=== PATIENT | male | born 1950 | race Caucasian/White ===

== ENCOUNTER 2019-04-17 22:50 | Inpatient (IN) | payer OTHER, MEDICAID ==
[~2019-04-17] VITALS: Ht 170.2 cm; Wt 78.5 kg
--- NOTE | 2019-04-17 22:55 | NUR ---
PT TREVER ALS. TAKEN TO BED 9
--- NOTE | 2019-04-17 23:00 | NUR ---
68 Y/O MALE BIB [facility], STAFF REPORTS PT WAS RUNNING A FEVER AND DECREASED SP02. UPON ARRIVAL TO ER, GCS 13 (BASELINE PER [facility]), TEMP 103.5, RESP EVEN AND UNLABORED, RHONCI HEARD IN BILAT BASES. BOWEL SOUNDS NORMOACTIVE IN ALL QUADRANTS. G TUBE NOTED, PT SUFFERS FROM DYSPHAGIA AND IS NPO. ALL MEDS/ FOOD IS THROUGH G TUBE. PT IS BEDBOUND, UNABLE TO AMBULATE (AT BASELINE PER [facility]). SKIN INTACT. CAP REFILL <3. COOL MEASURE IMPLEMENTED UPON ARRIVAL. PMH: CVA, CEREBRAL PALSY, SCHIZO, DEMENTA, DM, EPILEPSY NKA
[2019-04-17] MEDS ORDERED: BLOOD GLUCOSE MONITORING 1 DEV DEV FS STA (23:01)
[2019-04-17] MEDS ORDERED: NACL 0.9% 0 ML IV STA (23:01)
[2019-04-17 23:02] VITALS: BP 106/55
[2019-04-17] MEDS ORDERED: IBUPROFEN 600 MG TAB PO ONE (23:05)
--- NOTE | 2019-04-17 23:30 | NUR ---
BASED ON THE ABG RESULTS PT WAS PLACED 7L SIMPLE MASK WITH SPO2 OF 95%.
[2019-04-17 23:39] LABS: HEMATOCRIT 39.6 % (36-52); HEMOGLOBIN 13.5 g/dL (12.0-18.0); MEAN CORPUSCULAR HEMOGLOBIN 32 pg (27-31); MEAN CORPUSCULAR HGB CONC 34 g/dL (33-37); MEAN CORPUSCULAR VOLUME 93.5 fL (80-94); PLATELET COUNT (AUTO) 125 K/uL (140-450); RED BLOOD CELL COUNT(AUTO) 4.23 MIL/uL (4.20-6.10); RED CELL DISTRIBUTION WIDTH 15.8 % (11.6-13.7); WHITE BLOOD COUNT (AUTO) 7.3 K/uL (4.8-10.8)
[2019-04-17 23:53] LABS: ALBUMIN 2.9 g/dL (3.4-5.0); ANION GAP 9.2 (8-16); CARBON DIOXIDE 29.6 mmol/L (21-32); CREATININE 0.8 mg/dL (0.6-1.3); POTASSIUM 4.8 mmol/L (3.5-5.1); TOTAL BILIRUBIN 0.2 mg/dL (0.0-1.0)
[2019-04-17 23:59] LABS: PROTHROMBIN TIME 11.4 secs (10.8-13.4)
[2019-04-18] VITALS (7 sets, daily range): BP systolic 84–113; BP diastolic 42–60
--- NOTE | 2019-04-18 | NUR ---
STRAIGHT CATH PROCEDURE DONE AT BEDSIDE TO OBTAIN URINE SAMPLE. PT TOLERATED PROCEDURE WELL. VSS
[2019-04-18 00:01] LABS: EOSINOPHILS % (MANUAL) 1 % (0-4); LYMPHOCYTES % (MANUAL) 6 % (20-46); MONOCYTES % (MANUAL) 7 % (5-12)
[2019-04-18 00:32] LABS: APPEARANCE,URINE SL CLOUDY (CLEAR); BILIRUBIN,URINE NEGATIVE (NEGATIVE); BLOOD, URINE 1+ (NEGATIVE); COLOR,URINE YELLOW (YELLOW); LEUKOCYTE ESTERASE ,URINE 3+ (NEGATIVE); NITRITE, URINE NEGATIVE (NEGATIVE); UGLUCOSE NEGATIVE (NEGATIVE)
[2019-04-18 00:46] LABS: RBC,URINE TOO NUMEROUS TO COUN /HPF (0-5); WBC,URINE TOO MANY TO COUNT /HPF (0-5)
[2019-04-18] MEDS ORDERED: ONDANSETRON 4 MG/2 ML VIAL IM/IVP PRN (01:30)
[2019-04-18] MEDS ORDERED: ACETAMINOPHEN 325 MG TAB PO PRN (01:30)
[2019-04-18] MEDS ORDERED: ALBUTEROL SULFATE/IPRATROPIU 3 ML SOL IH PRN (01:30)
[2019-04-18] MEDS ORDERED: NACL 0.9% 1,000 ML IV SCH ×3 (01:30→10:15)
[2019-04-18] MEDS ORDERED: DOCUSATE SODIUM 100 MG GELCAP PO PRN (01:30)
[2019-04-18] MEDS ORDERED: FAMO40PD4 PO (02:00)
[2019-04-18] MEDS ORDERED: CARB100S PO (02:00)
[2019-04-18] MEDS ORDERED: HUM SUBQ (02:00)
[2019-04-18] MEDS ORDERED: [UNRECOGNIZED DRUG - CODE] GT (02:00)
[2019-04-18] MEDS ORDERED: APIX2.5 GT (02:00)
[2019-04-18] MEDS ORDERED: QUET300T1 GT (02:01)
[2019-04-18] MEDS ORDERED: VALP250S5 GT (02:01)
[2019-04-18] MEDS ORDERED: MID5 GT (02:01)
--- NOTE | 2019-04-18 02:35 | NUR ---
RECEIVED PATIENT FROM ED VIA GURNEY. BEDSIDE REPORT DONE. PATIENT IS ON 7LPM VIA MASK. IV ACCESS ON RIGHT THUMB 20 GAUGE, SALINE LOCK. SKIN IS INTACT. CALL LIGHT WITHIN PATIENT REACH. VITAL SIGNS TAKEN. INITIAL ASSESSMENT DONE. BED IN LOW, SAFETY MEASURES IN PLACE. MRSA SWAB DONE AND SENT TO LAB. ORIENTED TO ROOM. CALL LIGHT PLACED WITHIN PATIENT REACH. WILL CONTINUE TO MONITOR PATIENT.
--- NOTE | 2019-04-18 02:44 | NUR ---
Pt transferred to Tele via [facility] room 107-b
[2019-04-18] MEDS ORDERED: INSULIN LISPRO SLIDING SCALE 100 UNITS/ML VIAL SUBQ PRN (03:25)
[2019-04-18] MEDS ORDERED: ONDANSETRON 4 MG/2 ML VIAL IVP PRN (03:25)
--- NOTE | 2019-04-18 04:00 | NUR ---
VITALS TAKEN AT THIS TIME. VISIBLE CHEST RISE AND FALL NOTED. WILL CONTINUE TO MONITOR PATIENT.
[2019-04-18] MEDS ORDERED: cefTRIAXone 1,000 MG VIAL ONE (04:25)
[2019-04-18] MEDS: BLOOD GLUCOSE MONITORING 1 DEV DEV FS SCH ×4 (06:10→21:00)
--- NOTE | 2019-04-18 06:13 | NUR ---
PATIENT NOTED WITH BLOOD GLUCOSE RESULT OF 94. NO INSULIN COVERAGE NEEDED.
--- NOTE | 2019-04-18 06:14 | NUR ---
PATIENT IN STABLE CONDITION. VISIBLE CHEST RISE AND FALL NOTED. CALL LIGHT WITHIN PATIENT REACH. WILL ENDORSE TO AM SHIFT NURSE FOR CONTINUITY OF CARE.
--- NOTE | 2019-04-18 06:35 | NUR ---
SPOKE TO DR. NASREEN GLOVER. PATIENT'S BLOOD PRESSURES ARE IN THE 80/50s. NEW ORDERS MADE AND CARRIED OUT.WILL CONTINUE TO MONITOR PATIENT.
[2019-04-18] MEDS: NACL 0.9% 1,000 ML IV SCH ×3 (06:45→10:23)
--- NOTE | 2019-04-18 07:10 | NUR ---
RECEIVED REPORT FROM BUILD AUTOMATION ENGINEER NURSE. PT IS SLEEPING. NO SIGNS OF DISTRESS. PT HAS O2 MASK AT 7L. PT HAS IV AT RIGHT THUB Addendum: 04/18/19 at 0740 by Lucinda Dominguez RN RECEIVED REPORT FROM BUILD AUTOMATION ENGINEER NURSE. PT IS SLEEPING. NO SIGNS OF DISTRESS. PT HAS O2 MASK AT 7L. PT HAS IV AT RIGHT THUMB 20G INFUSING AT BOLUS. PT HAS NKA, FULL CODE. PT HAS GTUBE. SKIN INTACT. WILL CONTINUE TO MONITOR
[2019-04-18 07:20] LABS: BASOPHILS % (AUTO) 0.6 % (0.0-2.0); HEMATOCRIT 39.7 % (36-52); HEMOGLOBIN 13.6 g/dL (12.0-18.0); LYMPHOCYTES # (AUTO) 0.8 K/uL (2.0-11.5); MEAN CORPUSCULAR HEMOGLOBIN 32 pg (27-31); MEAN CORPUSCULAR HGB CONC 34 g/dL (33-37); MONOCYTES # (AUTO) 0.5 K/uL (0.8-1.0); MONOCYTES % (AUTO) 9.4 % (1.7-9.3); NEUTROPHILS # (AUTO) 4.3 K/uL (1.8-7.7); PLATELET COUNT (AUTO) 103 K/uL (140-450); RED BLOOD CELL COUNT(AUTO) 4.22 MIL/uL (4.20-6.10); RED CELL DISTRIBUTION WIDTH 15.8 % (11.6-13.7); WHITE BLOOD COUNT (AUTO) 5.7 K/uL (4.8-10.8)
[2019-04-18 07:47] LABS: ANION GAP 9.5 (8-16); CARBON DIOXIDE 28.4 mmol/L (21-32); CREATININE 0.9 mg/dL (0.6-1.3); POTASSIUM 3.9 mmol/L (3.5-5.1)
[2019-04-18] MEDS: DEXT 5% / NACL 0.45% 1,000 ML IV SCH ×3 (08:10→21:15)
--- NOTE | 2019-04-18 08:19 | NUR ---
BP 95/ 47 AFTER BOLUS. SPOKE TO DAVIN TO PAGE MARTA BARRIOS REGARDING PT'S STATUS. HANGED D5 1/2 NS AT 1OO ML/HR.
--- NOTE | 2019-04-18 08:35 | NUR ---
SPOKE TO DR. DOWNEY. HE ORDERED TO TRANSFER PT TO ICU AND GIVE 1000 NS BOLUS.
--- NOTE | 2019-04-18 08:37 | NUR ---
PATIENT HAS BEEN SCREENED AND CATEGORIZED HIGH NUTRITION RISK. PATIENT WILL BE SEEN WITHIN 1-2 DAYS OF ADMISSION. 04/18/19-04/19/[address]
--- NOTE | 2019-04-18 08:41 | NUR ---
HANGED NS 1000 AT BOLUS.
[2019-04-18] MEDS ORDERED: LACTOBACILLUS RHAMNOSUS GG 1 EACH CAP PO SCH (09:00)
--- NOTE | 2019-04-18 09:23 | NUR ---
PT. ADMITTED WITH LOW PAWEL SCALE AT RISK, CONTINUE TO FOLLOW PRESSURE ULCER PREVENTION INTERVENTIONS. -TURN AND REPOSITION PATIENT Q 2H -ASSESS AND MONITOR SKIN CONDITION DURING POSITION CHANGE -OFFLOAD BILATERAL HEELS BY PLACING PILLOWS UNDER CALVES AT ALL TIMES, UNLESS OTHERWISE CONTRAINDICATED -PRESSURE REDISTRIBUTION BY PLACING PILLOWS AND OFFLOADING SACRALCOCCYX -KEEP SKIN CLEAN AND DRY AT ALL TIMES.
--- NOTE | 2019-04-18 10:13 | NUR ---
Spoke to Dr. Lam to update on the patient's condition. BP 95/53 pulse 85 and pulse ox 96% on a mask. gave order to give 1 additional liter and hold off on transfer to ICU and will be in shortly to evaluate patient.
--- NOTE | 2019-04-18 10:14 | NUR ---
SHAHRAM AND REFUGIO TALKED TO DR. DOWNEY REGARDING TRANSFER TO ICU. DR. DOWNEY ORDERED TO HOLD TRANSFER TO ICU AND GIVE ANOTHER BOLUS OF NS. WILL CONTINUE TO MONITOR
--- NOTE | 2019-04-18 10:26 | NUR ---
HANGED 1L OF NS RUNNING BOLUS ORDERED. PT'S CURRENT BP IS 87/49
--- NOTE | 2019-04-18 11:00 | NUR ---
BP 104/53, P 98, R 21, 02 98%. WILL CONTINUE TO MONITOR
--- NOTE | 2019-04-18 11:34 | NUR ---
GLUCOSE CHECKED= 82, NO INSULIN COVERAGE
--- NOTE | 2019-04-18 11:40 | NUR ---
DISCHARGE PLANNING: THIS IS A 68 Y/O MALE PATIENT FROM [facility], WHO CAME IN DUE TO CONGESTION, COUGH, HIGH FEVER AND LOW O2 SAT FOR THE PAST 1 DAY. PAST MEDICAL HISTORY INCLUDE DEMENTIA AND PNEUMONIA. INITIAL DIAGNOSIS OF UROSEPSIS. CURRENT LABS INCLUDE WBC 5.7, H/H 13.6/39.7, NA/K 135/3.9, BUN/CREA 31/0.9. ON ROCEPHIN. MRSA NARES, URINE AND BLOOD CULTURES PENDING. ID CONSULT WITH DR. EARLY IN PLACE. DC PLAN BACK TO [facility] ONCE STABLE. Addendum: 04/22/19 at 1227 by Sarah Del Cid CM Pt discussed during interdisciplinary meeting. Pt on droplet isolation for Influenza B+; on Tamiflu (day 4 today) and IV Rocephin. Pt needs 5 more days of IV Rocephin. DC plan is SNF for continued IV abx. 11:30am - Left a voicemail for Ofelia with [facility]. Referral faxed to [facility]. DC plan tomorrow Thursday. CARMEN Loredo/GIRMA Ext [phone] Addendum: 04/22/19 at 1555 by Sarah Del Cid CM [facility] unable to accept this patient. Referral sent to [facility]. Alison will continue following up. DIVINE Loredo Ext [phone] Addendum: 04/23/19 at 1257 by Taye Norman ALISON contacted Sadie from [facility] [phone]. Per Sadie, there are no isolation beds available and said to call tomorrow. ALISON/GIRMA will follow up as necessary. Addendum: 04/25/19 at 0847 by Iris Alcala RECEIVED A CALL FROM BLU OF [facility], TO FOLLOW UP ON PATIENT'S DC ORDER. INFORMED HER THAT PER [facility], THEY DO NOT HAVE AN ISO ROOM AT THIS TIME. SHE STATED TO [facility]. WILL FAX INQUIRY. Addendum: 04/25/19 at 0913 by Iris Alcala CM REFERRAL SENT TO [facility]. WILL FOLLOW UP. Addendum: 04/25/19 at 1025 by Iris Alcala CM REFERRAL SENT TO [facility]. WILL FOLLOW UP. Addendum: 04/25/19 at 1032 by Iris Alcala CM REFERRAL SENT TO [facility]. WILL FOLLOW UP. Addendum: 04/25/19 at 1330 by Iris Alcala CM 1156: PER IVORY INTAKE AT [facility], WILL REVIEW THE REFERRAL. PER GAVINO ESPINOSA [facility], NO ISO BED AT THIS TIME. PER [facility], NO ISO BEDS AT THIS TIME. Addendum: 04/25/19 at 1332 by Iris Alcala CM 1325: PER IVORY OF [facility], PATIENT EXHAUSTED ALL HIS MEDICARE DAYS AND SECONDARY WILL NOT COVER SNF DAYS. ALEJO LEAL NURSE MADE AWARE. Addendum: 04/25/19 at 1604 by Iris Alcala CM LEFT MESSAGE TO OFELIA RAYO AT [facility] REGARDING UPDATES ON PLACEMENT. Addendum: 04/25/19 at 1637 by Iris Alcala CM CHARGE NURSE MADE AWARE THAT THERE IS NO ACCEPTING FACILITY AT THIS TIME. SHE STATED SHE WILL INFORM DR. DOWNEY.
--- NOTE | 2019-04-18 12:48 | NUR ---
04/18/19 RD INITIAL ASSESSMENT COMPLETED PLEASE REFER TO NUTRITION ASSESSMENT UNDER CARE ACTIVITY FOR ESTIMATED NUTRITIONAL NEEDS. 1. RECOMMEND CONTINUOUS TUBE FEEDING WITH GLUCERNA 1.2 @ GOAL RATE OF 70 ML/HR. START AT 20 ML/HR, INCREASE BY 20 ML/HR Q4H -THIS WILL PROVIDE 1352 ML OF WATER, 2016 KCAL AND 100 GM OF PROTEIN, WHICH MEETS 100% OF NUTRIENT NEEDS 2. RECOMMEND FREE WATER FLUSH OF [address] TO FOLLOW-UP 2-3 DAYS, HIGH RISK SARA WING RD
--- NOTE | 2019-04-18 17:00 | NUR ---
UNABLE TO CHECK GLUCOSE. PT IS REFUSING AND COMBATIVE. UNABLE TO DO INFLUENZA A AND B SWAB WELL. WILL CONTINUE TO MONITOR
--- NOTE | 2019-04-18 17:30 | NUR ---
STARTED TUBE FEEDING AT 20 ML/HR THEN ADD ANOTHER 20 Q4H UNTIL 70ML/HR IS REACHED. FREE WATER FLUSHED AT 110ML/HR
--- NOTE | 2019-04-18 18:52 | NUR ---
INFLUENZA A AND B SWAB DONE AND LABELED.
[2019-04-18] MEDS ORDERED: LORazepam 2 MG/ML VIAL IVP PRN (18:55)
--- NOTE | 2019-04-18 19:20 | NUR ---
REPORT GIVEN TO SOFTWARE TEST SPECIALIST NURSE FOR CONTINUITY OF CARE. PT IS STABLE. CALL LIGHT WITHIN PT'S REACH.
--- NOTE | 2019-04-18 19:20 | NUR ---
RECIEVED PT. AAOX1 , IV SITE INTACT AND PATENT , ON G TUBE , LOW [id number] SCALE . O2 SAT WNL - ON O2 AT 4LPM/ MASK , ON FISH PROCESSING SUPERVISOR .POC DISCUSSED BIT POOR UNDERSTANDING DUE TO MENTAL STATUS . WILL CONT. TO MONITOR.
[2019-04-18 20:53] LABS: CREATINE KINASE MB 0.9 ng/mL (0-3.6)
[2019-04-18] MEDS: aMILoride 5 MG TAB GT SCH (21:00)
[2019-04-18] MEDS ORDERED: CIT AC GT SCH (21:00)
[2019-04-18] MEDS ORDERED: OSELTAMIVIR PHOSPHATE 75 MG CAP PO SCH (21:00)
[2019-04-18] MEDS: APIXABAN 2.5 MG TAB GT SCH (21:00)
[2019-04-18] MEDS ORDERED: POTASSIUM BICARBONATE GT SCH (21:00)
[2019-04-18] MEDS: ACETAMINOPHEN 325 MG TAB GT PRN (21:15)
[2019-04-19] VITALS: BP 110/62
[2019-04-19] MEDS: QUEtiapine FUMARATE 100 MG TAB GT SCH ×3 (01:29→21:13)
[2019-04-19 04:00] VITALS: BP 110/69
[2019-04-19] MEDS: aMILoride 5 MG TAB GT SCH ×3 (05:00→21:15)
--- NOTE | 2019-04-19 05:11 | NUR ---
INFORM PHARMACY ABOUT DELAYED GIVEN OF TAMIFLU , SEROQUEL ,AND TEGRETOL - THE PHARMACY SAID ITS OK TO GIVE THE NEXT DOSE OF SEROQUEL AND TEGRETOL AT 9AM , EXCEPT THE TAMIFLU - THET WILL RE ARRANGE THE SCHEDULE OF TAMIFLU.
[2019-04-19] MEDS: BLOOD GLUCOSE MONITORING 1 DEV DEV FS SCH ×4 (06:00→20:57)
[2019-04-19] MEDS: INSULIN LISPRO 100 UNITS/ML VIAL SUBQ SCH ×5 (06:01→23:26)
[2019-04-19 07:17] LABS: BASOPHILS # (AUTO) 0.1 K/uL (0.00-0.22); BASOPHILS % (AUTO) 0.7 % (0.0-2.0); EOSINOPHILS % (AUTO) 0.1 % (0.0-4.0); HEMATOCRIT 39.8 % (36-52); HEMOGLOBIN 12.6 g/dL (12.0-18.0); LYMPHOCYTES # (AUTO) 1.6 K/uL (2.0-11.5); LYMPHOCYTES % (AUTO) 21.4 % (20.5-51.1); MEAN CORPUSCULAR HEMOGLOBIN 31 pg (27-31); MEAN CORPUSCULAR HGB CONC 32 g/dL (33-37); MEAN CORPUSCULAR VOLUME 99.2 fL (80-94); MONOCYTES # (AUTO) 0.7 K/uL (0.8-1.0); MONOCYTES % (AUTO) 9.8 % (1.7-9.3); NEUTROPHILS # (AUTO) 5.2 K/uL (1.8-7.7); PLATELET COUNT (AUTO) 102 K/uL (140-450); RED BLOOD CELL COUNT(AUTO) 4.01 MIL/uL (4.20-6.10); RED CELL DISTRIBUTION WIDTH 16.3 % (11.6-13.7); WHITE BLOOD COUNT (AUTO) 7.6 K/uL (4.8-10.8)
[2019-04-19 07:27] LABS: ANION GAP 10.3 (8-16); CARBON DIOXIDE 29.4 mmol/L (21-32); CREATININE 0.6 mg/dL (0.6-1.3); POTASSIUM 3.7 mmol/L (3.5-5.1)
--- NOTE | 2019-04-19 07:41 | NUR ---
RECEIVED BEDSIDE REPORT FROM PM RN PT AWAKE IN BED. GTUBE INFUSING. HEAD OF BED ELEVATED ABOVE 30 DEGREES. CALL LIGHT WITHIN REACH ALL SAFETY MEASURES ARE IN PLACE. WILL CONTINUE TO MONITOR.
--- NOTE | 2019-04-19 07:41 | NUR ---
ENDORSED PT- STABLE - ENDORSED TO NAVIN THAT INFORM NASREEN THE ELIQUIS NOT GIVN DUE TO LOW PLT . AND MIRAMOR NOT GIVEN DUE TO NOT AVAILABLE .
[2019-04-19 07:44] LABS: CREATINE KINASE MB 1.2 ng/mL (0-3.6)
[2019-04-19 08:15] VITALS: BP 123/62
[2019-04-19] MEDS ORDERED: OSELTAMIVIR PHOSPHATE 75 MG CAP PO SCH ×2 (09:00→14:00)
--- NOTE | 2019-04-19 09:45 | NUR ---
FREQUENT ROUNDING ON PT PT AWAKE IN BED PT APPEARS STABLE AND IN NO APPARENT DISTRESS. ALL SAFETY MEASURES ARE IN PLACE WILL CONTINUE TO MONITOR
[2019-04-19] MEDS: VALPROIC ACID 250 MG/5 ML UDC GT SCH ×2 (11:06→21:14)
[2019-04-19] MEDS: APIXABAN 2.5 MG TAB GT SCH ×2 (11:07→21:21)
[2019-04-19] MEDS: FAMOTIDINE 20 MG TAB PO SCH ×2 (11:08→21:14)
[2019-04-19] MEDS: OSELTAMIVIR PHOSPHATE 75 MG CAP PO SCH (11:10)
--- NOTE | 2019-04-19 12:30 | NUR ---
PT FINGERSTICK GLUCOSE WITHIN NORMAL LIMITS. ADMINISTERED 1 UNIT HUMALOG SCHEDULED DOSE. WILL CONTINUE TO MONITOR PT
[2019-04-19] MEDS: DEXT 5% / NACL 0.45% 1,000 ML IV SCH ×2 (12:44→23:22)
--- NOTE | 2019-04-19 14:35 | NUR ---
FREQUENT ROUNDING ON PT PT APPEARS STABLE AND IN NO APPARENT DISTRESS. ALL SAFETY MEASURES ARE IN PLACE WILL CONTINUE TO MONITOR
--- NOTE | 2019-04-19 16:43 | NUR ---
FREQUENT ROUNDING ON PT PT APPEARS STABLE AND IN NO APPARENT DISTRESS, ALL SAFETY MEASURES ARE IN PLACE WILL CONTINUE TO MONITOR
--- NOTE | 2019-04-19 17:15 | NUR ---
WET ROOM SUPERVISOR assessment/discharge plan Basic Screen: Yes Name: Ofelia Anne Relationship: registered nurse hh case manager from [facility] Pre-Admission Living Arrangements: Other Other: [facility] ([employer]) Prior ADL Needs Assistance Healthcare Decision Maker: Other Other: [facility] Advance Directive No Tentative Discharge Plan Summary: Per Application Coordinator Bianca Huff from [facility] , patient can return to their facility upon discharge, however, cannot be on abx iv/s. Patient has a nephew, Kannan Epstein . Bianca stated the [facility] should be contacted for medical consents. Bianca reported [facility] staff can provide transportation for patient to return to their facility upon discharge from hospital. Patient's pcp is . She told me patient is able to take a couple of steps with the assistance of two persons. Oracle Database Architect and/or Electroless Plater will follow up as needed. Signature: CARMEN Caballero Date: Apr 19, 2019
--- NOTE | 2019-04-19 18:01 | NUR ---
CALLED [facility] FOR TUBE FEEDING. LEFT VOICEMAIL.
--- NOTE | 2019-04-19 19:27 | NUR ---
ENDORSED PT TO PM RN PT AWAKE IN BED PT APPEARS STABLE AND IN NO APPARENT DISTRESS. ALL SAFETY MEASURES ARE IN PLACE,
--- NOTE | 2019-04-19 19:28 | NUR ---
RECEIVED BEDSIDE REPORT FROM DAY RN. PT AWAKE IN BED. ABLE TO MOUTH A FEW WORDS. GTUBE FEEDINGS CURRENTLY STOPPED AWAITING FOR NEW FEEDING BAG. HEAD OF BED ELEVATED ABOVE 30 DEGREES. FALL AND SEIZURES PRECAUTIONS IN PLACE. PT ON DROPLET PRECAUTION FOR INFLU A POSITIVE. CALL LIGHT WITHIN REACH ALL SAFETY MEASURES ARE IN PLACE. WILL CONTINUE TO MONITOR.
--- NOTE | 2019-04-19 21:15 | NUR ---
NEW TUBE FEEDING STARTED PER ORDERS. PT WITH NO RESIDUAL. BLOOD SUGAR 109 NO COVERAGE NEEDED. ALL JASWINDER MEDICATIONS CRUSHED AND GIVEN VIA G TUBE. PT TOLERATED WELL. HOB ELEVATED, CALL LIGHT IS WITHIN REACH. WILL CONTINUE TO MONITOR.
--- NOTE | 2019-04-19 22:40 | NUR ---
VITAL SIGNS ARE WITHIN NORMAL LIMITS. FLACC 0. NO S/S OF DISTRESS. CALL LIGHT IS WITHIN REACH. WILL CONTINUE TO MONITOR.
[2019-04-20] VITALS: BP 105/66
--- NOTE | 2019-04-20 | NUR ---
VITAL SIGNS ARE WITHIN NORMAL LIMITS. NO S/S OF DISTRESS. CALL LIGHT IS WITHIN REACH. WILL CONTINUE TO MONITOR.
--- NOTE | 2019-04-20 02:17 | NUR ---
PATIENT IS LAYING IN BED AWAKE. NO S/S OF DISTRESS. SAFETY MEASURES ARE IN PLACE. CALL LIGHT IS WITHIN REACH.
--- NOTE | 2019-04-20 04:00 | NUR ---
PATIENT WAS CLEANED AND REPOSITION FOR COMFORT. ALL SAFETY MEASURES ARE IN PLACE.
--- NOTE | 2019-04-20 04:30 | NUR ---
PATIENT IS REFUSING VITALS SIGNS IS AGITATED AND COMBATIVE. PT OCCASIONALLY YELLS, "GO TO HELL, GO TO HELL YOU BITCH" SOMETIMES TALKING TO HIMSELF. PT IN BED NOT PULLING ANY MEDICAL LINES AND ON TELE MONITOR. WILL CONTINUE TO MONITOR.
[2019-04-20] MEDS: aMILoride 5 MG TAB GT SCH ×3 (05:00→20:53)
--- NOTE | 2019-04-20 05:34 | NUR ---
PT STILL REFUSING VITAL SIGNS AND ALSO ACCU CHECK. EDUCATED PT ON IMPORTANCE ALTHOUGH HE IS ON CONTINUOS G-TUBE FEEDING. PT YELLING AND SHAKING HEAD NO.
[2019-04-20] MEDS: INSULIN LISPRO 100 UNITS/ML VIAL SUBQ SCH ×4 (06:00→23:52)
[2019-04-20] MEDS: BLOOD GLUCOSE MONITORING 1 DEV DEV FS SCH ×4 (06:05→20:47)
--- NOTE | 2019-04-20 06:06 | NUR ---
JASWINDER SHAHRZADALOG NOT GIVEN D/T PT REFUSING ACCU CHECK. PT IS COMBATIVE AND SHAKING HEAD NO. SAFETY MEASURES ARE IN PLACE. WILL CONTINUE TO MONITOR.
--- NOTE | 2019-04-20 06:50 | NUR ---
PT IS RESTING COMFORTABLY IN BED WITH NO S/S OF DISTRESS. PT IS STABLE. WILL ENDORSE TO DAY RN.
--- NOTE | 2019-04-20 07:10 | NUR ---
RECEIVED REPORT FROM NIGHT NURSE. PT IN STABLE CONDITION, AAOX1, IN BED AWAKE, NO DISTRESS NOTED. RESPIRATIONS EVEN AND UNLABORED ON ROOM AIR. IV IN PLACE, PATENT AND ASYMPTOMATIC INFUSING PER ORDER IN R THUMB. G TUBE IN PLACE INFUSING GLUCERNA 1.2 PER ORDER. SKIN INTACT. PT INCONTINENT. SAFETY MEASURES IN PLACE, CALL LIGHT WITHIN REACH. BED IN LOW POSITION. WILL CONTINUE TO MONITOR.
[2019-04-20 08:00] VITALS: BP 105/72
[2019-04-20] MEDS: DEXT 5% / NACL 0.45% 1,000 ML IV SCH ×2 (08:30→18:48)
[2019-04-20] MEDS: OSELTAMIVIR PHOSPHATE 75 MG CAP PO SCH (08:42)
[2019-04-20] MEDS: VALPROIC ACID 250 MG/5 ML UDC GT SCH ×2 (08:44→20:52)
[2019-04-20] MEDS: FAMOTIDINE 20 MG TAB PO SCH ×2 (08:44→20:52)
[2019-04-20] MEDS: QUEtiapine FUMARATE 100 MG TAB GT SCH ×2 (08:44→20:52)
[2019-04-20] MEDS: APIXABAN 2.5 MG TAB GT SCH ×2 (08:56→21:01)
--- NOTE | 2019-04-20 08:56 | NUR ---
MEDICATIONS GIVEN PER ORDER. HELD ELIQUIS DUE TO LOW PLATELETS. PT IS VERY COMBATIVE. DIFFICULT TO GIVE MEDICATIONS. INSULTING AND KICKING/PUNCHING. WILL CONTINUE TO MONITOR.
--- NOTE | 2019-04-20 11:27 | NUR ---
0900 CARBAMAZEPINE GIVEN AT THIS TIME DUE TO UNAVAILABILITY. BLOOD GLUCOSE MONITORED 122, NO COVERAGE NEEDED. SAFETY MEASURES IN PLACE. CALL LIGHT WITHIN REACH. WILL CONTINUE TO MONITOR.
--- NOTE | 2019-04-20 13:30 | NUR ---
PT IN BED ASLEEP, NO DISTRESS NOTED, FLACC 0. SAFETY MEASURES IN PLACE, CALL LIGHT WITHIN REACH, BED IN LOW POSITION. WILL CONTINUE TO MONITOR.
--- NOTE | 2019-04-20 15:49 | NUR ---
PT IN BED, ASLEEP. NO DISTRESS NOTED, FLACC 0. RESPIRATIONS EVEN AND UNLABORED. SAFETY MEASURES IN PLACE. CALL LIGHT WITHIN REACH, WILL CONTINUE TO MONITOR.
[2019-04-20 16:00] VITALS: BP 128/70
--- NOTE | 2019-04-20 17:13 | NUR ---
TUBE FEEDING CHANGED AT THIS TIME. PT IN BED AWAKE, NO DISTRESS NOTED, FLACC 0, RESPIRATIONS EVEN AND UNLABORED ON ROOM AIR. SAFETY MEASURES IN PLACE, CALL LIGHT WITHIN REACH. WILL CONTINUE TO MONITOR.
--- NOTE | 2019-04-20 19:05 | NUR ---
ENDORSED PT TO NIGHT NURSE IN STABLE CONDITION FOR CONTINUITY OF CARE.
--- NOTE | 2019-04-20 19:11 | NUR ---
RECEIVED BEDSIDE REPORT FROM DAY RN. PT AWAKE IN BED. ABLE TO MOUTH A FEW WORDS. GTUBE FEEDINGS: GLUCERNA 1.2 AT 70M/H. HEAD OF BED ELEVATED ABOVE 30 DEGREES. SKIN IS INTACT. FALL AND SEIZURES PRECAUTIONS IN PLACE. PT ON DROPLET PRECAUTION FOR INFLU A POSITIVE. CALL LIGHT WITHIN REACH ALL SAFETY MEASURES ARE IN PLACE. WILL CONTINUE TO MONITOR.
--- NOTE | 2019-04-20 20:53 | NUR ---
VSS. JASWINDER MEDICATION CRUSHED AND GIVEN VIA G-TUBE. PT WITH NO RESIDUALS. BLOOD SUGAR 110 NO COVERAGE PER PROTOCOL. ALL SAFETY MEASURES ARE IN PLACE. WILL CONTINUE TO MONITOR.
--- NOTE | 2019-04-20 22:19 | NUR ---
PT IS SLEEPING COMFORTABLY IN BED. CHEST RISE AND FALL NOTED. HOB ELEVATED. NO S/S OF DISTRESS. WILL CONTINUE TO MONITOR.
[2019-04-21] VITALS: BP 127/78
--- NOTE | 2019-04-21 | NUR ---
VITAL SIGNS ARE WITHIN NORMAL LIMITS. BLOOD SUGAR IS 108 NO COVERAGE GIVEN PER PARAMETER.
--- NOTE | 2019-04-21 02:00 | NUR ---
PATIENT IS SLEEPING COMFORTABLY IN BED WITH EYES CLOSED. NO S/S OF DISTRESS. CHEST RISE AND FALL NOTED.
[2019-04-21] MEDS: DEXT 5% / NACL 0.45% 1,000 ML IV SCH ×2 (04:30→14:30)
--- NOTE | 2019-04-21 04:30 | NUR ---
PT IS SLEEPING COMFORTABLY IN BED WITH EYES CLOSED. NO S/S OF DISTRESS. SAFETY MEASURES ARE IN PLACE.
[2019-04-21] MEDS: INSULIN LISPRO 100 UNITS/ML VIAL SUBQ SCH ×3 (05:03→18:00)
[2019-04-21] MEDS: BLOOD GLUCOSE MONITORING 1 DEV DEV FS SCH ×4 (05:03→20:42)
[2019-04-21] MEDS: aMILoride 5 MG TAB GT SCH ×3 (05:03→20:47)
--- NOTE | 2019-04-21 05:03 | NUR ---
PATIENT BLOOD SUGAR 86 NO COVERAGE NEEDED. ADMINISTERED JASWINDER MEDICATION CRUSHED AND GIVEN VIA G-TUBE PT TOLERATED WELL. WITH NO RESIDUALS. HOB ELEVATED. ALL SAFETY MEASURES ARE IN PLACE. WILL CONTINUE TO MONITOR.
--- NOTE | 2019-04-21 07:20 | NUR ---
GAVE BEDSIDE REPORT TO DAY RN. PT ENDORSED IN STABLE CONDITION.
--- NOTE | 2019-04-21 07:25 | NUR ---
RECEIVED REPORT FROM NIGHT NURSE. PT IN STABLE CONDITION, NO DISTRESS NOTED, FLACC 0. IV IN PLACE INFUSING PER ORDER PATENT AND ASYMPTOMATIC. RESPIRATIONS EVEN AND UNLABORED ON ROOM AIR. SKIN INTACT. SAFETY MEASURES IN PLACE. CALL LIGHT WITHIN REACH, WILL CONTINUE TO MONITOR.
[2019-04-21 08:00] VITALS: BP 133/73
[2019-04-21] MEDS: OSELTAMIVIR PHOSPHATE 75 MG CAP PO SCH (09:00)
[2019-04-21] MEDS: FAMOTIDINE 20 MG TAB PO SCH ×2 (09:00→20:44)
[2019-04-21] MEDS: APIXABAN 2.5 MG TAB GT SCH ×2 (09:00→21:00)
[2019-04-21] MEDS: QUEtiapine FUMARATE 100 MG TAB GT SCH ×2 (09:00→20:45)
[2019-04-21] MEDS: VALPROIC ACID 250 MG/5 ML UDC GT SCH ×2 (09:00→20:44)
[2019-04-21 10:56] LABS: ANION GAP 6.9 (8-16); CARBON DIOXIDE 31.9 mmol/L (21-32); CREATININE 0.6 mg/dL (0.6-1.3); POTASSIUM 4.8 mmol/L (3.5-5.1)
[2019-04-21 10:58] LABS: BASOPHILS % (AUTO) 0.6 % (0.0-2.0); EOSINOPHILS # (AUTO) 0.1 K/uL (0-0.4); EOSINOPHILS % (AUTO) 2.4 % (0.0-4.0); HEMATOCRIT 35.7 % (36-52); LYMPHOCYTES # (AUTO) 1.5 K/uL (2.0-11.5); LYMPHOCYTES % (AUTO) 43.3 % (20.5-51.1); MEAN CORPUSCULAR HEMOGLOBIN 32 pg (27-31); MEAN CORPUSCULAR HGB CONC 34 g/dL (33-37); MEAN CORPUSCULAR VOLUME 94.7 fL (80-94); MONOCYTES # (AUTO) 0.4 K/uL (0.8-1.0); NEUTROPHILS # (AUTO) 1.5 K/uL (1.8-7.7); NEUTROPHILS % (AUTO) 42.7 % (42.2-75.2); PLATELET COUNT (AUTO) 92 K/uL (140-450); RED BLOOD CELL COUNT(AUTO) 3.77 MIL/uL (4.20-6.10); RED CELL DISTRIBUTION WIDTH 15.6 % (11.6-13.7); WHITE BLOOD COUNT (AUTO) 3.4 K/uL (4.8-10.8)
--- NOTE | 2019-04-21 11:53 | NUR ---
PT REFUSED BLOOD GLUCOSE CHECK AT THIS TIME. SCHEDULED INSULIN HELD. SAFETY MEASURES IN PLACE. CALL LIGHT WITHIN REACH. WILL CONTINUE TO MONITOR.
--- NOTE | 2019-04-21 13:42 | NUR ---
PT SCHDULED MEDICATION FOR 1300 NOT AVAILABLE, NOT GIVEN AT THIS TIME. PT IN BED ASLEEP, NO DISTRESS NOTED. SAFETY MEASURES IN PLACE. CALL LIGHT WITHIN REACH. WILL CONTINUE TO MONITOR.
--- NOTE | 2019-04-21 14:38 | NUR ---
04/21/19 RD FOLLOW UP COMPLETED PLEASE REFER TO NUTRITION ASSESSMENT UNDER CARE ACTIVITY FOR ESTIMATED NUTRITIONAL NEEDS. 1. CONTINUE CONTINUOUS TUBE FEEDING WITH GLUCERNA 1.2 @ GOAL RATE OF 70 ML/HR. START AT 20 ML/HR, INCREASE BY 20 ML/HR Q4H -THIS WILL PROVIDE 1352 ML OF WATER, 2016 KCAL AND 100 GM OF PROTEIN WHICH MEETS 100% OF NUTRIENT NEEDS 2. RECOMMEND FREE WATER FLUSH OF [address] TO FOLLOW-UP 2-3 DAYS, HIGH RISK SARA WING RD
[2019-04-21 16:00] VITALS: BP 141/75
--- NOTE | 2019-04-21 16:15 | NUR ---
BLOOD SUGAR CHECKED AT THIS TIME, RESULT 95. NO COVERAGE NEEDED. PT IN STABLE CONDITION. WILL CONTINUE TO MONITOR.
--- NOTE | 2019-04-21 18:15 | NUR ---
PT IN BED ASLEEP, NO DISTRESS NOTED, FLACC0. RESPIRATIONS EVEN AND UNLABORED ON ROOM AIR. SAFETY MEASURES IN PLACE. CALL LIGHT WITHIN REACH. WILL CONTINUE TO MONITOR.
--- NOTE | 2019-04-21 19:20 | NUR ---
REPORT GIVEN TO NIGHT NURSE FOR CONTINUITY OF CARE.
--- NOTE | 2019-04-21 19:21 | NUR ---
RECD. RESTING IN BED, AWAKE, ALERT/OX1. RESPIRATION EVEN AND UNLABORED. NO AGITATION NOTED. IV OF D51/2 NS AT 100 ML/HR INFUSING, RIGHT HAND G20. SAFETY MEASURES ENFORCED. SIDE RAILS WITH PAD, BED IN THE LOWEST POSITION. REORIENTED TO HOSPITAL SETTING. PLAN OF CARE DISCUSSED. UNABLE TO UNDERSTAND. NO APPEARANCE OF PAIN NOTED, FLACC -0.
[2019-04-21] MEDS ORDERED: CRUSHER, PILL MC ONE (20:53)
--- NOTE | 2019-04-21 21:00 | NUR ---
ELIQUIZ NOT GIVEN, PLATELET LOW- 92.
--- NOTE | 2019-04-21 21:00 | NUR ---
Patient's Plan of Care was discussed and reviewed with CONTENT ADMINISTRATOR: ANUSHA ASHTON
[2019-04-22] VITALS: BP 125/78
--- NOTE | 2019-04-22 | NUR ---
SLEEPING COMFORTABLY IN BED.
[2019-04-22] MEDS: DEXT 5% / NACL 0.45% 1,000 ML IV SCH ×4 (00:30→20:54)
--- NOTE | 2019-04-22 02:00 | NUR ---
STILL SLEEPING COMFORTABLY IN BED. OCCASIONAL UNPRODUCTIVE COUGHING NOTED.
--- NOTE | 2019-04-22 04:00 | NUR ---
SNORING WHILE SLEEPING IN BED.
[2019-04-22] MEDS: aMILoride 5 MG TAB GT SCH ×3 (05:58→20:56)
[2019-04-22] MEDS: INSULIN LISPRO 100 UNITS/ML VIAL SUBQ SCH ×5 (06:00→23:09)
--- NOTE | 2019-04-22 06:00 | NUR ---
AWAKE, AGITATED, REFUSED BLOOD SUGAR CHECK. GETS COMBATIVE, SHOUTING.
[2019-04-22 07:06] LABS: BASOPHILS % (AUTO) 0.6 % (0.0-2.0); EOSINOPHILS # (AUTO) 0.1 K/uL (0-0.4); EOSINOPHILS % (AUTO) 1.3 % (0.0-4.0); HEMATOCRIT 41.4 % (36-52); HEMOGLOBIN 13.9 g/dL (12.0-18.0); LYMPHOCYTES # (AUTO) 1.5 K/uL (2.0-11.5); LYMPHOCYTES % (AUTO) 36.2 % (20.5-51.1); MEAN CORPUSCULAR HEMOGLOBIN 32 pg (27-31); MEAN CORPUSCULAR HGB CONC 34 g/dL (33-37); MEAN CORPUSCULAR VOLUME 94.2 fL (80-94); MONOCYTES # (AUTO) 0.6 K/uL (0.8-1.0); MONOCYTES % (AUTO) 14.9 % (1.7-9.3); PLATELET COUNT (AUTO) 108 K/uL (140-450); RED CELL DISTRIBUTION WIDTH 15.3 % (11.6-13.7); WHITE BLOOD COUNT (AUTO) 4.3 K/uL (4.8-10.8)
--- NOTE | 2019-04-22 07:24 | NUR ---
CONDITION REMAIN STABLE. DOES NOT WANT TO BE TOUCHED. ENDORSED TO AM SHIFT NURSE FOR CONTINUITY OF CARE.
--- NOTE | 2019-04-22 07:25 | NUR ---
RECEIVED BEDSIDE REPORT FROM CREW DISPATCHER NURSE. PT LYING IN BED SUPINE. AA&OX1. RESPIRATIONS EVEN AND UNLABORED ON RA. FLACC 0. NO SIGNS OF DISTRESS NOTED. IV ON R HAND 20 G, DRY, PATENT, AND INTACT, INFUSING PER MD ORDERS. SKIN CLEAN AND DRY. G-TUBE IN PLACE AND INFUSING PER MD ORDER. PATIENT IS INCONTINENT AND BEDBOUND. DISCUSSED PLAN OF CARE WITH PATIENT AND REINFORCEMENT NEEDED. DROPLET PRECAUTION IN PLACE AND SIGN POSTED BY DOOR. SAFETY MEASURES IN PLACE. HOB ELEVATED IN 30 DEGREE. CALL LIGHT WITHIN REACH, BED IN LOW POSITION. BED ALARM ACTIVATED.
[2019-04-22] MEDS: BLOOD GLUCOSE MONITORING 1 DEV DEV FS SCH ×4 (07:30→21:07)
[2019-04-22 07:37] LABS: ANION GAP 11.3 (8-16); CARBON DIOXIDE 27.9 mmol/L (21-32); CREATININE 0.7 mg/dL (0.6-1.3); POTASSIUM 5.2 mmol/L (3.5-5.1)
[2019-04-22 08:00] VITALS: BP 131/74
[2019-04-22] MEDS: VALPROIC ACID 250 MG/5 ML UDC GT SCH ×2 (09:40→20:55)
[2019-04-22] MEDS: QUEtiapine FUMARATE 100 MG TAB GT SCH ×2 (09:40→20:56)
[2019-04-22] MEDS: OSELTAMIVIR PHOSPHATE 75 MG CAP PO SCH (09:41)
[2019-04-22] MEDS: FAMOTIDINE 20 MG TAB PO SCH ×2 (09:41→20:57)
[2019-04-22] MEDS: APIXABAN 2.5 MG TAB GT SCH ×2 (09:42→21:00)
--- NOTE | 2019-04-22 09:42 | NUR ---
CHECKED BP AND G-TUBE RESIDUAL PRIOR TO MED ADMINISTRATION, BP 124/69 PULSE 80 AND RECEIVED 0 FOR G-TUBE RESIDUAL. ADMINISTERED MEDS VIA G-TUBE. FLUSHED BEFORE AND AFTER MEDS ADMINISTER, MEDS EDUCATION PROVIDED TO PT AND REINFORCEMENT NEEDED DUE MENTAL STATUS. PT IS RESTING ON BED. RESPIRATION EVEN AND UNLABORED ON RA. NO SIGNS OF DISTRESS NOTE. HUNG A NEW BOTTLE OF FEEDING AND CHANGED ALL TUBING. SAFETY MEASURES IN PLACE. HOB ELEVATED IN 30 DEGREE. BED ALARM ACTIVATED.
[2019-04-22] MEDS ORDERED: SODIUM POLYSTYRENE 15 GM/60 ML UDBTL PO SCH (09:45)
--- NOTE | 2019-04-22 11:17 | NUR ---
HUNG A NEW BAG OF IVF, RESIDENTIAL LAWN SPECIALIST CHANGED AND CLEANED PT. PT IS RESTING ON BED AT THIS TIME. NO SIGNS OF DISTRESS NOTED. SAFETY MEASURES IN PLACE. HOB ELEVATED AND BED ALARM ACTIVATED.
--- NOTE | 2019-04-22 13:20 | NUR ---
ADMINISTERED SCHEDULED MEDS PER MD ORDER, PT'S BG CHECK IS 142. FLUSHED BEFORE AND AFTER MED ADMINISTER, MED EDUCATION PROVIDED TO PT AND REINFORCEMENT NEEDED. PT IS AWAKE AND RESTING ON BED. FLACC 0. NO SIGNS OF DISTRESS NOTED. SAFETY MEASURES IN PLACE. BED ALARM ACTIVATED.
--- NOTE | 2019-04-22 15:53 | NUR ---
PATIENT IS LYING IN BED WITH HOB AT 30 DEGREES. NO DISTRESS NOTED. SAFETY MEASURES ARE IN PLACE; BED ALARM, BED IN LOW POSITION, CALL LIGHT WITHIN REACH. FLACC 0. WILL CONTINUE TO MONITOR.
[2019-04-22 16:00] VITALS: BP 136/76
--- NOTE | 2019-04-22 17:50 | NUR ---
PT IS AWAKE AND RESTING ON BED. FLACC 0. RESPIRATION EVEN AND UNLABORED ON RA. NO SIGNS OF DISTRESS NOTED. SAFETY MEASURES IN PLACE. BED ALARM ACTIVATED.
--- NOTE | 2019-04-22 18:04 | NUR ---
CHECKED BLOOD GLUCOSE AND RECEIVED 105, ADMINISTERED 1 UNIT OF HUMALOG PER MD ORDER, MED EDUCATION PROVIDED AND REINFORCEMENT NEEDED. PT AWAKE AND RESTING ON BED. NO SIGNS OF DISTRESS NOTED. SAFETY MEASURES IN PLACE. BED ALARM ACTIVATED.
--- NOTE | 2019-04-22 19:14 | NUR ---
ENDORSED PATIENT AT BEDSIDE TO DOCUMENTATION COORDINATOR NURSE. PATIENT IS RESTING ON BED, AROUSABLE TO VOICE. RESPIRATIONS EVEN AND UNLABORED ON RA. FLACC 0. NO SIGNS OF DISTRESS NOTED. PT IS IN STABLE CONDITION. SAFETY MEASURES IN PLACE; BED ALARM ACTIVATED.
--- NOTE | 2019-04-22 19:14 | NUR ---
RECIEVED PT [email or web address] , RESPONDING BY EYE CONTACT WHEN CALLING HIS NAME , MENTALLY DELAYED. IV SITE INTACT AND PATENT , NID - O2 SAT WNL ,, ON G TUBE FEEDING - TOLERATED, 0 RESIDUE . LOW PAWEL SCALE - WILL OFF LOAD PRESSURE AREAS . POC DISCUSSED BUT POOR UNDERSTANDING. ON SAFETY / FALL PRECAUTION PROTOCOL - FALL RISK - BED ALARM ON. PER AM NOD THE PT GOT KAYEXALATE DUE TO HIGH NSERUM POTASSIUM LEVEL - HAS WATERY STOOL - WOF DHN . WILL CONT TO MONITOR.
--- NOTE | 2019-04-22 22:00 | NUR ---
PAGED DR Katarzyna DOWNEY FOR RENEWAL ORDER FOR HERRERA, WAITING FOR CALL BACK.
--- NOTE | 2019-04-22 22:30 | NUR ---
NO CALL BACK FROM DR. DOWNEY - INFORM CHARGE NURSE - THE NURSE CHARGE DAVIN DECIDED TO RENEW THE [id number] ORDER- WILL INFORM NASREEN BURKETT ABOUT THIS MATTER .
--- NOTE | 2019-04-23 | NUR ---
MADE ROUNDS , NO S/S OF ACUTE DISTRESS NOTED. SLEEPY O2 SAT WNL , WILL CONT. TO MONITOR.
[2019-04-23 01:06] VITALS: BP 127/72
--- NOTE | 2019-04-23 02:00 | NUR ---
MADE ROUNDS , SLEEPING - CHEST RISE AND FALL EQUALLY , WILL CONT. TO MONITOR.
--- NOTE | 2019-04-23 04:00 | NUR ---
MADE ROUNDS , NO S/S OF ACUTE DISTRESS NOTED AT THIS TIME , O2 SAT 94%
[2019-04-23] MEDS: aMILoride 5 MG TAB GT SCH ×3 (04:18→20:35)
--- NOTE | 2019-04-23 04:20 | NUR ---
PT. KEEP SAYING MY BACK ,MY BACK - FACIAL GRIMACING WHEN I ASKED HIM IS YOUR BACK HURTING? PT. NOODING HIS HEAD - WILL MEDICATE FOR PAIN. WILL CONT. TO MONITOR.
[2019-04-23] MEDS: ACETAMINOPHEN 325 MG TAB GT PRN (04:28)
[2019-04-23] MEDS: INSULIN LISPRO 100 UNITS/ML VIAL SUBQ SCH ×3 (05:29→17:12)
[2019-04-23] MEDS: DEXT 5% / NACL 0.45% 1,000 ML IV SCH ×4 (05:48→23:13)
[2019-04-23] MEDS: BLOOD GLUCOSE MONITORING 1 DEV DEV FS SCH ×4 (05:48→20:34)
--- NOTE | 2019-04-23 06:22 | NUR ---
MADE ROUNDS , SLEEPING , O2 SAT WNL , V/S - OK - TOO SLEEPY WILL CONT . TO MONITOR . NO DIARRHEA EPISODE FOR THE WHOLE SHIFT.
--- NOTE | 2019-04-23 07:15 | NUR ---
Received report from pm nurse Mona. Pt resting in bed, awake with intermittent impulsive yelling of profanities. Pt in no distress, respirations even & nonlabored in room air, FLACC 0. Right hand IV intact with D5 1/2 NS @ 100ml/hr. GT intact with ongoing Glucerna 1.2 @ 70ml/h. HOB elevated @ 30. Call light within reach.
[2019-04-23 08:00] VITALS: BP 133/65
[2019-04-23] MEDS: APIXABAN 2.5 MG TAB GT SCH ×2 (09:00→20:42)
[2019-04-23] MEDS: VALPROIC ACID 250 MG/5 ML UDC GT SCH ×2 (09:08→20:35)
[2019-04-23] MEDS: QUEtiapine FUMARATE 100 MG TAB GT SCH ×2 (09:09→20:36)
[2019-04-23] MEDS: FAMOTIDINE 20 MG TAB PO SCH ×2 (09:09→20:36)
[2019-04-23] MEDS: OSELTAMIVIR PHOSPHATE 75 MG CAP PO SCH (09:10)
--- NOTE | 2019-04-23 09:45 | NUR ---
Pt resting in bed, awake, calm & cooperative, no signs of distress, respirations even & nonlabored in room air. GT intact with ongoing Glucerna 1.2 @ 70ml/h. Right hand IV intact with ongoing D5 1/2 NS @ 100ml/hr. HOB kept elevated @ 30.
--- NOTE | 2019-04-23 11:38 | NUR ---
04/23/2019 RD FOLLOW UP COMPLETED PLEASE REFER TO NUTRITION PROGRESS NOTE UNDER CARE ACTIVITY FOR ESTIMATED NUTRITION NEEDS. RD RECOMMENDATIONS: 1. CONTINUE CONTINUOUS TUBE FEEDING WITH GLUCERNA 1.2 @ GOAL RATE OF 70 ML/HR. -THIS WILL PROVIDE 2016 KCAL AND 100 GM OF PROTEIN WHICH MEETS 100% OF NUTRIENT NEEDS 2. CONTINUE 200 ML OF FREE WATER FLUSH Q4H. 3. RD TO FOLLOW-UP 2-3 DAYS, HIGH RISK VEE QIU, RD
--- NOTE | 2019-04-23 11:57 | NUR ---
CALLED [facility] AND SPOKE TO DEONDRE , NO ISOLATION BED, SHE SAID TO CALL TOMORROW.
[2019-04-23 16:00] VITALS: BP 123/68
--- NOTE | 2019-04-23 16:43 | NUR ---
Pt resting in bed, awake, no signs of distress. Pt repositioned.
--- NOTE | 2019-04-23 19:05 | NUR ---
Report given to pm nurse Justine. Pt resting in bed, no signs of distress.
--- NOTE | 2019-04-23 19:06 | NUR ---
RECD. RESTING IN BED, AWAKE, ALERT, CONFUSED. SHOUTS OCCASIONALLY, MUMBLES. RESPIRATION EVEN AND UNLABORED. 02 SAT - 94% ON ROOM AIR. OCCASIONALLY WITH UNPRODUCTIVE COUGH. IV OF D51/2 NS AT 100 ML/HR INFUSING, RIGHT HAND G20. ON GT FEEDING OF JEVITY 1.2 AT 70 ML/HR. SAFETY MEASURES ENFORCED. BED IN THE LOWEST POSITION. SIDE RAILS WITH PADS. BED ON ALARM. NO APPEARANCE OF PAIN NOTED, FLACC -0.
--- NOTE | 2019-04-23 20:35 | NUR ---
DUE PO MEDICATIONS GIVEN VIA GT. TOLERATED WELL.
--- NOTE | 2019-04-23 20:45 | NUR ---
AGITATED, SHOUTING. CLEANSED AND REPOSITIONED WITH PILLOWS FOR COMFORT. CALM DOWN.
--- NOTE | 2019-04-23 22:30 | NUR ---
SLEEPING COMFORTABLY IN BED.
--- NOTE | 2019-04-23 23:14 | NUR ---
Patient's Plan of Care was discussed and reviewed with JIG WORKER: ANUSHA ASHTON
[2019-04-24] VITALS: BP 112/70
[2019-04-24] MEDS: INSULIN LISPRO 100 UNITS/ML VIAL SUBQ SCH ×4 (00:22→19:03)
--- NOTE | 2019-04-24 00:30 | NUR ---
OCCASIONALLY WITH UNPRODUCTIVE COUGHING. HEAD OF BED MAINTAINED AT 40 DEGREES. REPOSITIONED FOR COMFORT.
--- NOTE | 2019-04-24 02:30 | NUR ---
STILL SLEEPING COMFORTABLY IN BED.
--- NOTE | 2019-04-24 04:30 | NUR ---
CLEANSED BY MACHINE SHOP APPRENTICE. NO AGITATION NOTED. REPOSITIONED WITH PILLOWS FOR COMFORT.
[2019-04-24] MEDS: aMILoride 5 MG TAB GT SCH ×3 (06:22→20:30)
[2019-04-24] MEDS: BLOOD GLUCOSE MONITORING 1 DEV DEV FS SCH ×4 (06:26→20:26)
--- NOTE | 2019-04-24 07:15 | NUR ---
ENDORSED TO AM SHIFT NURSE IN STABLE CONDITION .
--- NOTE | 2019-04-24 07:16 | NUR ---
RECEIVED REPORT FROM CHIEF LIBRARIAN BRANCH OR DEPARTMENT NURSE ANUSHA FOR CONTINUITY OF CARE. PT IN STABLE CONDITION. RESPIRATIONS EVEN AND UNLABORED, ROOM AIR. IV IN TACT AND PATENT. SAFETY MEASURES IN PLACE. BED IN LOW POSITION. BED ALARM ON. CALL LIGHT AT BEDSIDE. WILL CONTINUE TO MONITOR.
[2019-04-24 08:00] VITALS: BP 104/64
[2019-04-24] MEDS: APIXABAN 2.5 MG TAB GT SCH ×2 (09:00→20:31)
--- NOTE | 2019-04-24 09:00 | NUR ---
HELD ELIQUIS PLATELETS 108 ON APR 21, 2019
--- NOTE | 2019-04-24 09:01 | NUR ---
CHANGED LINEN AND PT AT THIS TIME FOR BED BATH. PT TOLERATED WELL. BED IN LOW POSITION. BED ALARM ON. CALL LIGHT AT BEDSIDE. WILL CONTINUE TO MONITOR.
[2019-04-24] MEDS: OSELTAMIVIR PHOSPHATE 75 MG CAP PO SCH (09:44)
[2019-04-24] MEDS: FAMOTIDINE 20 MG TAB PO SCH ×2 (09:45→20:27)
[2019-04-24] MEDS: VALPROIC ACID 250 MG/5 ML UDC GT SCH ×2 (09:45→20:29)
[2019-04-24] MEDS: QUEtiapine FUMARATE 100 MG TAB GT SCH ×2 (09:56→20:27)
--- NOTE | 2019-04-24 11:33 | NUR ---
PT SLEEPING AT THIS TIME. RESPIRATIONS EVEN AND UNLABORED. BED IN LOW POSITION. BED ALARM ON. CALL LIGHT AT BEDSIDE. WILL CONTINUE TO MONITOR.
[2019-04-24] MEDS: DEXT 5% / NACL 0.45% 1,000 ML IV SCH ×2 (12:29→22:30)
--- NOTE | 2019-04-24 12:45 | NUR ---
CONTACTED [facility] ), SPOKE WITH GURPREET, STATED THEY DO NOT HAVE AN ISOLATION BED AVAILABLE FOR TODAY. PER GURPREET, WE CAN CALL BACK TOMORROW AND CHECK WITH [facility] FOR ISO ROOM AVAILABILITY. FLORES ACOSTA ASSIGNED MADE AWARE.
--- NOTE | 2019-04-24 13:58 | NUR ---
GAVE ORDERED DUE MEDICATIONS AT THIS TIME. PT TOLERATED WELL. BED IN LOW POSITION. BED ALARM ON. CALL LIGHT AT BEDSIDE. WILL CONTINUE TO MONITOR.
--- NOTE | 2019-04-24 15:00 | NUR ---
DR. DOWNEY NOTIFIED THAT THERE IS NO AVAILABLE [place] [facility] [place].
[2019-04-24] MEDS ORDERED: ROC1PM IV (15:09)
--- NOTE | 2019-04-24 15:45 | NUR ---
PT LYING IN BED QUIETLY. RESPIRATIONS EVEN AND UNLABORED. BED IN LOW POSITION. BED ALARM ON. CALL LIGHT AT BEDSIDE. WILL CONTINUE TO MONITOR.
[2019-04-24 16:00] VITALS: BP 110/90
--- NOTE | 2019-04-24 17:10 | NUR ---
PT LYING IN BED WATCHING TV AT THIS TIME. RESPIRATIONS EVEN AND UNLABORED. BED IN LOW POSITION. BED ALARM ON. CALL LIGHT AT BEDSIDE. WILL CONTINUE TO MONITOR.
--- NOTE | 2019-04-24 19:15 | NUR ---
GAVE REPORT TO CHIP MUCKER NURSE ANUSHA FOR CONTINUITY OF CARE. PT IN STABLE CONDITION.
--- NOTE | 2019-04-24 19:16 | NUR ---
RECD. RESTING IN BED, AWAKE, ALERT, CONFUSED. RESPIRATION EVEN AND UNLABORED. OCCASIONALLY SHOUTS, MUMBLES. IV OF D51/2 NS AT 100 ML/HR INFUSING, RIGHT HAND G20. HOB ELEVATED 35 DEGREES. GT FEEDING OF GLUCERNA 1.2 INFUSING AT 70 ML/HR, GT SITE WITH DRESSING, DRY AND INTACT. INCONTINENT AND BEDBOUND. REORIENTED TO HOSPITAL SETTING. PLAN OF CARE DISCUSSED. UNABLE TO COMPREHEND. NO APPEARANCE OF PAIN NOTED, FLACC -0.
--- NOTE | 2019-04-24 20:30 | NUR ---
ELIQUIS NOT GIVEN, LOW PLATELET.
--- NOTE | 2019-04-24 22:25 | NUR ---
INFORMED DR. Liana DOWNEY, PATIENT PLATELET COUNT WAS LAST 04/22, PATIENT HAS BEEN REFUSING AM BLOOD DRAW.
--- NOTE | 2019-04-24 23:58 | NUR ---
Patient's Plan of Care was discussed and reviewed with WIND TURBINE ERECTOR: POLI
[2019-04-25] VITALS: BP 96/68
--- NOTE | 2019-04-25 | NUR ---
SLEEPING COMFORTABLY IN BED.
--- NOTE | 2019-04-25 02:00 | NUR ---
AWAKE, AGITATED. CLEANSED AND MADE COMFORTABLE IN BED WITH PILLOWS. WENT BACK TO SLEEP.
--- NOTE | 2019-04-25 04:00 | NUR ---
STILL SLEEPING COMFORTABLY IN BED.
--- NOTE | 2019-04-25 04:30 | NUR ---
RT WILL NOT BE ABLE TO INDUCE SPUTUM FOR TEST, THEY DO NOT HAVE HYPERTONIC SALINE NEEDED FOR INDUCING, PHARMACY HAS TO SEND TO THEM.
[2019-04-25] MEDS: aMILoride 5 MG TAB GT SCH ×2 (06:11→12:27)
[2019-04-25] MEDS: INSULIN LISPRO 100 UNITS/ML VIAL SUBQ SCH ×4 (06:21→18:00)
[2019-04-25] MEDS: BLOOD GLUCOSE MONITORING 1 DEV DEV FS SCH ×3 (06:35→16:58)
[2019-04-25 06:48] LABS: ANION GAP 6.5 (8-16); CARBON DIOXIDE 31.3 mmol/L (21-32); CREATININE 0.6 mg/dL (0.6-1.3); POTASSIUM 4.8 mmol/L (3.5-5.1)
[2019-04-25 07:03] LABS: BASOPHILS % (AUTO) 0.3 % (0.0-2.0); EOSINOPHILS # (AUTO) 0.2 K/uL (0-0.4); EOSINOPHILS % (AUTO) 3.3 % (0.0-4.0); HEMATOCRIT 34.7 % (36-52); HEMOGLOBIN 11.8 g/dL (12.0-18.0); LYMPHOCYTES # (AUTO) 2.3 K/uL (2.0-11.5); LYMPHOCYTES % (AUTO) 38.6 % (20.5-51.1); MEAN CORPUSCULAR HEMOGLOBIN 32 pg (27-31); MEAN CORPUSCULAR HGB CONC 34 g/dL (33-37); MEAN CORPUSCULAR VOLUME 93.8 fL (80-94); MONOCYTES # (AUTO) 0.9 K/uL (0.8-1.0); MONOCYTES % (AUTO) 15.8 % (1.7-9.3); NEUTROPHILS # (AUTO) 2.5 K/uL (1.8-7.7); PLATELET COUNT (AUTO) 171 K/uL (140-450); RED CELL DISTRIBUTION WIDTH 15.3 % (11.6-13.7)
--- NOTE | 2019-04-25 07:15 | NUR ---
RECEIVED REPORT FROM LGSW NURSE FOR CONTINUATION OF CARE.
--- NOTE | 2019-04-25 07:15 | NUR ---
CONDITION REMAIN STABLE. ENDORSED TO AM SHIFT NURSE FOR CONTINUITY OF CARE.
[2019-04-25] MEDS: DEXT 5% / NACL 0.45% 1,000 ML IV SCH ×2 (07:47→18:30)
[2019-04-25 08:00] VITALS: BP 104/58
[2019-04-25] MEDS: APIXABAN 2.5 MG TAB GT SCH (08:28)
[2019-04-25] MEDS: FAMOTIDINE 20 MG TAB PO SCH (08:32)
[2019-04-25] MEDS: OSELTAMIVIR PHOSPHATE 75 MG CAP PO SCH (08:32)
[2019-04-25] MEDS: VALPROIC ACID 250 MG/5 ML UDC GT SCH (08:33)
[2019-04-25] MEDS: QUEtiapine FUMARATE 100 MG TAB GT SCH (08:33)
--- NOTE | 2019-04-25 09:45 | NUR ---
PATIENT IS AGITATED, FLAILING ARMS AROUND AND PREVENTING ADMINISTRATION OF MEDICATIONS THROUGH G-TUBES BY HITTING NURSES ARM AND MOVING AWAY WHEN ATTEMPTING TO ADMINISTER MEDICATIONS. PATIENT YELLING AT STAFF, DR. MARTA DOWNEY CALLED AND SUGGESTED SOFT WRIST RESTRAINTS IF AGITATION PERSISTS. BED IS IN LOW POSITION, GLUCERNA 1.2 FEEDING RUNNING AT 70 ML/HR. BED IS IN LOW POSITION, CALL LIGHT ON AND WITHIN REACH. WILL CONTINUE TO MONITOR.
--- NOTE | 2019-04-25 10:28 | NUR ---
PATIENT WAS ABLE TO REMAIN CALM WHILE ADMINISTERING MEDICATIONS THROUGH GTUBE. BEDBATH GIVEN, TOLERATED WELL. WILL CONTINUE TO MONITOR.
--- NOTE | 2019-04-25 11:50 | NUR ---
PATIENT IS RESTING IN BED, EYES CLOSED, OBSERVED CHEST RISE AND FALL. NO CONCERNS AT THIS TIME. GTUBE FEEDING RUNNING, IV FLUID RUNNING. TURNED TO OFFLOAD PRESSURE FROM BONY PROMINENCES. WILL CONTINUE TO MONITOR.
--- NOTE | 2019-04-25 13:19 | NUR ---
PATIENT IS RESTING IN BED, MEDICATIONS TOLERATED WELL THROUGH GTUBE. PATIENT REMAINS AAOX1/2. SKIN INTACT. REMAINS ON BOTH CONTACT AND DROPLET PRECAUTIONS. WILL CONTINUE TO MONITOR.
--- NOTE | 2019-04-25 15:48 | NUR ---
GTUBE FEEDING EMPTY, REPLACED WITH A NEW GLUCERNA 1.2 FULL RUNNING AT 70 ML/HR. PATIENT TOLERATING WELL. PATIENT IS RESTING IN BED, EYES CLOSED, OBSERVED CHEST RISE AND FALL. WILL CONTINUE TO MONITOR.
[2019-04-25 16:00] VITALS: BP 105/62
--- NOTE | 2019-04-25 18:45 | NUR ---
DISCHARGED FROM [facility] IN STABLE CONDITION, EN ROUTE TO [facility]. REPORT GIVEN TO JASON. IV REMOVED, GTUBE FEEDING REMOVED, TOLERATED WELL. CHANGED INTO PINK APPROPRIATE GOWN AND LINENS. UNABLE TO SIGN DISCHARGE PAPERWORK DUE TO MENTATION, EDUCATED STAFF MEMBERS WHO CAME TO CORE SHAPER SIDES REGARDING CONTACT PRECAUTION.
== END 2019-04-25 18:40 | DRG 871 ==
LOC: MED 22:50 → MTU 04-18 01:38
PROVIDERS: ADMIT Preventive Medicine Preventive Medicine/Occupational Environmental Medicine; ATTEND Preventive Medicine Preventive Medicine/Occupational Environmental Medicine
DX: A41.9 Sepsis, unspecified organism (principal); J96.00 Acute respiratory failure, unspecified whether with hypoxia or hypercapnia; E87.1 Hypo-osmolality and hyponatremia; N39.0 Urinary tract infection, site not specified; J98.11 Atelectasis; B96.89 Other specified bacterial agents as the cause of diseases classified elsewhere; E87.5 Hyperkalemia; J10.1 Influenza due to other identified influenza virus with other respiratory manifestations; I25.2 Old myocardial infarction; F79 Unspecified intellectual disabilities; F03.90 Unspecified dementia, unspecified severity, without behavioral disturbance, psychotic disturbance, mood disturbance, and anxiety; E88.09 Other disorders of plasma-protein metabolism, not elsewhere classified; D69.6 Thrombocytopenia, unspecified; R53.81 Other malaise
CPT/HCPCS: 36415; 36600; 71045; 80048; 80053; 81001; 82550; 82553; 82803; 82948; 83605; 84484; 85025; 85610; 85651; 85730; 86140; 87040; 87081; 87086; 87186; 87804; 93005; 96360; 96361; 99291; J0696; J1815; J7030; J7060; J7120; Q0092

== ENCOUNTER 2020-05-01 18:33 | Inpatient (IN) | payer OTHER, MEDICAID, SELFPAY ==
[~2020-05-01] VITALS: Ht 172.7 cm; Wt 59.4 kg
[~2020-05-01 18:33] MED LIST: APIX2.5 GT; CARB100S PO; FAMO40PD4 PO; HUM SUBQ; MID5 GT; QUET300T1 GT; VALP250S5 GT; [UNRECOGNIZED DRUG - CODE] GT
--- NOTE | 2020-05-01 18:34 | NUR ---
BIBA BLS TAKEN TO BED 4
[2020-05-01 18:38] VITALS: BP 138/88
--- NOTE | 2020-05-01 18:44 | NUR ---
BIB FROM [facility] C/O PULLED G TUBEX TODAY.NEUROLOGICALLY AT BASELINE.[facility],PT GOT 2ND COVID VACCINE TODAY. PMH:DM, HYPERLIPIDEMIA,SCHIZOPHRENIA, ID, CEREBRALPALSY, BIPOLA DISORDER
--- NOTE | 2020-05-01 18:44 | NUR ---
Note paulaone in EDM - 05/01/20 at 1919 by MED1 BIB FROM [facility] C/O PULLED G TUBEX TODAY.NEUROLOGICALLY AT BASELINE.[facility],PT GOT 2ND COVID VACCINE TODAY. PMH:DM, HYPERLIPIDEMIA,SCHIZOPHRENIA, ID, CEREBRALPALSY, BIPOLA DISORDER
--- NOTE | 2020-05-01 18:44 | NUR ---
Note chelsea in EDM - 05/01/20 at 1854 by MED1 CHRIS FROM [facility] C/O PULLED G TUBEX TODAY.NEUROLOGICALLY AT BASELINE.[facility],PT GOT 2ND COVID VACCINE TODAY. PMH:SEIZURE
--- NOTE | 2020-05-01 19:03 | NUR ---
EKG AT BED SIDE.
--- NOTE | 2020-05-01 19:03 | NUR ---
LAB AT BEDSIDE.
--- NOTE | 2020-05-01 19:18 | NUR ---
Pt report given to DARA ACOSTA. Transfer of care at this time.
--- NOTE | 2020-05-01 19:19 | NUR ---
Note paulaone in EDM - 05/01/20 at 1920 by MEDCS1 BIB FROM [facility] C/O PULLED G TUBEX TODAY.NEUROLOGICALLY AT BASELINE.[facility],PT GOT 2ND COVID VACCINE TODAY. PMH:DM, HYPERLIPIDEMIA,SCHIZOPHRENIA, ID, CEREBRALPALSY, BIPOLA DISORDER
--- NOTE | 2020-05-01 19:19 | NUR ---
BIB FROM [facility] C/O PULLED G TUBEX TODAY.NEUROLOGICALLY AT BASELINE.[facility],PT GOT 2ND COVID VACCINE TODAY. PMH:DM, HYPERLIPIDEMIA,SCHIZOPHRENIA, ID, CEREBRALPALSY, BIPOLA DISORDER
--- NOTE | 2020-05-01 19:20 | NUR ---
REPORT GIVEN FROM ÁNGELA.
[2020-05-01 19:22] LABS: BASOPHILS # (AUTO) 0.2 K/uL (0.00-0.22); BASOPHILS % (AUTO) 4.7 % (0.0-2.0); EOSINOPHILS # (AUTO) 0.1 K/uL (0-0.4); EOSINOPHILS % (AUTO) 1.8 % (0.0-4.0); HEMATOCRIT 38.1 % (36-52); HEMOGLOBIN 12.4 g/dL (12.0-18.0); LYMPHOCYTES # (AUTO) 0.8 K/uL (2.0-11.5); LYMPHOCYTES % (AUTO) 15.9 % (20.5-51.1); MEAN CORPUSCULAR HEMOGLOBIN 33 pg (27-31); MEAN CORPUSCULAR HGB CONC 33 g/dL (33-37); MEAN CORPUSCULAR VOLUME 99.9 fL (80-94); MONOCYTES # (AUTO) 0.4 K/uL (0.8-1.0); MONOCYTES % (AUTO) 8.1 % (1.7-9.3); NEUTROPHILS # (AUTO) 3.6 K/uL (1.8-7.7); NEUTROPHILS % (AUTO) 69.5 % (42.2-75.2); PLATELET COUNT (AUTO) 190 K/uL (140-450); RED BLOOD CELL COUNT(AUTO) 3.82 MIL/uL (4.20-6.10); RED CELL DISTRIBUTION WIDTH 15.3 % (11.6-13.7); WHITE BLOOD COUNT (AUTO) 5.2 K/uL (4.8-10.8)
[2020-05-01] MEDS ORDERED: HYDROcodone/APAP 7.5/325 MG 1 TAB PO PRN (19:25)
[2020-05-01] MEDS ORDERED: DOCUSATE 100 MG/10 ML UDC GT PRN (19:25)
--- NOTE | 2020-05-01 19:26 | NUR ---
FAUSTO SAAVEDRA SWABBED AND SENT WITH LAB.
--- NOTE | 2020-05-01 19:35 | NUR ---
PT UNABLE TO GIVE URINE AT THIS TIME. ERMD NOTIFIED. ERMD STATED WE DO NOT REQUIRE URINE AT THIS TIME.
[2020-05-01 19:41] LABS: ANION GAP 10.1 (8-16); CARBON DIOXIDE 30.6 mmol/L (21-32); CREATININE 0.6 mg/dL (0.6-1.3); POTASSIUM 4.7 mmol/L (3.5-5.1); TOTAL BILIRUBIN 0.3 mg/dL (0.0-1.0)
--- NOTE | 2020-05-01 21:12 | NUR ---
Patient will be admitted to care of JELANI GLOVER. Admited to TELEMETRY. Will go to room 108A. Belongings list completed. Report to JAMILA ACOSTA.
[2020-05-01] MEDS ORDERED: INSULIN LISPRO SLIDING SCALE 100 UNITS/ML VIAL SUBQ PRN (22:10)
[2020-05-01] MEDS ORDERED: POTASSIUM CHLORIDE 10 MEQ TABER PO PRN (22:10)
[2020-05-01] MEDS ORDERED: DEXTROSE 50% 50 ML SYR IVP PRN (22:10)
[2020-05-01 22:40] VITALS: BP 133/85
--- NOTE | 2020-05-01 22:40 | NUR ---
Admitted from ER TO TELEMETRY UNIT, with chief complaint of G-TUBE MALFUNCTION, 69 y/o ,Male, Cooperative, AWAKE, A/OX1, WITH INTELLECTUAL DISABILITY AND HISTORY OF CEREBRAL PALSY. ABLE TO ANSWER WITH YES OR NO, SAY SHORT PHRASES, SOMETIMES DOES NOT RESPOND TO QUESTIONS. CAME FROM [facility]ARD AND CARE, [facility]. PATIENT PULLED OUT G-TUBE. RESPIRATION EVEN AND UNLABORED. ABDOMEN SOFT NON TENDER, G-T SIDE DRY AND CLEAN. PATIENT IS BEDBOUND/WHEELCHAIR BOUND, INCONTINENT. HEAD TO TOE ASSESSMENT DONE WITH CHARGE NURSE VENKAT, SKIN IS INTACT. ON WOUND CARE BED. NO APPEARANCE OF PAIN NOTED 0/10. SINUS TACHYCARDIA ON TELEMONITORING, HR -101.Doriented to call light, bed, phone,television, bathroom, smoking policy,visiting hours, procedures, ID bracelet on. Belongings list checked.
[2020-05-01 22:49] LABS: PROTHROMBIN TIME 10.9 secs (10.8-13.4)
[2020-05-01 23:00] LABS: CHOL/HDL RATIO 2.6 (1-4.5); FREE T4 (FREE THYROXINE) 0.68 ng/dL (0.76-1.46); PHOSPHORUS 2.9 mg/dL (2.5-4.9); THYROID STIMULATING HORMONE 1.07 uIU/mL (0.34-3.74)
--- NOTE | 2020-05-02 | NUR ---
STILL AWAKE IN BED, MUMBLING SOME PHRASES.
--- NOTE | 2020-05-02 00:58 | NUR ---
Patient's Plan of Care was discussed and reviewed with GEL COAT SPRAYER: ANUSHA ASHTON.
--- NOTE | 2020-05-02 03:00 | NUR ---
SLEEPING COMFORTABLY IN BED.
[2020-05-02 04:00] VITALS: BP 127/78
[2020-05-02] MEDS ORDERED: CIT AC GT SCH (05:00)
[2020-05-02] MEDS ORDERED: POTASSIUM BICARBONATE GT SCH (05:00)
[2020-05-02] MEDS: aMILoride 5 MG TAB GT SCH ×3 (05:00→20:23)
--- NOTE | 2020-05-02 06:00 | NUR ---
AWAKE, IN BED. WHEN INQUIRED HOW HE IS, STATED "FINE". REORIENTED TO HOSPITAL SETTING.
[2020-05-02 06:58] LABS: BASOPHILS # (AUTO) 0.1 K/uL (0.00-0.22); EOSINOPHILS # (AUTO) 0.1 K/uL (0-0.4); EOSINOPHILS % (AUTO) 2.3 % (0.0-4.0); HEMATOCRIT 39.7 % (36-52); LYMPHOCYTES # (AUTO) 1.8 K/uL (2.0-11.5); LYMPHOCYTES % (AUTO) 31.7 % (20.5-51.1); MEAN CORPUSCULAR HEMOGLOBIN 33 pg (27-31); MEAN CORPUSCULAR HGB CONC 33 g/dL (33-37); MEAN CORPUSCULAR VOLUME 100.9 fL (80-94); MONOCYTES # (AUTO) 1.1 K/uL (0.8-1.0); MONOCYTES % (AUTO) 18.6 % (1.7-9.3); NEUTROPHILS # (AUTO) 2.6 K/uL (1.8-7.7); NEUTROPHILS % (AUTO) 46.4 % (42.2-75.2); PLATELET COUNT (AUTO) 194 K/uL (140-450); RED BLOOD CELL COUNT(AUTO) 3.94 MIL/uL (4.20-6.10); RED CELL DISTRIBUTION WIDTH 15.5 % (11.6-13.7); WHITE BLOOD COUNT (AUTO) 5.7 K/uL (4.8-10.8)
[2020-05-02] MEDS: BLOOD GLUCOSE MONITORING 1 DEV DEV FS SCH ×4 (07:06→20:44)
--- NOTE | 2020-05-02 07:06 | NUR ---
BLOOD SUGAR CHECKED - 104, NO COVERAGE.
--- NOTE | 2020-05-02 07:14 | NUR ---
ENDORSED TO AM SHIFT NURSE FOR CONTINUITY OF CARE.
--- NOTE | 2020-05-02 07:15 | NUR ---
REC'D REPORT FROM BATTERY PARTS ASSEMBLER NURSE, PT ON RA. R. WRIST 22G. PATENT, A/OX1, ON TELEMONITOR CALL LIGHT WITHIN REACH. BED LOWEST POSITION. PT STABLE WILL CONTINUE TO MONITOR
[2020-05-02] MEDS ORDERED: ONDANSETRON 4 MG/2 ML VIAL IVP PRN (07:21)
[2020-05-02 07:22] LABS: ANION GAP 9.7 (8-16); CARBON DIOXIDE 31.1 mmol/L (21-32); CREATININE 0.5 mg/dL (0.6-1.3); POTASSIUM 3.8 mmol/L (3.5-5.1)
[2020-05-02 08:00] VITALS: BP 153/77
--- NOTE | 2020-05-02 08:27 | NUR ---
PATIENT HAS BEEN SCREENED AND CATEGORIZED HIGH NUTRITION RISK. PATIENT WILL BE SEEN WITHIN 1-2 DAYS OF ADMISSION. 05/02/20-05/03/[address]
[2020-05-02] MEDS: QUEtiapine FUMARATE 100 MG TAB GT SCH ×2 (09:00→20:24)
[2020-05-02] MEDS: APIXABAN 2.5 MG TAB GT SCH ×2 (09:00→20:47)
[2020-05-02] MEDS: VALPROIC ACID 250 MG/5 ML UDC GT SCH ×2 (09:00→20:22)
[2020-05-02] MEDS: FAMOTIDINE 20 MG TAB PO SCH ×2 (09:00→20:25)
--- NOTE | 2020-05-02 10:02 | NUR ---
PT STABLE, PHYSICIAN AT BEDSIDE, CALL LIGHT WITHIN REACH, NO SIGN OF DISTRESS
--- NOTE | 2020-05-02 11:48 | NUR ---
DC PLANNIN YRS OLD MALE PATIENT WAS ADMITTED FROM [facility] WITH A DX OF G-TUBE MALFUNCTION. PT HAS A HX OF MENTALLY CHALLENGE, SCHIZOPHRENIA, HTN, DEMENTIA, CVA, G-TUBE, UTI AND DM. ORDERED KUB, US OF ABDOMEN AND CXRAY, AWAITING FOR THE RESULT. RAPID COVID TEST NEGATIVE. CONSULTED WITH GI DR LONDONO. DC PLAN TO GO BACK TO [facility] WHEN STABLE CM TO FOLLOW. Addendum: 05/04/20 at 1552 by Lauren Bartholomew RN DC PLANNING: AWAITING FOR DC ORDER FOR TO GO BACK TO [facility]. PER DR VEENA BOCANEGRA TO DC BACK TO [facility] CM TO FOLLOW. CM TO FOLLOW Addendum: 05/04/20 at 1558 by aTye Norman SS MARY ALICE CONTACTED [facility] [phone] AND REQUESTED TO SPEAK TO АНДРЕЙ REGARDING PATIENT'S DISCHARGE. MARISA FROM [facility] PROVIDED JASON MELCHOR'S PHONE NUMBER, MANIFOLD BUILDER OF NIA, . MARY ALICE CONTACTED JASON AND INFORMED HER OF PATIENT'S DISCHARGE. JASON STATED THAT HER DRIVERS ARE UNAVAILABLE AT THIS TIME. JASON WILL ATTEMPT TO CALL [place] AND ARRANGE TRANSPORT. JASON STATED SHE WILL CALL UNIT IF SHE IS ABLE TO WITH TRANSPORT TIME. MARY ALICE PROVIDED UNIT'S PHONE NUMBER. NO FURTHER NEEDS IDENTIFIED.
[2020-05-02 12:00] VITALS: BP 135/84
[2020-05-02] MEDS ORDERED: ACETAMINOPHEN 325 MG TAB PO PRN (12:00)
--- NOTE | 2020-05-02 12:35 | NUR ---
SOCIAL WORK NOTE: Patient's Orientation Unable To Assess Information Provided By АНДРЕЙ - COMPRESSOR OPERATOR OF [facility] Comments SW WAS UNABLE TO MEET PATIENT AT BEDSIDE. MARY ALICE COMPLETED ASSESSMENT WITH COMPRESSOR OPERATOR OF [facility] ICF. PER АНДРЕЙ, PATIENT'S FAMILY IS INVOLVED WITH MEDICAL DECISION MAKING. Export Freight Specialist, Realtionship and Phone Number ANY MONET BROTHER [phone] SARIKA MONET NEPHEW [phone] Healthcare Power of Insulation Worker Interior Surface No Does Patient Have a POLST No Identifying Problems No Social Work Triggers Is A Social Work Consult Needed No Mandate Report Filed No Explanation Of Identifying Problems PATIENT IS A 69-YEAR-OLD MALE ADMITTED FOR G TUBE MALFUNCTION. PATIENT HAS PMHX OF DEMENTIA, SEIZURES, PNEUMONIA, INTELLECTUAL DISABILITY AND CEREBRAL PALSY. PATIENT HAS NO CONSERVATOR. MARY ALICE CONTACTED [facility] WORKER YENNY RENO TO INFORM HER OF PATIENT'S HOSPITALIZATION. Admitted From Home Pre-Admission Level Of Functioning Status Total Care Level Of Functioning Comment PER АНДРЕЙ, PATIENT REQUIRES TOTAL ASSISTANCE WITH ALL ADLS. Prior Resources/Services Used In Last 12 Months [facility] Prior Resources/Service Comments YENNY RENO - [phone] Prior DME Wheelchair Dialysis Comments N/A Living Situation Asst'd Living/Board &Care Other Living Situation/Comment PATIENT IS A RESIDENT OF [facility] - ICF Patient Had Caregiver No Home Support No Caregiver Issues Financial Issues No Known Financial Issue Referral To The Financial Counselor Needed No Factors/Needs No D/C Needs Identified Pt/Rep Participated In Discharge Plan Yes Patient/Family Agress With Discharge Plan Yes Discharge Plan Comments TENTATIVE DISCHARGE PLAN IS FOR PATIENT TO RETURN HOME. DC Plan Status Initiated
--- NOTE | 2020-05-02 13:40 | NUR ---
ADMINISTERED MEDICATIONS PER MD ORDER. IV CATHETER PATENT. MEDICATION MOA AND SIDE EFFECTS EXPLAINED TO PATIENT WHO COULD NOT VERBALIZE UNDERSTANDING. WILL CONTINUE TO MONITOR
--- NOTE | 2020-05-02 13:43 | NUR ---
05/02/20 RD INITIAL ASSESSMENT COMPLETED PLEASE REFER TO NUTRITION ASSESSMENT UNDER CARE ACTIVITY FOR ESTIMATED NUTRITIONAL NEEDS. 1. RECOMMEND GLUCERNA 1.2 @ 60 ML/HR -PROVIDE 1728 KCAL AND 86 GM OF PROTEIN, 2. RECOMMEND FREE WATER FLUSH OF [address] TO FOLLOW-UP 2-3 DAYS, HIGH RISK SARA WING, RD
[2020-05-02] MEDS: DEXT 5% /NACL 0.9% 1,000 ML IV SCH ×2 (14:50)
--- NOTE | 2020-05-02 15:15 | NUR ---
PLACED CONDOM CATHETER ON PT TO ATTEMPT AND COLLECT URINE FOR URINALYSIS. LARGE SIZE WITH COLLECTION BAG. PT TOLERATED PROCEDURE WELL.
[2020-05-02 16:00] VITALS: BP 138/84
--- NOTE | 2020-05-02 16:40 | NUR ---
CHECKED ON URINE COLLECTION BAG FOR UA. CONDOM CATHETER CAME LOOSE AND NO URINE WAS ABLE TO BE COLLECTED. ATTEMPTED TO REPLACE CONDOM CATHETER, PT BECAME AGITATED PUSHING MY HAND AWAY TO NOT ATTEMPT AGAIN, ATTEMPT AGAIN AT LATER TIME.
--- NOTE | 2020-05-02 19:00 | NUR ---
PATIENT RECEIVED IN BED WITH G-TUBE MALFUNCTION, AWAKE, A/OX1, WITH INTELLECTUAL DISABILITY AND HISTORY OF CEREBRAL PALSY. ABLE TO ANSWER WITH YES OR NO. CAME FROM BOARD AND CARE, PATIENT HAS G-TUBE OUT OF PLACEMENT. RESPIRATION EVEN AND UNLABORED. ABDOMEN SOFT NON TENDER, G-T SIDE DRY AND CLEAN. PATIENT IS BEDBOUND/WHEELCHAIR BOUND, INCONTINENT. EPIGASTRIC STOMA NOTED. SKIN INTACT AND DRY. CONTINUED ON WOUND CARE BED. NO APPEARANCE OF PAIN NOTED 0/10. ST NOTED HR 98. REINFORCED FALL AND SAFETY PRECAUTIONARY MEASURES. DISORIENTED TO FALL AND SAFETY PRECAUTIONARY MEASURE, MEDICAL CONDITION AND PLAN OF CARE. MAXIMAL CARE RENDERED. NO ACUTE DISTRESS NOTED.
--- NOTE | 2020-05-02 19:34 | NUR ---
ENDORSED PT FOR CONTINUITY OF CARE, PT STABLE, RA. BED LOWEST POSITION, CALL LIGHT WITHIN REACH.
[2020-05-02 20:00] VITALS: BP 142/80
[2020-05-03] VITALS: BP 136/78
--- NOTE | 2020-05-03 | NUR ---
PATIENT SLEEPING DURING ROUNDING. MAXIMAL CARE RENDERED. TURNED AND REPOSITIONED Q2 HOUR PRN. BED IN LOWER POSITION. NO NAUSEA VOMITING. G TUBE PATENT AND IN PLACE. URINARY INCONTINENCE. MAXIMAL CARE RENDERED. PATIENT CLEANED AND REPOSITIONED. REDIRECTED TO FALL AND SAFETY PRECAUTIONARY MEASURES. NO ACUTE DISTRESS NOTED.
--- NOTE | 2020-05-03 | NUR ---
PATIENT REFUSED CONDOM CATHETER X 3. RN UNABLE TO REDIRECT PATIENT FOR COMPLIANCE OF CARE. PENDING UA SPECIMEN. URINARY INCONTINENCE X 1. CHECKED ON URINE COLLECTION BAG FOR UA. CONDOM CATHETER CAME LOOSE AND NO URINE WAS ABLE TO BE COLLECTED. ATTEMPTED TO REPLACE CONDOM CATHETER, PT BECAME AGITATED PUSHING MY HAND AWAY TO NOT ATTEMPT AGAIN, ATTEMPT AGAIN AT LATER TIME. PATIENT EDUCATED TO NEED FOR COMPLIANCY AND ONGOING MEDICAL CARE. WILL CONTINUE TO NEED FOR COMPLIANCY.
[2020-05-03 04:00] VITALS: BP 132/72
[2020-05-03] MEDS: aMILoride 5 MG TAB GT SCH ×3 (05:08→21:12)
[2020-05-03] MEDS: DEXT 5% /NACL 0.9% 1,000 ML IV SCH (05:10)
--- NOTE | 2020-05-03 06:00 | NUR ---
PATIENT SLEEPING DURING ROUNDING. REMAINS NPO. MAXIMAL CARE RENDERED. TURNED AND REPOSITIONED Q2 HOUR PRN. BED IN LOWER POSITION. PATIENT SCHEDULED FOR G TUBE REPLACEMENT WITH DR LIRA THIS AM. PATIENT CONTINUE TO REFUSE CONDOM CATH. PATIENT CLEANED AND REPOSITIONED. REDIRECTED TO FALL AND SAFETY PRECAUTIONARY MEASURES. NO ACUTE DISTRESS NOTED.
[2020-05-03 06:32] LABS: ANION GAP 9.6 (8-16); CARBON DIOXIDE 28.7 mmol/L (21-32); CREATININE 0.6 mg/dL (0.6-1.3); POTASSIUM 4.3 mmol/L (3.5-5.1)
[2020-05-03 06:45] LABS: BASOPHILS # (AUTO) 0.1 K/uL (0.00-0.22); BASOPHILS % (AUTO) 1.3 % (0.0-2.0); EOSINOPHILS # (AUTO) 0.1 K/uL (0-0.4); HEMATOCRIT 40.6 % (36-52); HEMOGLOBIN 13.3 g/dL (12.0-18.0); LYMPHOCYTES # (AUTO) 1.7 K/uL (2.0-11.5); LYMPHOCYTES % (AUTO) 26.8 % (20.5-51.1); MEAN CORPUSCULAR HEMOGLOBIN 33 pg (27-31); MEAN CORPUSCULAR HGB CONC 33 g/dL (33-37); MEAN CORPUSCULAR VOLUME 101.3 fL (80-94); MONOCYTES # (AUTO) 1.3 K/uL (0.8-1.0); NEUTROPHILS # (AUTO) 3.1 K/uL (1.8-7.7); NEUTROPHILS % (AUTO) 49.9 % (42.2-75.2); PLATELET COUNT (AUTO) 191 K/uL (140-450); RED BLOOD CELL COUNT(AUTO) 4.01 MIL/uL (4.20-6.10); RED CELL DISTRIBUTION WIDTH 15.5 % (11.6-13.7); WHITE BLOOD COUNT (AUTO) 6.3 K/uL (4.8-10.8)
--- NOTE | 2020-05-03 07:10 | NUR ---
PT RECEIVED FROM NIGHT NURSE. PT IS RESTING IN BED. NO S/S OF DISTRESS. CALL LIGHT IS WITHIN REACH. ALL SAFETY MEASURES IN PLACE. WILL CONTINUE TO MONITOR.
[2020-05-03] MEDS: BLOOD GLUCOSE MONITORING 1 DEV DEV FS SCH ×4 (07:30→21:12)
[2020-05-03 08:00] VITALS: BP 123/64
[2020-05-03 08:08] LABS: T4 (THYROXINE) 4.8 ug/dL (4.5-12.0)
[2020-05-03] MEDS ORDERED: diphenhydrAMINE 50 MG/ML VIAL ONE (08:25)
[2020-05-03] MEDS ORDERED: fentaNYL citrate 0.05 MG/ML VIAL ONE ×2 (08:25)
[2020-05-03] MEDS ORDERED: MIDAZOLAM 5 MG/5 ML VIAL ONE (08:26)
--- NOTE | 2020-05-03 09:40 | NUR ---
PT RETURNED FROM OR FROM PROCEDURE. PT IS RESTING IN BED. NO S/S OF DISTRESS. CALL LIGHT IS WITHIN REACH. ALL SAFETY MEASURES IN PLACE. WILL CONTINUE TO MONITOR.
[2020-05-03] MEDS ORDERED: MIDAZOLAM 2 MG/2 ML VIAL IVP ONE (09:55)
[2020-05-03] MEDS ORDERED: fentaNYL citrate 0.05 MG/ML VIAL IVP ONE (09:55)
--- NOTE | 2020-05-03 10:00 | NUR ---
PT MEDICATION ADMINISTERED ORDERED. PT EDUCATED BUT NEEDS REINFORCEMENT. PT IS RESTING IN BED. NO S/S OF DISTRESS. CALL LIGHT IS WITHIN REACH. ALL SAFETY MEASURES IN PLACE. WILL CONTINUE TO MONITOR.
[2020-05-03] MEDS: VALPROIC ACID 250 MG/5 ML UDC GT SCH ×2 (10:01→21:08)
[2020-05-03] MEDS: FAMOTIDINE 20 MG TAB PO SCH ×2 (10:01→21:09)
[2020-05-03] MEDS: APIXABAN 2.5 MG TAB GT SCH ×2 (10:02→21:12)
[2020-05-03] MEDS: QUEtiapine FUMARATE 100 MG TAB GT SCH ×2 (10:02→21:09)
[2020-05-03 10:13] LABS: APPEARANCE,URINE HAZY (CLEAR); BILIRUBIN,URINE NEGATIVE (NEGATIVE); BLOOD, URINE NEGATIVE (NEGATIVE); COLOR,URINE YELLOW (YELLOW); LEUKOCYTE ESTERASE ,URINE 3+ (NEGATIVE); NITRITE, URINE POSITIVE (NEGATIVE); UGLUCOSE NEGATIVE (NEGATIVE)
[2020-05-03 10:44] LABS: RBC,URINE 0-5 /HPF (0-5)
[2020-05-03 10:45] LABS: WBC,URINE >25 (MANY) /HPF (0-5)
[2020-05-03 12:00] VITALS: BP 103/67
--- NOTE | 2020-05-03 12:00 | NUR ---
PT IS RESTING IN BED. NO S/S OF DISTRESS. CALL LIGHT IS WITHIN REACH. ALL SAFETY MEASURES IN PLACE. WILL CONTINUE TO MONITOR.
--- NOTE | 2020-05-03 14:13 | NUR ---
PT IS RESTING IN BED WITH EYES CLOSED. PT IS EASY TO AROUSE. NO S/S OF DISTRESS. CALL LIGHT IS WITHIN REACH. ALL SAFETY MEASURES IN PLACE. WILL CONTINUE TO MONITOR.
[2020-05-03 16:00] VITALS: BP 119/67
--- NOTE | 2020-05-03 16:30 | NUR ---
PTS BG ASSESSED PER ORDER. NO COVERAGE NEEDED PER MD ORDER. . NO S/S OF DISTRESS. CALL LIGHT IS WITHIN REACH. ALL SAFETY MEASURES IN PLACE. WILL CONTINUE TO MONITOR.
--- NOTE | 2020-05-03 18:44 | NUR ---
PT IS RESTING IN BED CONCERNED ABOUT MISSING TEETH. NO S/S OF DISTRESS. CALL LIGHT IS WITHIN REACH. ALL SAFETY MEASURES IN PLACE. WILL CONTINUE TO MONITOR.
--- NOTE | 2020-05-03 19:00 | NUR ---
PATIENT RECEIVED IN BED WITH G-TUBE MALFUNCTION, AWAKE, A/OX1, WITH INTELLECTUAL DISABILITY AND HISTORY OF CEREBRAL PALSY. ABLE TO ANSWER WITH YES OR NO. CAME FROM BOARD AND CARE, PATIENT HAS G-TUBE PATENT AND IN PROPER PLACEMENT. GLUCERNA 1.2 CONTINUED AT 45CC/HR. RESIDUAL < 10CC. RESPIRATION EVEN AND UNLABORED. ABDOMEN SOFT NON TENDER, G-T SIDE DRY AND CLEAN. PATIENT IS BEDBOUND/WHEELCHAIR BOUND, INCONTINENT. EPIGASTRIC STOMA NOTED. SKIN. CONTINUED ON WOUND CARE BED. NO APPEARANCE OF PAIN NOTED 0/10. ST NOTED HR 98. REINFORCED FALL AND SAFETY PRECAUTIONARY MEASURES. DISORIENTED TO FALL AND SAFETY PRECAUTIONARY MEASURE, MEDICAL CONDITION AND PLAN OF CARE. MAXIMAL CARE RENDERED. 2 PERSON ASSISTANCE. NO ACUTE DISTRESS NOTED. VITAL SIGNS WITHIN PARAMETER.
--- NOTE | 2020-05-03 19:22 | NUR ---
PT ENDORSED TO [employer] DEPUTY SHERIFF FOR CONTINUITY OF CARE. PT IS STABLE.
[2020-05-03 22:00] VITALS: BP 120/70
[2020-05-04] VITALS: BP 126/68
[2020-05-04] MEDS: DEXT 5% /NACL 0.9% 1,000 ML IV SCH (00:33)
[2020-05-04 04:00] VITALS: BP 120/70
[2020-05-04] MEDS: aMILoride 5 MG TAB GT SCH ×2 (05:00→15:08)
[2020-05-04 06:33] LABS: ANION GAP 10.8 (8-16); CARBON DIOXIDE 26.3 mmol/L (21-32); CREATININE 0.5 mg/dL (0.6-1.3); POTASSIUM 5.1 mmol/L (3.5-5.1)
[2020-05-04] MEDS: BLOOD GLUCOSE MONITORING 1 DEV DEV FS SCH ×2 (06:34→12:24)
[2020-05-04 06:46] LABS: BASOPHILS # (AUTO) 0.1 K/uL (0.00-0.22); BASOPHILS % (AUTO) 1.1 % (0.0-2.0); EOSINOPHILS # (AUTO) 0.1 K/uL (0-0.4); EOSINOPHILS % (AUTO) 2.4 % (0.0-4.0); HEMATOCRIT 35.6 % (36-52); LYMPHOCYTES # (AUTO) 1.8 K/uL (2.0-11.5); LYMPHOCYTES % (AUTO) 28.6 % (20.5-51.1); MEAN CORPUSCULAR HEMOGLOBIN 34 pg (27-31); MEAN CORPUSCULAR HGB CONC 34 g/dL (33-37); MEAN CORPUSCULAR VOLUME 100.4 fL (80-94); MONOCYTES # (AUTO) 1.2 K/uL (0.8-1.0); NEUTROPHILS # (AUTO) 3.1 K/uL (1.8-7.7); NEUTROPHILS % (AUTO) 48.9 % (42.2-75.2); PLATELET COUNT (AUTO) 179 K/uL (140-450); RED BLOOD CELL COUNT(AUTO) 3.55 MIL/uL (4.20-6.10); RED CELL DISTRIBUTION WIDTH 15.3 % (11.6-13.7); WHITE BLOOD COUNT (AUTO) 6.3 K/uL (4.8-10.8)
[2020-05-04] MEDS ORDERED: CEPH250C16 PO (08:42)
[2020-05-04 09:16] VITALS: BP 125/72
[2020-05-04] MEDS: VALPROIC ACID 250 MG/5 ML UDC GT SCH (11:09)
[2020-05-04] MEDS: FAMOTIDINE 20 MG TAB PO SCH (11:10)
[2020-05-04] MEDS: QUEtiapine FUMARATE 100 MG TAB GT SCH (11:11)
[2020-05-04] MEDS: APIXABAN 2.5 MG TAB GT SCH (11:12)
[2020-05-04 12:00] VITALS: BP 125/72
[2020-05-04 16:20] VITALS: BP 125/72
--- NOTE | 2020-05-04 16:51 | NUR ---
Patient discharged and information given to transportation. Tried to reach Boarding care staff but no response. All discharge paperwork given to and instructions to transport team.
== END 2020-05-04 16:56 | DRG 393 ==
LOC: MED 18:33 → MTU 19:31
PROVIDERS: ADMIT Emergency Medicine; ATTEND Emergency Medicine
PROC: 0DH63UZ Insertion of Feeding Device into Stomach, Percutaneous Approach (ICD-10-PCS; principal; 2020-05-03 09:00)
DX: K94.23 Gastrostomy malfunction (principal); R53.2 Functional quadriplegia; G12.22 Progressive bulbar palsy; K94.22 Gastrostomy infection; Z20.822 Contact with and (suspected) exposure to COVID-19; F03.90 Unspecified dementia, unspecified severity, without behavioral disturbance, psychotic disturbance, mood disturbance, and anxiety; E78.5 Hyperlipidemia, unspecified; E11.9 Type 2 diabetes mellitus without complications; F79 Unspecified intellectual disabilities; F31.9 Bipolar disorder, unspecified; K21.9 Gastro-esophageal reflux disease without esophagitis; Z86.73 Personal history of transient ischemic attack (TIA), and cerebral infarction without residual deficits; G40.909 Epilepsy, unspecified, not intractable, without status epilepticus; G80.9 Cerebral palsy, unspecified; Z74.01 Bed confinement status; D64.9 Anemia, unspecified; F20.9 Schizophrenia, unspecified; I10 Essential (primary) hypertension; K29.80 Duodenitis without bleeding; Z87.01 Personal history of pneumonia (recurrent)
CPT/HCPCS: 36415; 71045; 74018; 76700; 80048; 80053; 80156; 81001; 82150; 82948; 83036; 83690; 83735; 84100; 84436; 84439; 84443; 84479; 85025; 85610; 85730; 87081; 87086; 93005; 99285; C1758; J0690; J1200; J2250; J3010; J7030; J7042; J7060

== ENCOUNTER 2020-08-23 09:50 | Inpatient (IN) | payer OTHER, MEDICAID, SELFPAY ==
[~2020-08-23] VITALS: Ht 162.6 cm; Wt 63.5 kg
[~2020-08-23 09:50] MED LIST changes: +CEPH250C16 PO; +FAMO40PD4 GT; -FAMO40PD4 PO
[2020-08-23 09:54] VITALS: BP 104/45
[2020-08-23] MEDS ORDERED: NACL 0.9% 500 ML IV ONE (10:00)
[2020-08-23] MEDS ORDERED: PRO5 PO (10:06)
[2020-08-23] MEDS ORDERED: ASPI-1822 GT (10:06)
[2020-08-23] MEDS ORDERED: MULT9LIQ GT (10:06)
[2020-08-23] MEDS ORDERED: [UNRECOGNIZED DRUG - CODE] GT (10:06)
[2020-08-23] MEDS ORDERED: COL100L GT (10:06)
[2020-08-23] MEDS ORDERED: BISA-218 RC (10:08)
[2020-08-23] MEDS ORDERED: PRON INH (10:08)
[2020-08-23] MEDS ORDERED: MIRABULK GT (10:08)
[2020-08-23] MEDS ORDERED: LORA-476 PO (10:08)
--- NOTE | 2020-08-23 10:15 | NUR ---
Pt taken to ER bed 6.
--- NOTE | 2020-08-23 10:19 | NUR ---
70 Y/O MALE [facility] GCS 9, BASELINE PER FACILITY USUALLY 13. PER EMT "PT NOT RESPONSIVE TODAY". DENIES FEVER/CHILLS, DENIES N/V. BLOOD SUGAR ON ARRIVAL 99. GCS ON ARRIVAL 7. MADE AWARE. PMH: DM, DEMENTIA, BIPOLAR, CEREBRAL PALSY (SEE PACKET FOR EXTENSIVE HX) GREGORIA
--- NOTE | 2020-08-23 10:25 | NUR ---
Lab at bedside.
--- NOTE | 2020-08-23 10:33 | NUR ---
Covid heidi swab collected, handed to CPT Hector at ER bedside.
--- NOTE | 2020-08-23 10:33 | NUR ---
Patient urinated while preparing for straight catheter procedure; urine sample collected by void. Urine sample collected and handed to CPT Hector at ER bedside.
--- NOTE | 2020-08-23 10:36 | NUR ---
RT at pt bedside for ABG.
[2020-08-23 10:41] LABS: BASOPHILS # (AUTO) 0.1 K/uL (0.00-0.22); BASOPHILS % (AUTO) 1.2 % (0.0-2.0); EOSINOPHILS # (AUTO) 0.1 K/uL (0-0.4); EOSINOPHILS % (AUTO) 1.7 % (0.0-4.0); HEMATOCRIT 27.5 % (36-52); LYMPHOCYTES # (AUTO) 1.7 K/uL (2.0-11.5); LYMPHOCYTES % (AUTO) 26.7 % (20.5-51.1); MEAN CORPUSCULAR HEMOGLOBIN 33 pg (27-31); MEAN CORPUSCULAR HGB CONC 33 g/dL (33-37); MEAN CORPUSCULAR VOLUME 100.5 fL (80-94); MONOCYTES # (AUTO) 1.1 K/uL (0.8-1.0); MONOCYTES % (AUTO) 16.8 % (1.7-9.3); NEUTROPHILS # (AUTO) 3.4 K/uL (1.8-7.7); NEUTROPHILS % (AUTO) 53.6 % (42.2-75.2); PLATELET COUNT (AUTO) 239 K/uL (140-450); RED BLOOD CELL COUNT(AUTO) 2.73 MIL/uL (4.20-6.10); RED CELL DISTRIBUTION WIDTH 14.6 % (11.6-13.7); WHITE BLOOD COUNT (AUTO) 6.3 K/uL (4.8-10.8)
[2020-08-23 10:52] LABS: BILIRUBIN,URINE NEGATIVE (NEGATIVE); COLOR,URINE YELLOW (YELLOW); LEUKOCYTE ESTERASE ,URINE 3+ (NEGATIVE); NITRITE, URINE NEGATIVE (NEGATIVE); PH,URINE 7.5 (5.0-9.0); UGLUCOSE NEGATIVE (NEGATIVE)
[2020-08-23 10:53] LABS: APPEARANCE,URINE HAZY (CLEAR)
--- NOTE | 2020-08-23 10:54 | NUR ---
PT TAKEN TO CT VIA JOSE
--- NOTE | 2020-08-23 10:54 | NUR ---
PT PLACED ON 2L OF OXYGEN
[2020-08-23 10:57] LABS: ANION GAP 13.2 (8-16); CARBON DIOXIDE 30.9 mmol/L (21-32); CREATININE 1.5 mg/dL (0.6-1.3); POTASSIUM 5.1 mmol/L (3.5-5.1); PROTHROMBIN TIME 11.4 secs (10.8-13.4); TOTAL BILIRUBIN 0.3 mg/dL (0.0-1.0)
--- NOTE | 2020-08-23 11:07 | NUR ---
PT RETURNED BACK FROM CT AND PLACED IN BED 6.
[2020-08-23] MEDS ORDERED: NACL 0.9% 1,000 ML IV ONE (11:20)
[2020-08-23] MEDS ORDERED: cefTRIAXone 2,000 MG in DEXTROSE 5% 100 ML IV ONE (11:20)
[2020-08-23] MEDS ORDERED: cefTRIAXone 2,000 MG VIAL ONE (11:23)
[2020-08-23 11:29] LABS: ACETAMINOPHEN < 0.5 ug/ml (10-30); SALICYLATE < 2.8 mg/dL (2.8-20.0)
[2020-08-23] MEDS: DEXT 5% / NACL 0.45% 1,000 ML IV SCH ×2 (11:50→21:55)
[2020-08-23 12:15] VITALS: BP 111/57
--- NOTE | 2020-08-23 12:15 | NUR ---
PATIENT ARRIVED ON UNIT. NO DISTRESS NOTED. ON O2 2L/MIN VIA NC. HEATH CATHETER IN PLACE, DRAINING CLOUDY, PINK TINGED URINE. IV SITE INTACT, PATENT, AND INFUSING IVF PER MD ORDERS. PATIENT HAS MENTAL DISABILITY, ABLE TO SPEAK AT TIMES. REVIEWED PLAN OF CARE WITH PATIENT. UNABLE TO COMPREHEND. SAFETY MEASURES IN PLACE, CALL LIGHT WITHIN REACH. WILL CONTINUE TO MONITOR.
--- NOTE | 2020-08-23 12:20 | NUR ---
Patient will be admitted to care of DR MARTA DOWNEY. Admited to TELE. Will go to room 121B. Belongings list completed. Report to
[2020-08-23 12:24] LABS: WBC,URINE 20-60 /HPF (0-5)
[2020-08-23 12:27] LABS: BLOOD, URINE 1+ (NEGATIVE); RBC,URINE 0-5 /HPF (0-5)
--- NOTE | 2020-08-23 14:41 | NUR ---
SCHEDULED MEDICATIONS DUE GIVEN. WILL CONTINUE TO MONITOR.
[2020-08-23 16:00] VITALS: BP 126/65
--- NOTE | 2020-08-23 16:30 | NUR ---
PATIENT LYING DOWN IN BED SLEEPING, AROUSABLE BY VOICE. CONDITION UNCHANGED. WILL CONTINUE TO MONITOR.
[2020-08-23] MEDS ORDERED: MIDODRINE 5 MG TAB PO SCH (19:00)
--- NOTE | 2020-08-23 19:23 | NUR ---
GAVE REPORT TO MEETING FACILITATOR NURSE FOR CONTINUITY OF CARE. PATIENT IN STABLE CONDITION.
--- NOTE | 2020-08-23 19:35 | NUR ---
RECEIVED REPORT FROM [facility] NURSE. PT ON NASAL CANNULA 2L. AWAKE AND ALERT TO NAME. PT TOGOLESE SPEAKING. SOME WORDS ARE INCOMPREHENSIBLE, PT HAS HX OF INTELLECTUAL DELAY. LEFT FOREARM 20G, INFUSING D51/2NS @ 100ML/HR. SKIN WARM DRY AND INTACT, AFEBRILE. 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 PUPILS REACTIVE. GTUBE IN PLACE, CONNECTED TO LNEPRO @ 40ML/HR. BOWEL SOUNDS ACTIVE, AB BINDER IN PLACE. HEATH CATHETER IN PLACE, EDMUNDO HAZY URINE NOTED WITH SOME SEDIMENT. BED LOCKED AND IN LOWEST POSITION, SIDE RAILS UP, HOB 30 DEGREES. WILL CONTINUE TO MONITOR.
[2020-08-23] MEDS ORDERED: POLYETHYLENE GLYCOL 17 GM/PKT GT PRN (19:55)
[2020-08-23] MEDS ORDERED: ALBUTEROL 0.083% 2.5 MG/3 ML NEBU INH PRN (19:55)
[2020-08-23] MEDS ORDERED: LORazepam 1 MG TAB GT PRN (19:55)
[2020-08-23] MEDS ORDERED: bisacodyL 10 MG SUPP RC PRN (19:55)
[2020-08-23 20:00] VITALS: BP 129/56
[2020-08-23] MEDS ORDERED: ACETAMINOPHEN 325 MG TAB GT PRN (20:00)
[2020-08-23] MEDS ORDERED: ONDANSETRON 4 MG/2 ML VIAL IVP PRN (20:00)
[2020-08-23] MEDS ORDERED: POTASSIUM BICARBONATE GT SCH (21:00)
[2020-08-23] MEDS ORDERED: CIT AC GT SCH (21:00)
[2020-08-23] MEDS ORDERED: NON-FORMULARY ITEM (Famotidine 20 MG) GT SCH (21:00)
--- NOTE | 2020-08-23 21:10 | NUR ---
GASTRIC RESIDUALS LESS THAN 15ML. TOLERATING WELL. ALL SCHEDULED MEDS GIVEN AND FLUSHED. PT TURNED AND REPOSITIONED. ALL NEEDS MET AT THIS TIME.
[2020-08-23] MEDS ORDERED: PIPERACILLIN/TAZOBACTAM 3.375 GM VIAL IV ONE (21:45)
[2020-08-23] MEDS: PIPERACILLIN/TAZOBACTAM 3.375 GM in DEXTROSE 5% 50 ML IV SCH (21:53)
[2020-08-23] MEDS: MIDODRINE 5 MG TAB GT SCH (21:54)
[2020-08-23] MEDS: TAMSULOSIN 0.4 MG CAP PO SCH (21:54)
[2020-08-23] MEDS: QUEtiapine FUMARATE 100 MG TAB GT SCH (21:54)
[2020-08-23] MEDS: APIXABAN 2.5 MG TAB GT SCH (21:55)
--- NOTE | 2020-08-23 23:15 | NUR ---
PT TURNED AND REPOSITIONED WITH SHAKE CUTTER, SMALL BOWEL MOVEMENT NOTED, BROWN AND FORMED. NO SKIN BREAKDOWN NOTED. OFFLOADED PRESSURE AREAS. DENIES PAIN. WILL CONTINUE TO MONITOR.
[2020-08-24] VITALS: BP 131/58
--- NOTE | 2020-08-24 01:11 | NUR ---
PT RESTING WELL. ALERT TO VOICE. NO SIGNS OF DISTRESS. SAFETY MEASURES IN PLACE. WILL CONTINUE TO MONITOR.
--- NOTE | 2020-08-24 03:11 | NUR ---
PT RESTING WELL. NO SIGNS OF DISTRESS. VISIBLE CHEST RISE AND FALL. PT HAS NASAL CANNULA OFF, SPO2 96%. NO SOB NOTED. NASAL CANNULA OK TO BE OFF. SAFETY MEASURES IN PLACE.
[2020-08-24 04:00] VITALS: BP 139/62
[2020-08-24] MEDS: MIDODRINE 5 MG TAB GT SCH ×3 (05:00→21:00)
[2020-08-24 05:08] LABS: BASOPHILS % (AUTO) 0.7 % (0.0-2.0); EOSINOPHILS # (AUTO) 0.3 K/uL (0-0.4); EOSINOPHILS % (AUTO) 4.3 % (0.0-4.0); HEMATOCRIT 28.5 % (36-52); HEMOGLOBIN 9.4 g/dL (12.0-18.0); LYMPHOCYTES # (AUTO) 1.2 K/uL (2.0-11.5); LYMPHOCYTES % (AUTO) 19.3 % (20.5-51.1); MEAN CORPUSCULAR HEMOGLOBIN 34 pg (27-31); MEAN CORPUSCULAR HGB CONC 33 g/dL (33-37); MEAN CORPUSCULAR VOLUME 102.3 fL (80-94); MONOCYTES % (AUTO) 16.9 % (1.7-9.3); NEUTROPHILS # (AUTO) 3.5 K/uL (1.8-7.7); NEUTROPHILS % (AUTO) 58.8 % (42.2-75.2); PLATELET COUNT (AUTO) 258 K/uL (140-450); RED BLOOD CELL COUNT(AUTO) 2.78 MIL/uL (4.20-6.10); RED CELL DISTRIBUTION WIDTH 14.5 % (11.6-13.7)
--- NOTE | 2020-08-24 05:40 | NUR ---
PTS GTUBE IS CLOGGED AND TUBE FEEDING PUMP IS ALARMING. UNABLE TO FLUSH. CHARGE NURSE AT BEDSIDE.AND ICU CHARGE WITH DECLOGGING TOOL. UNABLE TO ASPIRATED OR FLUSH WITH FLUIDS. SCHEDULED MEDICATION FOR BP UNABLE TO ADMINISTER. PTS BLOOD PRESSURE SBP IN 130's. WILL REASSESS.
[2020-08-24] MEDS: PIPERACILLIN/TAZOBACTAM 3.375 GM in DEXTROSE 5% 50 ML IV SCH ×3 (05:50→22:10)
[2020-08-24 05:59] LABS: ALBUMIN 1.9 g/dL (3.4-5.0); ANION GAP 14.1 (8-16); CARBON DIOXIDE 29.1 mmol/L (21-32); CREATININE 0.9 mg/dL (0.6-1.3); MAGNESIUM 2.6 mg/dL (1.8-2.4); PHOSPHORUS 3.6 mg/dL (2.5-4.9); POTASSIUM 4.2 mmol/L (3.5-5.1); TOTAL BILIRUBIN 0.3 mg/dL (0.0-1.0)
[2020-08-24] MEDS ORDERED: PIPERACILLIN/TAZOBACTAM 3.375 GM VIAL IV ONE (06:02)
--- NOTE | 2020-08-24 06:20 | NUR ---
CHARGE NURSE ABLE TO CLEAR GTUBE. FLUSHES SLOW AND WITH FIRM PRESSURE. WILL CONTINUE TO KEEP FEEDING OFF TO PREVENT CLOGGING. WILL ENDORSE TO DAYSHIFT NURSE. IVF D51/[address] . EMPTIED HEATH 1350ML. PT NOT IN DISTRESS. BED LOCKED AND IN LOWEST POSITION, SIDE RAILS UP.
--- NOTE | 2020-08-24 07:10 | NUR ---
ENDORSED TO DAYSHIFT NURSE AT BEDSIDE, SAFETY MEASURES IN PLACE.
--- NOTE | 2020-08-24 07:45 | NUR ---
RECEIVED BEDSIDE REPORT FROM JIG OPERATOR NURSE. PATIENT IS AWAKE RESPIRATION EVEN UNLABORED ON ROOM AIR. NO DISTRESS NOTED. SKIN IS WARM AND DRY. IV PATENT AND INTACT. G-TUBE NOTED. HEATH CATHETER IN PLACE DRAINING YELLOW URINE. PLAN OF CARE DISCUSSED. ALL SAFETY MEASURE IN PLACE. BED IS AT LOW POSITION. CALL LIGHT WITHIN REACH WILL CONTINUE TO MONITOR.
[2020-08-24] MEDS: DEXT 5% / NACL 0.45% 1,000 ML IV SCH (07:50)
[2020-08-24 08:00] VITALS: BP 114/63
--- NOTE | 2020-08-24 08:08 | NUR ---
ASLEEP EASILY AWAKENS GOOD CHEST RISE PATIENT REFUSES TO USE SUPPLEMENTAL OXYGEN
[2020-08-24] MEDS ORDERED: bisacodyL 10 MG SUPP RC PRN (08:37)
[2020-08-24] MEDS ORDERED: CRUSHER, PILL MC ONE (08:56)
[2020-08-24] MEDS: FAMOTIDINE 20 MG TAB GT SCH (08:58)
[2020-08-24] MEDS: ASPIRIN 81 MG TAB.CHEW GT SCH (08:59)
[2020-08-24] MEDS: DOCUSATE 100 MG/10 ML UDC GT SCH (08:59)
--- NOTE | 2020-08-24 09:00 | NUR ---
ALL SCHEDULED MEDS WERE GIVEN PER ORDER. MD AT BEDSIDE. PER MD CHANGE IV FLUIDS TO D5W @60CC/HR.
[2020-08-24] MEDS: APIXABAN 2.5 MG TAB GT SCH ×2 (09:01→21:54)
--- NOTE | 2020-08-24 10:07 | NUR ---
PATIENT HAS BEEN SCREENED AND CATEGORIZED HIGH NUTRITION RISK. PATIENT WILL BE SEEN WITHIN 1-2 DAYS OF ADMISSION. 08/24/[address]
[2020-08-24] MEDS: DEXTROSE 5% 1,000 ML IV SCH (11:18)
[2020-08-24 12:00] VITALS: BP 111/60
--- NOTE | 2020-08-24 12:25 | NUR ---
PATIENT IS AGITATED, TRY TO CALM HIM DOWN, UNABLE TO FOLLOW COMMANDS, PRN ATIVAN GIVEN PER ORDER. WILL CONTINUE TO MONITOR.
--- NOTE | 2020-08-24 13:42 | NUR ---
CHECKED ON PATIENT, PATIENT IS NOW CALM AND COOPERATIVE. WILL CONTINUE TO MONITOR
[2020-08-24 16:00] VITALS: BP 99/81
--- NOTE | 2020-08-24 16:42 | NUR ---
08/24/2020 RD INITIAL ASSESSMENT COMPLETED PLEASE REFER TO NUTRITION ASSESSMENT UNDER CARE ACTIVITY FOR ESTIMATED NUTRITIONAL NEEDS. DIET CONSULT FOR TUBE FEEDING, RECOMMEND CONTINUE NEPRO @ 40 ML/HR WILL PROVIDE 1728 KCALS AND 78 GM PRO/DAY TO MEET 100% ESTIMATED ENERGY AND PROTEIN NEEDS, OKAY TO RESUME PREVIOUS FEEDINGS OF JEVITY 1.2 ONCE RENAL FUNCTION IS NO LONGER A CONCERN RD TO FOLLOW-UP IN 2-3 DAYS PATIENT IS HIGH RISK. TIRSO LUND, RD
--- NOTE | 2020-08-24 17:30 | NUR ---
CHECKED ON PATIENT. PATIENT IS SLEEPING WITH NO DISTRESS NOTED. WILL CONTINUE TO MONITOR
--- NOTE | 2020-08-24 19:20 | NUR ---
ENDORSED PATIENT TO VENETIAN BLIND TAPE CUTTER NURSE FOR CONTINUITY OF CARE
--- NOTE | 2020-08-24 19:30 | NUR ---
RECEIVED REPORT FROM RAMIRO ACOSTA DAYSHIFT NURSE AT BEDSIDE FOR CONTINUITY OF CARE, PT IN STABLE CONDITION. PT LYING IN BED AOX1, WITH SLURRED SPEECH HE SPEAKS LIMITED WORDS IN ALBANIAN AND CROATIAN. HE IS ON ROOM AIR AND RESPIRATIONS ARE EVEN AND UNLABORED. PT HAS LEFT HAND 22 GUAGE RUNNING D5 AT 60MLS/HR. PT ALSO HAS G TUBE INTACT AND RUNNING NEPHRO TUBE FEEDING AT 40MLS/HR WITH H2O FLUSH OF 30 Q 4 HR. SKIN IS INTACT. PT ALSO HAS A HEATH CATHETER DRAINING LIGHT EDMUNDO URINE. PT IS BEDBOUND WITH ALL FALLS, ASPIRATION AND SEIZURE PRECAUTIONS IN PLACE.
[2020-08-24 20:00] VITALS: BP 140/69
--- NOTE | 2020-08-24 20:15 | NUR ---
PT LYING IN BED HOB ELEVATED 45%. PT REPOSITIONED IN BED. IV FLUIDS OF D5 CONTINUES TO RUN AT 60MLS/HR ORDERED. NEPHRO CONTINUES AT 40MLS/HR NO RESIDUAL NOTED. HEATH CATHETER INTACT AND CONTINUES TO DRAIN EDMUNDO YELLOW URINE, PT HAS NO S/S OF PAIN OR DISCOMFORT. V/S FOLLOWS: T 98.8 P 89 R 17 B/P 140/69 02 97% ON ROOM AIR. ALL ORDERED PRECAUTIONS IN PLACE.
--- NOTE | 2020-08-24 21:30 | NUR ---
PT GIVEN ORDERED AND SCHEDULED MEDS VIA GT, NO RESIDUAL NOTED. PT UNABLE TO COMPREHEND MEDICATION TEACHING. PT ALSO HAS ORDERED ZOSYN HUNG AND RUNNING AT 100MLS/HR. IV SITE INTACT AND CONTINUES TO RUN D5 AT 60MLS/HR ORDERED, . HEATH CATHETER CONTINUES TO DRAIN EDMUNDO URINE. PT RR EVEN AND UNLABORED ON ROOM AIR HOB UP 45%. ALL ASPIRATION, FALLS AND SEIZURE PRECAUTIONS IN PLACE.
[2020-08-24] MEDS: QUEtiapine FUMARATE 100 MG TAB GT SCH (21:55)
[2020-08-24] MEDS: TAMSULOSIN 0.4 MG CAP PO SCH (21:56)
--- NOTE | 2020-08-24 22:15 | NUR ---
PT WAS TURNED, CHANGED AND REPOSITIONED IN BED. NEPHRO CONTINUES TO RUN AT 40MLS/HR ORDERED. IV FLUID D5 CONTINUES ORDERED. HEATH CATHETER CONTINUES TO DRAIN EDMUNDO URINE. PT HAS NO S/S OF PAIN OR DISCOMFORT NOTED. ALL ASPIRATION, SEIZURE AND FALLS PRECAUTIONS IN PLACE.
[2020-08-25] VITALS: BP 136/75
--- NOTE | 2020-08-25 00:15 | NUR ---
PT IN BED RESTING COMFORTABLY WITH EYES CLOSED HOB UP 45% NEPHRO AND IV FLUIDS CONTINUE TO RUN ORDERED. ALL ORDERED PRECAUTIONS IN PLACE.
[2020-08-25] MEDS: DEXTROSE 5% 1,000 ML IV SCH ×2 (03:05→19:45)
[2020-08-25 04:00] VITALS: BP 143/51
--- NOTE | 2020-08-25 04:30 | NUR ---
PT IN BED , HE WAS TURNED, CHANGED AND REPOSITIONED, HEATH CATHETER IN PLACE. TUBE FEEDING REPLACED, FLUIDS REPLACED AND RUNNING ORDERED. ALL ORDERED PRECAUTIONS IN PLACE, V/S STABLE NO S/S OF PAIN OR DISTRESS NOTED.
[2020-08-25] MEDS: MIDODRINE 5 MG TAB GT SCH ×3 (05:00→21:29)
[2020-08-25] MEDS: PIPERACILLIN/TAZOBACTAM 3.375 GM in DEXTROSE 5% 50 ML IV SCH ×3 (05:00→21:00)
--- NOTE | 2020-08-25 06:00 | NUR ---
PT REFUSED LAB DRAWS
--- NOTE | 2020-08-25 07:55 | NUR ---
PATIENT RECEIVED FROM COUNTER CONTROL OPERATOR RN. PT RESTING IN BED. NO S/SX OF DISTRESS. CALL LIGHT WITHIN REACH NO SAFETY MEASURES ARE IN PLACE.
[2020-08-25 08:00] VITALS: BP 144/63
[2020-08-25] MEDS: DOCUSATE 100 MG/10 ML UDC GT SCH (09:21)
[2020-08-25] MEDS: ASPIRIN 81 MG TAB.CHEW GT SCH (09:22)
[2020-08-25] MEDS: FAMOTIDINE 20 MG TAB GT SCH (09:22)
[2020-08-25] MEDS: APIXABAN 2.5 MG TAB GT SCH ×2 (09:23→21:34)
--- NOTE | 2020-08-25 09:45 | NUR ---
MEDICATIONS GIVEN PER MD ORDER. PATIENT EDUCATED AND VERBALIZED UNDERSTANDING . NO S/SX OF DISTRESS. CALL LIGHT WITHIN REACH NO SAFETY MEASURES ARE IN PLACE.
--- NOTE | 2020-08-25 11:10 | NUR ---
PT RESTING IN BED NO S/S OF DISTRESS AT THIS TIME. PT ASSESSED FOR RESIDUAL 5 MLS AT THIS TIME
[2020-08-25 12:00] VITALS: BP 138/61
--- NOTE | 2020-08-25 13:40 | NUR ---
MEDICATIONS GIVEN PER MD ORDER. PATIENT EDUCATED AND VERBALIZED UNDERSTANDING . NO S/SX OF DISTRESS. CALL LIGHT WITHIN REACH NO SAFETY MEASURES ARE IN PLACE.
[2020-08-25 16:00] VITALS: BP 124/76
--- NOTE | 2020-08-25 17:19 | NUR ---
PT RESTING IN BED PT STATES HE WANTS SODA. PT EDUCATED REINFORCEMENT NEEDED
--- NOTE | 2020-08-25 18:48 | NUR ---
PT RESTING IN BED. PT STATES HE IS FROM [place] AND WANTS SOCKS . PT PROVIDED SOCKS. HE STATES HE HAS NO TEETH. NO S/SX OF DISTRESS. CALL LIGHT WITHIN REACH NO SAFETY MEASURES ARE IN PLACE.
--- NOTE | 2020-08-25 19:18 | NUR ---
PT ENDORSED TO ICT DEVELOPER NURSE FOR CONTINUITY OF CARE. PT STABLE
--- NOTE | 2020-08-25 19:19 | NUR ---
RECD RESTING IN BED, AWAKE, ALERT, CONFUSED. REORIENTED TO HOSPITAL SETTING. RESPIRATION EVEN AND UNLABORED. IV OF DEXTROSE 5% INFUSING AT 60 ML/HR LEFT FOREARM G20. ON GT FEEDING OF NEPHRO AT 40 ML/HR. GT SITE DRY AND INTACT. F/C PATENT DRAINING CLEAR YELLOW URINE. SAFETY MEASURES ENFORCED, SIDE RAILS WITH PADS. MEDICATIONS AND CARE FOR THE SHIFT DISCUSSED WITH PATIENT. NEEDS REINFORCEMENTS. NO APPEARANCE OF PAIN NOTED 0/10.
[2020-08-25 20:00] VITALS: BP 125/71
[2020-08-25] MEDS: QUEtiapine FUMARATE 100 MG TAB GT SCH (21:28)
[2020-08-25] MEDS: TAMSULOSIN 0.4 MG CAP PO SCH (21:33)
--- NOTE | 2020-08-25 21:34 | NUR ---
SCHEDULED MEDICATONS GIVEN VIA GT. CONFUSED, REORIENTED TO HOSPITAL SETTING.
--- NOTE | 2020-08-25 23:00 | NUR ---
HAD LARGE LOOSE BM, DARK BROWN IN COLOR. CLEANSED AND REPOSITIONED IN BED WITH PILLOWS. GETS UPSET DURING CLEANING AND TRIES TO GRAB NURSES.
[2020-08-26] VITALS: BP 124/75
[2020-08-26] MEDS: DEXTROSE 5% 1,000 ML IV SCH ×2 (02:07→12:20)
--- NOTE | 2020-08-26 02:29 | NUR ---
Patient's Plan of Care was discussed and reviewed with BISI: ANUSHA
--- NOTE | 2020-08-26 02:49 | NUR ---
PT SLEEPING COMFORTABLY ON RA W/ NO DISTRESS NOTED
[2020-08-26 04:00] VITALS: BP 149/75
--- NOTE | 2020-08-26 04:00 | NUR ---
NO COMPLAINT OF PAIN 0/10. VS STABLE. 02 SAT - 97% ON ROOM AIR.
[2020-08-26] MEDS: MIDODRINE 5 MG TAB GT SCH (05:00)
[2020-08-26] MEDS: PIPERACILLIN/TAZOBACTAM 3.375 GM in DEXTROSE 5% 50 ML IV SCH ×3 (05:59→21:00)
--- NOTE | 2020-08-26 07:29 | NUR ---
STILL SLEEPING COMFORTABLY IN BED. CONDITION REMAIN STABLE. ENDORSED TO AM SHIFT NURSE FOR CONTINUITY OF CARE.
--- NOTE | 2020-08-26 07:30 | NUR ---
RECEIVED REPORT FROM GAS FURNACE INSTALLER NURSE. PT IN BED HOB ELEVATED, AOX1, ASLEEP, AROUSABLE TO NAME AND LIGHT SHAKING. SPEECH IS MUMBLED, OPENS EYES SPONTANEOUSLY AND TRACKS. SKIN IS INTACT, WITH LFA 20G RUNNING D5W AT 60CC/HR. ON GTUBBE FEEDING RUNNING NEPRO 40CC/HR WITH 30CC Q4 FLUSH. SAFETY AND FALLS PRECAUTIONS IN PLACE. CALL LIGHT WITHIN REACH. WILL CONTINUE TO MONITOR
[2020-08-26 08:00] VITALS: BP 134/68
[2020-08-26] MEDS: ASPIRIN 81 MG TAB.CHEW GT SCH (08:55)
[2020-08-26] MEDS: DOCUSATE 100 MG/10 ML UDC GT SCH (08:55)
--- NOTE | 2020-08-26 09:00 | NUR ---
DUE MORNING MEDS GIVEN VIA GT. TOLERATED WELL
[2020-08-26] MEDS: FAMOTIDINE 20 MG TAB GT SCH (09:26)
[2020-08-26] MEDS: APIXABAN 2.5 MG TAB GT SCH ×2 (09:27→21:46)
--- NOTE | 2020-08-26 11:15 | NUR ---
ASLEEP IN BED, NO APPARENT DISTRESS NO SOB
--- NOTE | 2020-08-26 13:12 | NUR ---
PT AWAKE IN BED. NO APPARENT DISTRESS, NO SOB, FLACC 0
[2020-08-26 16:00] VITALS: BP 129/66
--- NOTE | 2020-08-26 16:16 | NUR ---
PT RESTING WELL. ALERT TO VOICE. NO SIGNS OF DISTRESS.
--- NOTE | 2020-08-26 18:40 | NUR ---
PT AWAKE IN BED. NO APPARENT DISTRESS, RESPIRATIONS ARE EVEN AND UNLABORED
--- NOTE | 2020-08-26 19:15 | NUR ---
RECD. RESTING IN BED, AWAKE, A/OX1. CONFUSED, REORIENTED TO HOSPITAL SETTING. IV OF DEXTROSE 5% INFUSING AT 60 ML/HR LEFT FOREARM G20. GT FEEDING OF NEPHRO INFUSING AT 40 ML/HR, GT SITE DRY AND INTACT. F/C PATENT LIGHT TEA COLORED URINE, NOTED SMALL AMOUNT OF BLOOD IN THE TUBE. SAFETY MEASURES ENFORCED. DENIES PAIN 0/10.
[2020-08-26 20:00] VITALS: BP 132/65
[2020-08-26] MEDS: QUEtiapine FUMARATE 100 MG TAB GT SCH (21:45)
[2020-08-26] MEDS: TAMSULOSIN 0.4 MG CAP PO SCH (21:45)
--- NOTE | 2020-08-26 21:45 | NUR ---
SCHEDULED MEDICATIONS GIVEN VIA GT. RESIDUAL 5 ML, TOLERATING GT FEEDING WELL. VERBALIZED HE WANTS TO GO HOME, ADVISED TO WAIT FOR TOMORROW.
--- NOTE | 2020-08-26 22:04 | NUR ---
Patient's Plan of Care was discussed and reviewed with BISI: ANUSHA
--- NOTE | 2020-08-26 23:00 | NUR ---
HAD LARGE LOOSE BM, BROWN IN COLOR. CLEANSED AND MADE COMFORTABLE IN BED WITH PILLOWS.
[2020-08-27] VITALS: BP_SYST 123; BP_SYST 132; BP_DIAS 62; BP_DIAS 65
--- NOTE | 2020-08-27 01:00 | NUR ---
STILL AWAKE, CONFUSED. REORIENTED TO HOSPITAL SETTING.
[2020-08-27] MEDS: DEXTROSE 5% 1,000 ML IV SCH ×2 (01:35→05:05)
--- NOTE | 2020-08-27 03:00 | NUR ---
SLEEPING COMFORTABLY IN BED.
[2020-08-27] MEDS: PIPERACILLIN/TAZOBACTAM 3.375 GM in DEXTROSE 5% 50 ML IV SCH ×3 (05:01→20:13)
[2020-08-27 05:18] LABS: BASOPHILS # (AUTO) 0.1 K/uL (0.00-0.22); BASOPHILS % (AUTO) 0.7 % (0.0-2.0); EOSINOPHILS # (AUTO) 0.1 K/uL (0-0.4); EOSINOPHILS % (AUTO) 1.1 % (0.0-4.0); HEMATOCRIT 26.4 % (36-52); HEMOGLOBIN 8.9 g/dL (12.0-18.0); LYMPHOCYTES % (AUTO) 25.2 % (20.5-51.1); MEAN CORPUSCULAR HEMOGLOBIN 34 pg (27-31); MEAN CORPUSCULAR HGB CONC 34 g/dL (33-37); MEAN CORPUSCULAR VOLUME 100.2 fL (80-94); MONOCYTES # (AUTO) 1.8 K/uL (0.8-1.0); MONOCYTES % (AUTO) 22.7 % (1.7-9.3); NEUTROPHILS % (AUTO) 50.3 % (42.2-75.2); PLATELET COUNT (AUTO) 240 K/uL (140-450); RED BLOOD CELL COUNT(AUTO) 2.63 MIL/uL (4.20-6.10); RED CELL DISTRIBUTION WIDTH 14.2 % (11.6-13.7); WHITE BLOOD COUNT (AUTO) 7.9 K/uL (4.8-10.8)
[2020-08-27 05:37] LABS: ANION GAP 9.4 (8-16); CARBON DIOXIDE 28.8 mmol/L (21-32); CREATININE 0.8 mg/dL (0.6-1.3); POTASSIUM 3.2 mmol/L (3.5-5.1)
--- NOTE | 2020-08-27 07:00 | NUR ---
CONDITION REMAIN STABLE. WILL ENDORSE TO AM SHIFT NURSE FOR CONTINUITY OF CARE.
--- NOTE | 2020-08-27 07:25 | NUR ---
RECEIVED BEDSIDE REPORT FROM INDIVIDUALIZED EDUCATION PLAN AIDE NURSE. PT IS LAYING IN BED AWAKE AND ORIENTED X1. PT LOOKED AT YOU WHEN YOU TALK TO HIM. PT IS IN RA. PT HAS IV IN RFA 20 GAUGE. WILL CONTINUE TO MONITOR.
[2020-08-27 08:00] VITALS: BP 113/66
[2020-08-27] MEDS ORDERED: POTASSIUM CHLORIDE 10 MEQ TABER PO SCH (08:30)
[2020-08-27] MEDS ORDERED: POTASSIUM CHLORIDE 20% 40 MEQ/15 ML UDC GT SCH (08:30)
[2020-08-27] MEDS: NACL 0.45% 1,000 ML IV SCH (09:01)
[2020-08-27] MEDS: APIXABAN 2.5 MG TAB GT SCH ×2 (09:02→20:14)
[2020-08-27] MEDS: FAMOTIDINE 20 MG TAB GT SCH (09:03)
[2020-08-27] MEDS: ASPIRIN 81 MG TAB.CHEW GT SCH (09:03)
[2020-08-27] MEDS: DOCUSATE 100 MG/10 ML UDC GT SCH (09:08)
--- NOTE | 2020-08-27 09:15 | NUR ---
PT IS IN SLEEPING IN BED. CHEST RISE IS RISING AND FALLING. NO DISTRESS NOTED. WILL CONTINUE MONITOR
--- NOTE | 2020-08-27 09:20 | NUR ---
(08/27/20) RD FOLLOW UP COMPLETED PLEASE REFER TO NUTRITION PROGRESS NOTE UNDER CARE ACTIVITY FOR ESTIMATED NUTRITION NEEDS. RD RECOMMENDATIONS: CONTINUE NEPRO @ 40 ML/HR WILL PROVIDE 1728 KCALS AND 78 GM PRO/DAY TO MEET 100% ESTIMATED ENERGY AND PROTEIN NEEDS, OKAY TO RESUME PREVIOUS FEEDINGS OF JEVITY 1.2 ONCE RENAL FUNCTION IS NO LONGER A CONCERN RD WILL F/U 2-3 DAYS; HIGH RISK. АЛЕКСАНДР BRIGHT MS, RDN
--- NOTE | 2020-08-27 11:30 | NUR ---
PT IS AWAKE AND ORIENTED X1. PT IS IN BED. PT IS IN RA AND NO DISTRESS NOTED. WILL CONTINUE TO MONITOR.
--- NOTE | 2020-08-27 13:50 | NUR ---
PT IS AWAKE AND ORIENTED X1. PT IS WATCHING TELEVISION. PT IS STABLE AND NO DISTRESS NOTED. WILL CONTINUE TO MONITOR
--- NOTE | 2020-08-27 15:55 | NUR ---
DR. DHALIWAL IS AT BEDSIDE. GAVE ME VERBAL ORDERS TO IRRIGATE URINARY CATHETER 100CC NS BID OR UNTIL CLEAR. PT IS AWAKE AND ORIENTED X1. PT IS STABLE. WILL CONTINUE WITH CARE.
[2020-08-27 16:00] VITALS: BP 139/64
--- NOTE | 2020-08-27 17:30 | NUR ---
PT IS SLEEPING AND SNORING IN SUPINE POSITION. PT IS IN RA. I CAN SEE HIS CHEST RISE AND FALL. IV IS INTACT AND DRY. WILL CONTINUE TO MONITOR.
[2020-08-27] MEDS ORDERED: LORazepam 2 MG/ML VIAL IVP SCH ×2 (19:15→19:25)
--- NOTE | 2020-08-27 19:20 | NUR ---
GAVE BEDSIDE REPORT TO COMPLAINT SPECIALIST NURSE FOR CONTINUITY OF CARE. PT IS WATCHING TELEVISION AND STABLE. NO DISTRESS NOTED.
--- NOTE | 2020-08-27 19:21 | NUR ---
RECEIVED REPORT FROM AM SHIFT NURSE. PT IN BED AWAKE AND RESTING. PT AAOX1, ABLE TO ANSWER YES OR NO QUESTIONS. RESPIRATION EVEN AND UNLABORED TO ROOM AIR. DIMINISHED LUNG SOUNDS NOTED. PT NOT IN DISTRESS. ABDOMEN IS SOFT AND NON-TENDER, ACTIVE BOWEL SOUNDS NOTED. PT WITH GTUBE IN PLACE WITH CONTINUOUS FEEDING. SKIN IS WARM, DRY, AND INTACT. PT WITH HEATH CATHETER IN PLACE DRAINING WELL TO BLOODY URINE. PT WITH IV ACCESS ON LEFT FOREARM G 20 PATENT AND INTACT, IVF INFUSING WELL. PT DENIES ANY PAIN OR DISCOMFORT AT THIS TIME. PT KEPT COMFORTABLE. SAFETY MEASURES IN PLACE. WILL CONTINUE TO MONITOR.
[2020-08-27 20:00] VITALS: BP 102/60
[2020-08-27] MEDS: QUEtiapine FUMARATE 100 MG TAB GT SCH (20:12)
[2020-08-27] MEDS: TAMSULOSIN 0.4 MG CAP PO SCH (20:13)
--- NOTE | 2020-08-27 20:26 | NUR ---
VS STABLE. 0 GTUBE RESIDUAL NOTED. SCHEDULED MEDS GIVEN ORDERED. PT NOT IN DISTRESS. PT TURNED AND REPOSITIONED. PT KEPT COMFORTABLE.
--- NOTE | 2020-08-27 22:06 | NUR ---
PT TURNED AND REPOSITIONED. HEATH CATHETER IRRIGATED TINY CLOTS AND NO RESISTANCE NOTED. WILL CONTINUE TO MONITOR.
--- NOTE | 2020-08-27 23:03 | NUR ---
NEW FEEDING BAG HUNG. FEEDING INFUSING WELL. HOB ELEVATED, ASPIRATION PRECAUTIONS OBSERVED. WILL CONTINUE TO MONITOR.
--- NOTE | 2020-08-28 01:47 | NUR ---
PT ASLEEP. VISIBLE CHEST RISE AND FALL NOTED. NO S/SX OF DISTRESS OR DISCOMFORT NOTED. PT KEPT COMFORTABLE. WILL CONTINUE TO MONITOR.
--- NOTE | 2020-08-28 03:14 | NUR ---
PT TAKEN TO CT
--- NOTE | 2020-08-28 03:25 | NUR ---
PT BACK FROM CT
[2020-08-28 04:00] VITALS: BP 102/56
--- NOTE | 2020-08-28 04:23 | NUR ---
VS STABLE. PT NOT IN DISTRESS. PT TURNED AND REPOSITIONED. PT DENIES PAIN. PT KEPT COMFORTABLE. WILL CONTINUE TO MONITOR.
[2020-08-28] MEDS: PIPERACILLIN/TAZOBACTAM 3.375 GM in DEXTROSE 5% 50 ML IV SCH ×3 (04:44→21:20)
[2020-08-28 06:24] LABS: ANION GAP 10.2 (8-16); CARBON DIOXIDE 29.5 mmol/L (21-32); CREATININE 0.8 mg/dL (0.6-1.3); POTASSIUM 3.7 mmol/L (3.5-5.1)
[2020-08-28] MEDS ORDERED: INSULIN LISPRO SLIDING SCALE 100 UNITS/ML VIAL SUBQ PRN (06:40)
[2020-08-28] MEDS: BLOOD GLUCOSE MONITORING 1 DEV DEV FS SCH ×3 (06:43→18:00)
--- NOTE | 2020-08-28 06:43 | NUR ---
BLOOD SUGAR 103. NO INSULIN COVERAGE NEEDED.
--- NOTE | 2020-08-28 07:06 | NUR ---
REPORT GIVEN TO AM SHIFT NURSE FOR CONTINUITY OF CARE
[2020-08-28] MEDS: NACL 0.45% 1,000 ML IV SCH (07:07)
--- NOTE | 2020-08-28 07:10 | NUR ---
RECEIVED REPORT FROM NIGHT NURSE PT IS ARISTIDESOX1 ON ROOM AIR, TUBE FEEDING NEPHRO AT 40 MLS/HR AND WATERFLUSH 30CC Q6H, SKIN INTACT, IV INTACT ON LEFT FA WITH SODIUM CHLORIDE 0.45% AT 40 MLS/HR.WITH HEATH CATHETER LAST BOWEL MOVEMENT AT 08/28/20 AND LATEST BLOOD SUGAR 100 MG/DL. ON SEIZURE PRECAUTION, SAFETY MEASURES IN PLACE AND CALL LIGHT WITHIN REACH. WILL CONTINUE TO MONITOR.
[2020-08-28 08:00] VITALS: BP 136/66
--- NOTE | 2020-08-28 08:00 | NUR ---
IRRIGATED PT'S HEATH CATHETER PER MD ORDER WITH 100CC'S. IRRIGATION APPEARANCE WAS CLEAR YELLOW WITH SEDIMENT.PT TOLERATED PROCEDURE WELL. WILL CONTINUE TO MONITOR.
[2020-08-28] MEDS: FAMOTIDINE 20 MG TAB GT SCH ×3 (08:17→11:52)
[2020-08-28] MEDS: APIXABAN 2.5 MG TAB GT SCH ×4 (08:17→21:03)
[2020-08-28] MEDS: TAMSULOSIN 0.4 MG CAP PO SCH ×3 (08:18→11:44)
[2020-08-28] MEDS: DOCUSATE 100 MG/10 ML UDC GT SCH ×2 (09:00→11:51)
[2020-08-28] MEDS: ASPIRIN 81 MG TAB.CHEW GT SCH ×2 (09:00→11:44)
--- NOTE | 2020-08-28 10:33 | NUR ---
NOT ABLE TO GIVE SCHEDULED MEDICATIONS DUE TO G TUBE NOT WORKING. WE TRIED UNCLOGGING LINE BUT IT UNSUCCESSFUL. WILL NOTIFY .
--- NOTE | 2020-08-28 11:16 | NUR ---
TALKED TO PHARMACY TO RETRIEVE NON-ADMIN MEDICATIONS DUE TO PEG TUBE BEING OCCLUDED. PEG TUBE RUNNING WELL AND PATENT. WILL CONTINUE TO MONITOR.
--- NOTE | 2020-08-28 12:42 | NUR ---
MEDICATION DUE GIVEN ZOSYN 3.375 GRAMS INFUSING WELL PT IS AWAKE AND ALERT.
--- NOTE | 2020-08-28 13:20 | NUR ---
IV FLUID NORMAL SALINE DISCONTINUED BY AND INCREASED WATER FLUSH TO 150 CC FROM 30 CC. PT IS NOW ON IV LOCK. WILL CONTINUE TO MONITOR.
--- NOTE | 2020-08-28 14:07 | NUR ---
PT. WITH LOW PAWEL SCALE AT HIGH RISK, CONTINUE TO FOLLOW PRESSURE INJURY PREVENTION INTERVENTIONS. -TURN AND REPOSITION PATIENT Q 2H -ASSESS AND MONITOR SKIN CONDITION DURING POSITION CHANGE -OFFLOAD BILATERAL HEELS BY PLACING PILLOWS UNDER CALVES AT ALL TIMES, UNLESS OTHERWISE CONTRAINDICATED -PRESSURE REDISTRIBUTION BY PLACING PILLOWS AND OFFLOADING SACRALCOCCYX -KEEP SKIN CLEAN AND DRY AT ALL TIMES.
[2020-08-28 16:00] VITALS: BP 96/64
--- NOTE | 2020-08-28 17:30 | NUR ---
IRRIGATED HEATH CATHETER WITH 100CC'S PER MD ORDER. URINE OUTPUT WAS CLEAR YELLOW WITH MINIMAL SEDIMENT. SAFETY PRECAUTIONS ARE IN PLACE. CALL LIGHT IS WITHIN REACH. WILL CONTINUE TO MONITOR.
--- NOTE | 2020-08-28 18:21 | NUR ---
INJECTED PT WITH BG LANCET. PT BECAME AGITATED AND SCREAMED"NO MORE" PT DID NOT ALLOW ME TO RETRIEVE BG LEVEL. SAFETY PRECAUTIONS IN PLACE. WILL CONTINUE TO MONITOR.
--- NOTE | 2020-08-28 19:26 | NUR ---
ENDORSED PT TO NIGHT NURSE FOR CONTINUITY OF CARE.PT IS STABLE.
--- NOTE | 2020-08-28 19:27 | NUR ---
Patient's Plan of Care was discussed and reviewed with BISI: ANUSHA
--- NOTE | 2020-08-28 19:27 | NUR ---
RECD. RESTING IN BED, AWAKE, A/OX1. EDENTULOUS, ABLE TO ANSWER SIMPLE QUESTIONS WITH YES OR NO ANSWER. REORIENTED TO HOSPITAL SETTING. RESPIRATION EVEN AND [id number]. O2 SATURATION 93% ON ROOM AIR. SALINE LOCK AT THE LEFT FOREARM G20, PATENT AND INTACT. ON GT FEEDING OF NEPHRO AT 40 ML/HR, GT SITE DRY AND INTACT. F/C PATENT DRAINING CLEAR YELLOW URINE. INCONTINENT TO URINE AND BM. MEDICATIONS AND CARE FOR THE SHIFT DISCUSSED. NEEDS REINFORCEMENT, DENIES PAIN 0/10.
[2020-08-28 20:00] VITALS: BP 125/65
[2020-08-28] MEDS: QUEtiapine FUMARATE 100 MG TAB GT SCH (21:04)
[2020-08-28] MEDS: HYDROcodone/APAP 5/325 MG 1 TAB TAB GT PRN (21:08)
--- NOTE | 2020-08-28 21:08 | NUR ---
ABLE TO VERBALIZED NEEDS, COMPLAINED OF BACK PAIN. MEDICATED PER MD ORDER.
--- NOTE | 2020-08-28 21:30 | NUR ---
MANUALLY IRRIGATED WITH 100 ML NS, NO BLOOD CLOTS NOTED.
--- NOTE | 2020-08-28 22:00 | NUR ---
RESTING COMFORTABLY IN BED, NO COMPLAINT OF PAIN 0/10.
--- NOTE | 2020-08-29 | NUR ---
SLEEPING COMFORTABLY IN BED.
[2020-08-29] MEDS: BLOOD GLUCOSE MONITORING 1 DEV DEV FS SCH ×3 (00:49→11:40)
[2020-08-29] MEDS: HYDROcodone/APAP 5/325 MG 1 TAB TAB GT PRN (01:44)
--- NOTE | 2020-08-29 01:45 | NUR ---
AWAKE, SHOUTING THAT HE HAS BACK PAIN. MEDICATED WITH NORCO PER MD ORDER.
--- NOTE | 2020-08-29 03:00 | NUR ---
SLEEPING COMFORTABLY IN BED, NO APPEARANCE OF PAIN NOTED, FLACC -0.
[2020-08-29] MEDS: PIPERACILLIN/TAZOBACTAM 3.375 GM in DEXTROSE 5% 50 ML IV SCH ×2 (05:22→13:31)
[2020-08-29 05:57] LABS: ALBUMIN 1.9 g/dL (3.4-5.0); ANION GAP 6.8 (8-16); CARBON DIOXIDE 30.7 mmol/L (21-32); CREATININE 0.7 mg/dL (0.6-1.3); MAGNESIUM 1.6 mg/dL (1.8-2.4); PHOSPHORUS 2.9 mg/dL (2.5-4.9); POTASSIUM 3.5 mmol/L (3.5-5.1); TOTAL BILIRUBIN 0.2 mg/dL (0.0-1.0)
--- NOTE | 2020-08-29 06:00 | NUR ---
CONDITION REMAIN STABLE. COMPLAINT OF BACK PAIN ATTENDED PROMPTLY, MEDICATED PER MD ORDER.
[2020-08-29 06:09] LABS: BASOPHILS # (AUTO) 0.1 K/uL (0.00-0.22); BASOPHILS % (AUTO) 0.7 % (0.0-2.0); EOSINOPHILS # (AUTO) 0.3 K/uL (0-0.4); HEMATOCRIT 25.5 % (36-52); HEMOGLOBIN 8.4 g/dL (12.0-18.0); LYMPHOCYTES # (AUTO) 2.3 K/uL (2.0-11.5); LYMPHOCYTES % (AUTO) 24.8 % (20.5-51.1); MEAN CORPUSCULAR HEMOGLOBIN 34 pg (27-31); MEAN CORPUSCULAR HGB CONC 33 g/dL (33-37); MEAN CORPUSCULAR VOLUME 101.7 fL (80-94); MONOCYTES # (AUTO) 1.6 K/uL (0.8-1.0); MONOCYTES % (AUTO) 17.4 % (1.7-9.3); NEUTROPHILS # (AUTO) 4.9 K/uL (1.8-7.7); NEUTROPHILS % (AUTO) 54.1 % (42.2-75.2); PLATELET COUNT (AUTO) 273 K/uL (140-450); RED BLOOD CELL COUNT(AUTO) 2.51 MIL/uL (4.20-6.10); RED CELL DISTRIBUTION WIDTH 14.6 % (11.6-13.7); WHITE BLOOD COUNT (AUTO) 9.1 K/uL (4.8-10.8)
--- NOTE | 2020-08-29 07:30 | NUR ---
ENDORSED TO AM SHIFT NURSE FOR CONTINUITY OF CARE.
--- NOTE | 2020-08-29 07:32 | NUR ---
RECEIVED REPORT FROM NIGHT NURSE. INTRODUCED MYSELF TO PT AND UPDATED WHITE BOARD WITH GOALS. REVIEWED PLAN OF CARE. SAFETY PROTOCOLS ARE IN PLACE. WILL CONTINUE PLAN OF CARE. CALL LIGHT IS WITHIN REACH WILL CONTINUE TO MONITOR.
[2020-08-29 08:00] VITALS: BP 120/69
[2020-08-29] MEDS: FAMOTIDINE 20 MG TAB GT SCH (08:50)
[2020-08-29] MEDS: ASPIRIN 81 MG TAB.CHEW GT SCH (08:50)
[2020-08-29] MEDS: TAMSULOSIN 0.4 MG CAP PO SCH (08:51)
[2020-08-29] MEDS: APIXABAN 2.5 MG TAB GT SCH (08:53)
[2020-08-29] MEDS: DOCUSATE 100 MG/10 ML UDC GT SCH (08:53)
[2020-08-29] MEDS ORDERED: MAG SULF 2000 MG/WATER PREMIX 50 ML IV SCH (09:00)
--- NOTE | 2020-08-29 09:19 | NUR ---
NO RESIDUALS FROM PEG TUBE NOTED. ADMINISTERED SCHEDULED MEDICATIONS PER MD ORDER. WILL CONTINUE TO MONITOR.
--- NOTE | 2020-08-29 11:40 | NUR ---
BLOOD GLUCOSE WAS ASSESSED AND IT WAS 110MG/DL. NO INSULIN COVERAGE NEEDED PER PROTOCOL. PT IS NOT IN DISTRESS. CALL LIGHT IS WITHIN REACH. WILL CONTINUE TO MONITOR.
--- NOTE | 2020-08-29 12:35 | NUR ---
HEATH CATHETER REMOVED PER MD ORDER, 400ML BLOODY URINE NOTED. PATIENT TOLERATED WELL, WILL CONTINUE TO MONITOR.
--- NOTE | 2020-08-29 13:36 | NUR ---
HANG NEW BOTTLE OF NEPRO. PATIENT ASLEEP IN BED COMFORTABLY. WILL CONTINUE TO MONITOR.
--- NOTE | 2020-08-29 14:18 | NUR ---
SPOKE WITH RASHMI/ AIRPORT CONTROL OPERATOR OF [facility], INFORM HER PATIENT IS BEING DISCHARGED. PER RASHMI, WILL CALL BACK AND INFORM THE ETA OF [employer] MACHINE TIME. WILL FOLLOW UP.
--- NOTE | 2020-08-29 17:05 | NUR ---
PATIENT BEEN PICKED UP BY THE TRANSPORT AND GOING BACK TO [facility]. PATIENT IN STABLE CONDITION. ALL BELONGINGS TAKEN. DISCHARGE PROTOCOL FOLLOWED.
== END 2020-08-29 17:00 | disposition home or self-care (01) | DRG 871 ==
LOC: MED 09:50 → MTU 11:54
PROVIDERS: ADMIT Preventive Medicine Preventive Medicine/Occupational Environmental Medicine; ATTEND Preventive Medicine Preventive Medicine/Occupational Environmental Medicine
DX: A41.9 Sepsis, unspecified organism (principal); E43 Unspecified severe protein-calorie malnutrition; G92 Toxic encephalopathy; J96.00 Acute respiratory failure, unspecified whether with hypoxia or hypercapnia; N13.6 Pyonephrosis; M48.56XA Collapsed vertebra, not elsewhere classified, lumbar region, initial encounter for fracture; N17.9 Acute kidney failure, unspecified; Z20.822 Contact with and (suspected) exposure to COVID-19; D63.8 Anemia in other chronic diseases classified elsewhere; E11.22 Type 2 diabetes mellitus with diabetic chronic kidney disease; N18.9 Chronic kidney disease, unspecified; F03.90 Unspecified dementia, unspecified severity, without behavioral disturbance, psychotic disturbance, mood disturbance, and anxiety; I12.9 Hypertensive chronic kidney disease with stage 1 through stage 4 chronic kidney disease, or unspecified chronic kidney disease; I25.10 Atherosclerotic heart disease of native coronary artery without angina pectoris; Z86.73 Personal history of transient ischemic attack (TIA), and cerebral infarction without residual deficits; G40.909 Epilepsy, unspecified, not intractable, without status epilepticus; Z93.1 Gastrostomy status; E83.52 Hypercalcemia; E11.21 Type 2 diabetes mellitus with diabetic nephropathy; G80.9 Cerebral palsy, unspecified; E11.65 Type 2 diabetes mellitus with hyperglycemia; R79.89 Other specified abnormal findings of blood chemistry; R13.10 Dysphagia, unspecified; R74.01 Elevation of levels of liver transaminase levels; E83.42 Hypomagnesemia; Z89.511 Acquired absence of right leg below knee; Z68.24 Body mass index [BMI] 24.0-24.9, adult
CPT/HCPCS: 36415; 36600; 70450; 71045; 80048; 80053; 81001; 82550; 82803; 82948; 83605; 83735; 83880; 84100; 84154; 84484; 85025; 85610; 85651; 85730; 86140; 87040; 87081; 87086; 93005; 96361; 96365; 99285; G0480; G0482; J0696; J2060; J2543; J3475; J7060

== ENCOUNTER 2020-11-04 22:09 | Inpatient (IN) | payer OTHER, MEDICAID ==
[~2020-11-04] VITALS: Ht 170.2 cm; Wt 76.7 kg
[~2020-11-04 22:09] MED LIST changes: +ASPI-1822 GT; +BISA-218 RC; -CEPH250C16 PO; +COL100L GT; -HUM SUBQ; +LORA-476 PO; -MID5 GT; +MIRABULK GT; +MULT9LIQ GT; +PRO5 PO; +PRON INH; -VALP250S5 GT
[2020-11-04 22:45] VITALS: BP 100/44
--- NOTE | 2020-11-04 22:45 | NUR ---
PT TRIAGED FROM AMBULANCE. PT TO HOLD FOR BED.
--- NOTE | 2020-11-04 22:48 | NUR ---
70 YO/M BIBA FROM [facility] D/T FEVER X3 DAYS, HAS BEEN EATING AND DRINKING WELL, REPORTS TACHYCARDIC, PER [facility]. PATIENT PRESENT GCS 11, NON-VERBAL W SOME MUMBLING (BASELINE PER [facility]). PATIENT AWAKE, PERRL, S1 S2 PRESENT, +2 RADIAL AND PEDAL PULSES, SKIN WARM AND DRY, CRACKLES AUSCULTATED THROUGH OUT LUNG SANDERS, BREATHING EVEN AND UNLABORED, PATIENT HAS G TUBE, BOWEL SOUNDS PRESENT. AXILLARY TEMP 99.2 F. CONNECTED TO MONITOR , 98HR, 98 O2 ON ROOM AIR, 19RR, 100/44BP. PATIENT LAYING IN BED LOCKED IN LOWEST POSITION W X2 SIDERAILS UP FOR PATIENT SAFETY. HOB SLIGHTLY ELEVATED. NAD NOTED, WILL CONTINUE TO MONITOR. PMH: CEREBRAL PALSY, HTN, DM NKA
--- NOTE | 2020-11-04 23:20 | NUR ---
JASON MELCHOR - [facility] [phone]
--- NOTE | 2020-11-04 23:31 | NUR ---
BIBA TO ER BED 6
[2020-11-04] MEDS ORDERED: NACL 0.9% 1,000 ML IV ONE (23:35)
[2020-11-04] MEDS ORDERED: NACL 0.9% 1,000 ML IV SCH (23:35)
[2020-11-05 00:04] LABS: BASOPHILS % (AUTO) 0.5 % (0.0-2.0); EOSINOPHILS % (AUTO) 0.1 % (0.0-4.0); HEMATOCRIT 30.1 % (36-52); LYMPHOCYTES # (AUTO) 1.3 K/uL (2.0-11.5); LYMPHOCYTES % (AUTO) 22.9 % (20.5-51.1); MEAN CORPUSCULAR HEMOGLOBIN 33 pg (27-31); MEAN CORPUSCULAR HGB CONC 33 g/dL (33-37); MONOCYTES # (AUTO) 1.3 K/uL (0.8-1.0); MONOCYTES % (AUTO) 21.6 % (1.7-9.3); NEUTROPHILS # (AUTO) 3.2 K/uL (1.8-7.7); NEUTROPHILS % (AUTO) 54.9 % (42.2-75.2); PLATELET COUNT (AUTO) 156 K/uL (140-450); RED BLOOD CELL COUNT(AUTO) 3.07 MIL/uL (4.20-6.10); WHITE BLOOD COUNT (AUTO) 5.9 K/uL (4.8-10.8)
[2020-11-05] MEDS ORDERED: cefTRIAXone 500 MG VIAL ONE (00:09)
[2020-11-05 00:21] LABS: PROTHROMBIN TIME 11.2 secs (10.8-13.4)
[2020-11-05 00:23] LABS: ALBUMIN 2.4 g/dL (3.4-5.0); ANION GAP 9.4 (8-16); CARBON DIOXIDE 29.3 mmol/L (21-32); CREATININE 0.9 mg/dL (0.6-1.3); POTASSIUM 4.7 mmol/L (3.5-5.1); TOTAL BILIRUBIN 0.2 mg/dL (0.0-1.0)
--- NOTE | 2020-11-05 01:20 | NUR ---
900 ML CLEAR YELLOW URINE OBTAINED VIA STRAIGHT CATH, SAMPLE SENT TO LAB.
--- NOTE | 2020-11-05 02:00 | NUR ---
PATIENT O2 SAT AT 85% PLACED ON 2L MC, ERMD AWARE.
--- NOTE | 2020-11-05 02:00 | NUR ---
IV INFILTRATED, ERMD AWARE. CHARGE NURSE AWARE. CHARGE NURSE WILL SEE PATIENT. FLUIDS PAUSED.
--- NOTE | 2020-11-05 02:10 | NUR ---
Note chelsea in EDM - 11/05/20 at 0212 by SOURAV PATIENT LAYING IN BED LOCKED IN LOWEST POSITION W X2 SIDERAILS UP FOR PATIENT SAFETY. PATIENT APPEARS TO BE RESTING W EYES CLOSED. BREATHING EVEN AND UNLABORED. PATIENT CONNECTED TO MONITOR W VSS. NAD NOTED, WILL CONTINUE TO MONITOR.
[2020-11-05 02:36] LABS: APPEARANCE,URINE HAZY (CLEAR); BILIRUBIN,URINE NEGATIVE (NEGATIVE); BLOOD, URINE 1+ (NEGATIVE); COLOR,URINE YELLOW (YELLOW); LEUKOCYTE ESTERASE ,URINE 3+ (NEGATIVE); NITRITE, URINE NEGATIVE (NEGATIVE); UGLUCOSE NEGATIVE (NEGATIVE)
[2020-11-05 02:38] LABS: RBC,URINE 0-5 /HPF (0-5); WBC,URINE TOO MANY TO COUNT /HPF (0-5)
--- NOTE | 2020-11-05 02:45 | NUR ---
PATIENT RECTAL TEMP AT 101.9. ERMD AWARE.
[2020-11-05] MEDS ORDERED: ACETAMINOPHEN 325 MG TAB GT ONE (02:50)
--- NOTE | 2020-11-05 02:50 | NUR ---
COOLING METHODS APPLIED TO PATIENT W COOL COMPRESES.
[2020-11-05] MEDS ORDERED: CRUSHER, PILL MC ONE (03:15)
--- NOTE | 2020-11-05 03:50 | NUR ---
IV ESTABLISHED BY DAVE POLO. 0.9 NS BOLUS CONTINUED W 1500ML VTBI.
--- NOTE | 2020-11-05 05:13 | NUR ---
PATIENT LAYING IN BED W EYES CLOSED, HOB ELEVATED. BED LOCKED IN LOWEST POSITION. BREATHING EVEN AND UNLABORED. CONNECTED TO MONITOR W VSS. NAD NOTED, WILL CONTNUE TO MONITOR.
[2020-11-05] MEDS ORDERED: DEXT 5% / NACL 0.9% 500 ML IV ONE (06:20)
[2020-11-05] MEDS ORDERED: DEXT 5% / NACL 0.45% 1,000 ML IV ONE (06:25)
--- NOTE | 2020-11-05 06:30 | NUR ---
COOLING METHODS APPLIED TO PATIENT W COOL COMPRESES.
--- NOTE | 2020-11-05 06:40 | NUR ---
CONTACTED DR. DOWNEY FOR PATIENT RECTAL TEMP 102.2. PER DR. DOWNEY ADMIN 650MG TYLENOL GT Q6H PRN.
[2020-11-05] MEDS: ACETAMINOPHEN 325 MG TAB GT PRN ×2 (07:06→12:30)
--- NOTE | 2020-11-05 07:25 | NUR ---
REPORT RECEIVED FROM DAVE NUÑEZ. TRANSFER OF CARE RECEIVED
--- NOTE | 2020-11-05 07:25 | NUR ---
Pt report given to DAVE MUNROE. Transfer of care at this time.
--- NOTE | 2020-11-05 08:38 | NUR ---
ATTEMPTED TO CALL [facility] FOR MEDICATION LIST, NO ANSWER. LEFT MESSAGE MED LIST WAS NOT ATTACHED WITH PACKET FROM FACILITY.
--- NOTE | 2020-11-05 08:57 | NUR ---
PT CLEANED AND PROVIDED WITH FRESH LINEN BEDSIDE. CURRENT RECTAL TEMP IS 100.7. PLACED ICE PAKCS IN PT GROIN AREA TO HELP LOWER TEMP. VITAL SIGNS STABLE AND WILL CONTINUE TO MONITOR
--- NOTE | 2020-11-05 09:05 | NUR ---
RECEIVED REPORT FROM ER NURSE OVER THE PHONE. AWAITING FOR PATIENT ARRIVAL TO THE UNIT.
--- NOTE | 2020-11-05 09:09 | NUR ---
Patient will be admitted to care of DR. DOWNEY. Admited to TELE. Will go to room 104A. Belongings list completed. Report to DAVE DHILLON. Addendum: 11/05/20 at 0939 by [email or web address] Michelle ARELLANO TAKEN TO ROOM AT 0938
[2020-11-05 09:30] VITALS: BP 148/75
--- NOTE | 2020-11-05 09:30 | NUR ---
RECEIVED PATIENT FROM ER NURSE VIA JOSE. PT IS AOX1, APHASIC. RESPIRATIONS EVEN AND UNLABORED. ON 3 L NC O2 SATURATION AT 100% WITH NO DISTRESS NOTED. SKIN IS WARM, DRY, AND INTACT. IV SITE ON RFA 22G INTACT AND PATENT. INFUSING D5 1/2NS @100 ML/HR. ABD SOFT, FLAT, AND NON-DISTENDED. BOWEL SOUNDS ACTIVE IN ALL QUADRANTS. HAS G-TUBE IN PLACE. NO RESIDUAL NOTED. SAFETY PRECAUTIONS IN PLACE. BED IN LOW POSITION. CALL LIGHT WITHIN REACH. WILL CONTINUE TO MONITOR.
--- NOTE | 2020-11-05 09:55 | NUR ---
PATIENT HAS BEEN SCREENED AND CATEGORIZED MODERATE NUTRITION RISK. PATIENT WILL BE SEEN WITHIN 3-5 DAYS OF ADMISSION. 11/07/20-11/09/[address]
[2020-11-05 12:00] VITALS: BP 121/61
--- NOTE | 2020-11-05 12:30 | NUR ---
PATIENT'S TEMP WAS AT 101.4. ADMINISTERED TYLENOL PRN AND PLACE COOLING MEASURES.
--- NOTE | 2020-11-05 13:30 | NUR ---
REASSESS TEMPERATURE. TEMP IS 97.7. AFEBRILE AND NO DISTRESS NOTED. WILL CONTINUE TO MONITOR.
--- NOTE | 2020-11-05 15:04 | NUR ---
DC PLANNING 70 YRS OLD MALE PATIENT WAS ADMITTED FROM [facility] WITH A DX OF UTI AND SEPSIS. PT HAS A HX OF CEREBRAL PALSY, CARDIAC DISORDER SZ, HTN, AND DM. CXR SHOWED MINIMAL BASAL SUBSEGMENTAL ATELECTASIS. RAPID COVID TEST NEGATIVE INFLUENZA A&B NEGATIVE. ADMINISTERED IVF, IV ABX ROCEPHIN AND CONTINUED HOME MEDS . CONSULTED WITH ID DR EARLY. DC PLAN TO RETURN BACK TO [facility]. CM TO FOLLOW Addendum: 11/08/20 at 1119 by Lauren Bartholomew RN DC PLANNING: CALLED DR NASREEN Gaines DISCUSSED THE DC PLAN FOR PATIENT PER AWAITING FOR SPUTUM CULTURE , FOR MDRO PT CAN GET LEVAQUIN PER G-TUBE. CM TO FOLLOW
--- NOTE | 2020-11-05 15:10 | NUR ---
CHECKED ON PATIENT. PATIENT IS STABLE. NO DISTRESS NOTED. WILL CONTINUE TO MONITOR.
--- NOTE | 2020-11-05 15:56 | NUR ---
11/05/2020 RD INITIAL ASSESSMENT COMPLETED PLEASE REFER TO NUTRITION ASSESSMENT UNDER CARE ACTIVITY FOR ESTIMATED NUTRITIONAL NEEDS. PT CURRENTLY NPO, ONCE MEDICALLY APPROPRIATE, PLEASE CONSIDER: GLUCERNA 1.2 @ 65 ML/HR X 24 HRS WITH 250 ML FREE WATER Q [address] TO FOLLOW-UP IN 3-5 DAYS PATIENT IS MODERATE RISK. TIRSO TRUJILLO RD Addendum: 11/05/20 at [address] PROVIDED RECOMMENDATION NOTE TO ALEJO ACOSTA
[2020-11-05 16:00] VITALS: BP 119/50
--- NOTE | 2020-11-05 17:45 | NUR ---
CHECKED ON PATIENT. PATIENT IS ASLEEP. NOTED CHEST RISE AND FALL. NO S/S OF DISTRESS NOTED. WILL CONTINUE TO MONITOR.
--- NOTE | 2020-11-05 19:30 | NUR ---
PATIENT RECEIVED IN BED. PT IS AOX1, APHASIC. RESPIRATIONS EVEN AND UNLABORED. ON 3 L NC O2 SATURATION AT 100% WITH NO DISTRESS NOTED. SKIN IS WARM, DRY, AND INTACT. IV SITE ON RFA 22G INTACT AND PATENT. ABD SOFT, FLAT, AND NON-DISTENDED. BOWEL SOUNDS ACTIVE IN ALL QUADRANTS. HAS G-TUBE IN PLACE.GLUCERNA 1.2 @ 65CC/HR. NO RESIDUAL NOTED. MEDICATION REGIMEN CONTINUED WITH NO ADVERSE EFFECTS NOTED. SAFETY PRECAUTIONS IN PLACE. BED IN LOW POSITION. FALL AND SAFETY PRECAUTIONS ONGOING. CALL LIGHT WITHIN REACH. WILL CONTINUE TO MONITOR. NO ACUTE DISTRESS NOTED.
--- NOTE | 2020-11-05 19:30 | NUR ---
ENDORSED TO OCULAR CARE TECHNICIAN NURSE FOR CONTINUITY OF CARE. PT IS STABLE.
[2020-11-05 20:00] VITALS: BP 126/50
--- NOTE | 2020-11-05 22:00 | NUR ---
MESSSAGED DR. DOWNEY REGARDING RN REQUEST G TUBE INSERTION NEEDED. NOTIFIED CHARGE NURSE OF RN REQUEST FOR FOLLOW UP.
[2020-11-06] VITALS: BP 116/50
[2020-11-06 04:00] VITALS: BP 122/50
--- NOTE | 2020-11-06 05:44 | NUR ---
PATIENT SLEEPING DURING ROUNDING. EASILY AROUSED. MAXIMAL CARE RENDERED. NO ACUTE DISTRESS NOTED.
[2020-11-06 07:04] LABS: BASOPHILS # (AUTO) 0.1 K/uL (0.00-0.22); HEMATOCRIT 30.4 % (36-52); LYMPHOCYTES # (AUTO) 1.4 K/uL (2.0-11.5); LYMPHOCYTES % (AUTO) 20.1 % (20.5-51.1); MEAN CORPUSCULAR HEMOGLOBIN 32 pg (27-31); MEAN CORPUSCULAR HGB CONC 33 g/dL (33-37); MEAN CORPUSCULAR VOLUME 97.7 fL (80-94); MONOCYTES % (AUTO) 27.6 % (1.7-9.3); NEUTROPHILS # (AUTO) 3.6 K/uL (1.8-7.7); NEUTROPHILS % (AUTO) 51.3 % (42.2-75.2); PLATELET COUNT (AUTO) 153 K/uL (140-450); RED BLOOD CELL COUNT(AUTO) 3.11 MIL/uL (4.20-6.10); RED CELL DISTRIBUTION WIDTH 15.8 % (11.6-13.7); WHITE BLOOD COUNT (AUTO) 7.1 K/uL (4.8-10.8)
--- NOTE | 2020-11-06 07:21 | NUR ---
PT ENDORSED BY DAMPPROOFER NURSE FOR CONTINUITY OF CARE, POC DISCUSSED. PT IS A&OX1. PT CURRENTLY IS ON 3L NC WITH CRACKLES IN LUNGS, ON TELE MONITOR SHOWING SINUS TACH AT 110. PT SKIN IS WARM, DRY AND INTACT WITH A RFA 22G SALINE LOCK. PT HAS A G-TUBE, GLUCERNA AT BEDSIDE, NO TUBE FEEDING MACHINE AT BEDSIDE. WILL FOLLOW UP. PT SHOWS NO ACUTE S/S OR SOB. ALL SAFETY MEASURES IN PLACE, CALL LIGHT WITHIN REACH. WILL CONTINUE TO MONITOR.
--- NOTE | 2020-11-06 07:45 | NUR ---
HOUSE SUP NOTIFIED OF NEEDING A TUBE FEEDING MACHINE, WILL FOLLOW UP.
[2020-11-06 08:00] VITALS: BP 142/78
[2020-11-06 08:23] LABS: ANION GAP 12.7 (8-16); CARBON DIOXIDE 24.2 mmol/L (21-32); CREATININE 0.6 mg/dL (0.6-1.3); POTASSIUM 3.9 mmol/L (3.5-5.1)
--- NOTE | 2020-11-06 09:34 | NUR ---
ROUNDED ON PT, PT IS ASLEEP IN BED WITH NO S/S OF ACUTE DISTRESS. CHEST RISING AND FALLING EVEN AND UNLABORED. PT ABLE TO OPEN EYES TO HIS NAME. ALOC NOTED. ALL SAFETY MEASURES IN PLACE. WILL CONTINUE TO MONITOR.
--- NOTE | 2020-11-06 09:45 | NUR ---
NO TUBE FEEDING MACHINE AVAILABLE NOW, WILL CONTINUE TO FOLLOW UP.
--- NOTE | 2020-11-06 10:30 | NUR ---
PT IS ASLEEP IN BED WITH NO ACUTE S/S PF DISTRESS OR SOB. ALL SAFETY MEASURES IN PLACE, WILL CONTINUE TO MONITOR.
[2020-11-06 12:00] VITALS: BP 119/70
--- NOTE | 2020-11-06 12:41 | NUR ---
GLUCERNA 1.2 STARTED; RATE 65 ML/HR, 250 ML/HR FLUSHES.NO RESIDUAL PRIOR TO START. PT IS STABLE WITH NO ACUTE S/S OF DISTRESS OR SOB. ALL SAFETY MEASURES IN PLACE, CALL LIGHT WITHIN REACH. WILL CONTINUE TO MONITOR.
--- NOTE | 2020-11-06 13:12 | NUR ---
Discharge Planning Patient is a 70 year old male admitted on 11/05/2020 in the [facility]/ER due to UTI and high fever. SW met patient at bedside he was awake and alert however patient is non- verbal with developmental delays and unable to express his needs and wants. MARY ALICE contacted Bianca Murray with [facility] in [facility] at per Bianca patient will be returning back to their facility after discharge from [facility] and she will be arranging transportation for patient. Bianca Odell Facility head well puller and collection supervisor provided patient's IRC/Worker contact Ofelia Juancarlos at . SW called IRC/worker to discuss patients collateral information.Per Ofelia patient has family in [place], a brother Kannan Epstein , nephew Anival Epstein which are not involved with patient and his care. Patient is conserved and all medical decisions are made by IRC/Worker Ofelia Almanzar. per IRC worker patient is to return to the same facility after he is stable and ready for discharge form current hospitalization at [facility]. transportation will be arrange by Bianca clerk supervisor and head well puller. patient is on dependent care, all his equipment and medications are provided by the facility and medical care providers.
--- NOTE | 2020-11-06 14:34 | NUR ---
PT HAS BEEN CLEANED AND REPOSITIONED. PT IS STABLE WITH NO ACUTE S/S OF DISTRESS. ALL SAFETY MEASURES IN PLACE, CALL LIGHT WITHIN REACH. WILL CONTINUE TO MONITOR.
[2020-11-06 16:00] VITALS: BP 135/75
--- NOTE | 2020-11-06 16:21 | NUR ---
PT HAS BEEN CLEANED AND REPOSITIONED
[2020-11-06] MEDS ORDERED: LORazepam 1 MG TAB GT PRN (16:55)
[2020-11-06] MEDS ORDERED: POLYETHYLENE GLYCOL 17 GM/PKT GT PRN (16:55)
[2020-11-06] MEDS ORDERED: ALBUTEROL 0.083% 2.5 MG/3 ML NEBU INH PRN (16:55)
[2020-11-06] MEDS ORDERED: bisacodyL 10 MG SUPP RC PRN (16:55)
--- NOTE | 2020-11-06 17:34 | NUR ---
PT IS STABLE RESTING IN BED WITH NO ACUTE S/S OF DISTRESS, ALL SAFETY MEASURES IN PLACE. WILL CONTINUE TO MONITOR.
--- NOTE | 2020-11-06 17:38 | NUR ---
PHARMACY CALLED STATING THEY DO NOT CARRY POT BICARBONATE, NOTIFIED MD. GLOVER NEW ORDER FOR POTASSIUM CHLORIDE PO 10MEQ Q8HR.
--- NOTE | 2020-11-06 18:58 | NUR ---
PT HAS BEEN ENDORSED TO SUPERVISOR TELEPHONE CLERKS NURSE IN STABLE CONDITION. POC DISCUSSED.
--- NOTE | 2020-11-06 19:05 | NUR ---
RECD. RESTING IN BED, AWAKE, ALERT, ORIENTED X1, ABLE TO OBEY SIMPLE COMMANDS, ANSWER WITH YES/NO. REORIENTEDTO HOSPITAL SETTING. IV OF SALINE LOCK AT THE RIGHT FOREARM G22, PATENT AND INTACT. GT FEEDING OF GLUCERNA 1.2 INFUSING AT 65 ML/HR. GT SITE DRY AND INTACT. INCONTINENT, SAFETY MEASURES ENFORCED. DENIES PAIN 0/10.
[2020-11-06] MEDS: QUEtiapine FUMARATE 100 MG TAB GT SCH (20:47)
[2020-11-06] MEDS: POTASSIUM CHLORIDE 10 MEQ TABER PO SCH (20:48)
[2020-11-06] MEDS: FAMOTIDINE 20 MG TAB NG SCH (20:48)
[2020-11-06] MEDS: MIDODRINE 5 MG TAB PO SCH (20:49)
[2020-11-06] MEDS: APIXABAN 2.5 MG TAB GT SCH (20:52)
--- NOTE | 2020-11-06 20:52 | NUR ---
SCHEDULED MEDICATIONS FOR THE NIGHT ADMINISTERED VIA GT. TOLERATED WELL.
[2020-11-06] MEDS ORDERED: POTASSIUM BICARBONATE PO SCH (21:00)
[2020-11-06] MEDS ORDERED: CIT AC PO SCH (21:00)
[2020-11-06] MEDS ORDERED: NON-FORMULARY ITEM (Famotidine 20 MG) GT SCH (21:00)
--- NOTE | 2020-11-06 23:00 | NUR ---
HAD MODERATE AMOUNT OF BM, BROWN COLOR. CLEANSED AND REPOSITIONED IN BED WITH PILLOWS.
--- NOTE | 2020-11-07 01:00 | NUR ---
SLEEPING COMFORTABLY IN BED.
--- NOTE | 2020-11-07 03:00 | NUR ---
IN SUPINE POSITION. RESPIRATION EVEN AND UNLABORED. COMFORTABLY SLEEPING IN BED.
[2020-11-07 04:00] VITALS: BP 103/63
[2020-11-07] MEDS: POTASSIUM CHLORIDE 10 MEQ TABER PO SCH ×3 (06:46→20:52)
[2020-11-07] MEDS: MIDODRINE 5 MG TAB PO SCH ×3 (06:46→20:52)
--- NOTE | 2020-11-07 07:19 | NUR ---
CONDITION REMAIN STABLE. ENDORSED TO AM SHIFT NURSE FOR CONTINUITY OF CARE.
--- NOTE | 2020-11-07 07:20 | NUR ---
RECEIVED REPORT FROM NIGHT NURSE PATIENT IS SLEEPING ON 3LPM NC SATURATING AT 95-96%, ON TUBE FEEDING, BED BOUND, INCONTINENT, LAST BOWEL MOVEMENT ON 11/07/20, SKIN INTACT IV INTACT ON RIGHT FA SALINE LOCK. SAFETY MEASURES IN PLACE AND CALL LIGHT WITHIN REACH. WILL CONTINUE TO MONITOR.
[2020-11-07 07:37] LABS: HEMOGLOBIN 9.7 g/dL (12.0-18.0); MEAN CORPUSCULAR HEMOGLOBIN 33 pg (27-31); MEAN CORPUSCULAR HGB CONC 32 g/dL (33-37); MEAN CORPUSCULAR VOLUME 100.8 fL (80-94); PLATELET COUNT (AUTO) 143 K/uL (140-450); RED BLOOD CELL COUNT(AUTO) 2.98 MIL/uL (4.20-6.10); RED CELL DISTRIBUTION WIDTH 15.7 % (11.6-13.7)
[2020-11-07 08:00] VITALS: BP 101/66
[2020-11-07] MEDS: ASPIRIN 81 MG TAB.CHEW GT SCH (08:42)
[2020-11-07] MEDS: DOCUSATE 100 MG/10 ML UDC GT SCH (08:42)
[2020-11-07] MEDS: FAMOTIDINE 20 MG TAB NG SCH ×2 (08:42→20:51)
[2020-11-07] MEDS: MULTIVITAMIN/MINERALS 15 ML UDBTL GT SCH (08:43)
[2020-11-07] MEDS: APIXABAN 2.5 MG TAB GT SCH ×2 (08:45→20:56)
[2020-11-07 08:48] LABS: ALBUMIN 2.2 g/dL (3.4-5.0); ANION GAP 11.9 (8-16); CARBON DIOXIDE 29.2 mmol/L (21-32); CREATININE 0.8 mg/dL (0.6-1.3); MAGNESIUM 2.1 mg/dL (1.8-2.4); PHOSPHORUS 3.1 mg/dL (2.5-4.9); POTASSIUM 4.1 mmol/L (3.5-5.1); TOTAL BILIRUBIN 0.1 mg/dL (0.0-1.0)
--- NOTE | 2020-11-07 08:54 | NUR ---
ADMINISTERED SCHEDULED MEDICATION CHECK VITAL SIGNS BP 101/66 OH 79 NO RESIDUAL VOLUME NO DISTRESS NOTED PT TOLERATED TUBE FEEDING. WILL CONTINUE TO MONITOR.
[2020-11-07 09:36] LABS: MONOCYTES % (MANUAL) 25 % (5-12)
[2020-11-07 09:38] LABS: LYMPHOCYTES % (MANUAL) 20 % (20-46)
--- NOTE | 2020-11-07 13:05 | NUR ---
ADMINISTERED SCHEDULED MEDICATION MIDODRINE 5 MG HELD PT VITAL SIGNS BP 128/63 UT 77. PT TOLERATED WELL.
[2020-11-07 16:00] VITALS: BP 119/59
--- NOTE | 2020-11-07 17:30 | NUR ---
PT WAS SEEN FOR DYSPHAGIA. PT WAS ABLE TO SAFELY SWALLOW PUREE IET WITH NECTAR THICK LIQUID WITHOUT S/S OF ASPIRATION. PT HAD MILD COUGH FOR THIN LIQUID. RECOMMENDATION PUREE DIET WITH NTL.
--- NOTE | 2020-11-07 17:45 | NUR ---
PATIENT SEEN BY SPEECH THERAPIST AND SWALLOW EVAL DONE RECOMMENDED PUREE DIET WITH NECTAR THICK LIQUID.
--- NOTE | 2020-11-07 19:14 | NUR ---
ENDORSED TO NIGHT NURSE FOR CONTINUITY OF CARE. PT IS STABLE.
--- NOTE | 2020-11-07 19:15 | NUR ---
RECD. RESTING IN BED, AWAKE, A/OX2, ABLE TO VERBALIZED NEEDS. ON 02 AT 2 LITERS VIA N/C, SATURATION AT 100%. RESPIRATION EVEN AND UNLABORED. IV OF NS INFUSING AT TKO RIGHT HAND G22. ON GT FEEDING OF JEVITY 1.2 INFUSING AT 65 ML/HR. SAFETY MEASURES ENFORCED. BED IN THE LOWEST POSITION, CALL LIGHT IN REACH. DENIES PAIN 0/10.
[2020-11-07 20:00] VITALS: BP 131/64
[2020-11-07] MEDS: QUEtiapine FUMARATE 100 MG TAB GT SCH (20:51)
--- NOTE | 2020-11-07 20:52 | NUR ---
PATIENT WATCHING TV. ADMINISTERED SCHEDULED MEDICATIONS FOR THE NIGHT.
--- NOTE | 2020-11-07 21:00 | NUR ---
WITH MODERATE AMOUNT OF LOOSE BM, YELLOWISH COLOR. CLEANSED AND DIAPER CHANGED.
--- NOTE | 2020-11-08 | NUR ---
SLEEPING COMFORTABLY IN BED. NO SOB NOTED.
[2020-11-08] MEDS ORDERED: cefTRIAXone 1,000 MG VIAL ONE (02:00)
--- NOTE | 2020-11-08 02:00 | NUR ---
IV INFILTRATED. NEW IV INSERTED BY CHARGE NURSE MJ, RIGHT FOREARM G22.
--- NOTE | 2020-11-08 04:30 | NUR ---
WITH MODERATE LOOSE BM, CLEANSED AND DIAPER CHANGED.
[2020-11-08 05:00] VITALS: BP 117/74
--- NOTE | 2020-11-08 06:20 | NUR ---
CONFUSED, SHOUTING. REORIENTED TO HOSPITAL SETTING.
--- NOTE | 2020-11-08 06:40 | NUR ---
WITH MODERATE NOSE BLEEDING. INSTRUCTED PATIENT NOT TO SHOUT AND TRY TO RELAX. APPLIED COLD COMPRESS. BP TAKEN - 124/64, HR - 99.
[2020-11-08] MEDS: POTASSIUM CHLORIDE 10 MEQ TABER PO SCH ×2 (06:49→13:10)
[2020-11-08] MEDS: MIDODRINE 5 MG TAB PO SCH ×2 (06:50→13:10)
--- NOTE | 2020-11-08 07:00 | NUR ---
NOTED ANOTHER NOSE BLEEDING EPISODE, CLEANSE AND SMALL GAUZE PACKING APPLIED.
--- NOTE | 2020-11-08 07:10 | NUR ---
RECEIVED REPORT FROM NIGHT NURSE PATIENT IS AWAKE,ON TUBE FEEDING GLUCERNA 1.2 AT 65 MLS/HR 250 Q8H WATER FLUSH, IV INTACT ON RIGHT FA G 22 TKO. SKIN INTACT, LAST BOWEL MOVEMENT 11/08/20, PT IS NOSE BLEEDING AND ON 3 LPM OXYGEN NC. SAFETY MEASURES IN PLACE AND CALL LIGHT WITHIN REACH. WILL CONTINUE TO MONITOR.
[2020-11-08 08:00] VITALS: BP 120/65
--- NOTE | 2020-11-08 08:00 | NUR ---
INFORMED DR. DOWNEY REGARDING NOSE BLEEDING ORDERED HOLD ASA AND ELIQUIS, NS NASAL SPRAY QID PRN FOR NOSE BLEEDING.
[2020-11-08] MEDS ORDERED: SODIUM CHLORIDE 0.65% 45 ML BTL NS PRN (08:10)
[2020-11-08] MEDS: APIXABAN 2.5 MG TAB GT SCH (09:00)
[2020-11-08] MEDS: ASPIRIN 81 MG TAB.CHEW GT SCH (09:00)
[2020-11-08] MEDS: MULTIVITAMIN/MINERALS 15 ML UDBTL GT SCH (09:27)
[2020-11-08] MEDS: FAMOTIDINE 20 MG TAB NG SCH (09:27)
[2020-11-08] MEDS: DOCUSATE 100 MG/10 ML UDC GT SCH (09:27)
--- NOTE | 2020-11-08 09:27 | NUR ---
ADMINISTERED SCHEDULED MEDICATION AND HELD ASPIRIN AND APIXABAN PT IS NOSE BLEEDING AND NASAL SPRAY GIVEN. DR BILLY CEDENO.
[2020-11-08] MEDS ORDERED: LEVOFLOXACIN 500 MG/D5W PREMIX 100 ML IV SCH (10:00)
--- NOTE | 2020-11-08 10:37 | NUR ---
LEVOFLOXACIN 500 MG GIVEN IV INFUSING WELL.
[2020-11-08] MEDS ORDERED: LEVO500T98 GT (12:50)
--- NOTE | 2020-11-08 13:20 | NUR ---
ADMINISTERED SCHEDULED MEDICATION CHECK VITAL SIGNS BP 114/66 HI 92.PT IS SLEEPING NO RESIDUAL VOLUME.
--- NOTE | 2020-11-08 14:05 | NUR ---
CALLED [facility] AND GAVE REPORT TO АНДРЕЙ WILLIAMSON FOR UPDATES.
--- NOTE | 2020-11-08 15:00 | NUR ---
DISCHARGED INSTRUCTIONS GIVEN TO АНДРЕЙ AT THE BEDSIDE, REMOVED ID BANDS, IV INTACT AND COMPLETE NO BLEEDING, CHANGED PT OWN CLOTHES, ENCOURAGED TO CONTINUE MEDICATION AND FOLLOW UP WITH PCP, PATIENT TOOK ALL HIS BELONGINGS AND ESCORTED TO FRONT LOBBY VIA WHEELCHAIR. PATIENT IS BEING TRANSFERRED BACK TO [facility] PATHWAY ACCOMPANIED BY CAREGIVER АНДРЕЙ, OT IS STABLE
== END 2020-11-08 15:00 | DRG 871 ==
LOC: MED 22:09 → MTU 11-05 06:19
PROVIDERS: ADMIT Preventive Medicine Preventive Medicine/Occupational Environmental Medicine; ATTEND Preventive Medicine Preventive Medicine/Occupational Environmental Medicine
DX: A41.9 Sepsis, unspecified organism (principal); J96.01 Acute respiratory failure with hypoxia; E87.1 Hypo-osmolality and hyponatremia; N39.0 Urinary tract infection, site not specified; Z16.24 Resistance to multiple antibiotics; D64.9 Anemia, unspecified; E11.9 Type 2 diabetes mellitus without complications; E88.09 Other disorders of plasma-protein metabolism, not elsewhere classified; F03.90 Unspecified dementia, unspecified severity, without behavioral disturbance, psychotic disturbance, mood disturbance, and anxiety; R13.10 Dysphagia, unspecified; G40.909 Epilepsy, unspecified, not intractable, without status epilepticus; B96.89 Other specified bacterial agents as the cause of diseases classified elsewhere; Z20.822 Contact with and (suspected) exposure to COVID-19; I10 Essential (primary) hypertension; Z60.2 Problems related to living alone; R74.01 Elevation of levels of liver transaminase levels; I25.10 Atherosclerotic heart disease of native coronary artery without angina pectoris; Z79.01 Long term (current) use of anticoagulants; Z86.73 Personal history of transient ischemic attack (TIA), and cerebral infarction without residual deficits; Z79.82 Long term (current) use of aspirin; Z79.899 Other long term (current) drug therapy
CPT/HCPCS: 36415; 71045; 73090; 80048; 80053; 81001; 83605; 83735; 83880; 84100; 84484; 85025; 85610; 85651; 85730; 86140; 87040; 87081; 87086; 87804; 92610; 93005; 96361; 96365; 99285; J0696; J1956; J7030; J7060; Q0092

== ENCOUNTER 2020-12-26 11:13 | Inpatient (IN) | payer OTHER, MEDICAID ==
[~2020-12-26] VITALS: Ht 160 cm; Wt 60.8 kg
[~2020-12-26 11:13] MED LIST changes: +LEVO-315 GT
[2020-12-26 11:15] VITALS: BP 94/61
--- NOTE | 2020-12-26 11:17 | NUR ---
70 Y/O MALE BIBA FOR ALOC AND FEVER X 2 DAYS. PT AFEBRILE UPON ARRIVAL TO ER. VSS. RESP EVEN AND UNLABORED, ABLE TO ANSWER SIMPLE YES OR NO QUESTIONS. PEG TUBE NOTED WITH + BS NOTED X4. PEG TUBE PATENT AND INTACT. BILAT UPPER AND LOWER CONTRATURES NOTED. PT INCONTINENTX2 WITH DIARRHEA REPORTED X 2 DAYS. DENIES CP/N/V AT THIS TIME. PMHX: DMII, HLD, SCHIZIPHRENIA, ID, CEREBRAL PALSY, BIPOLAR HOME MEDS: SEE LIST ALLERGIES: NONE
--- NOTE | 2020-12-26 11:18 | NUR ---
DR PATEL AT BEDSIDE EVALUATING PT
[2020-12-26] MEDS ORDERED: NACL 0.9% 1,000 ML IV ONE ×2 (11:35→13:40)
[2020-12-26 11:48] LABS: HEMATOCRIT 26.8 % (36-52); HEMOGLOBIN 8.9 g/dL (12.0-18.0); MEAN CORPUSCULAR VOLUME 95.5 fL (80-94)
--- NOTE | 2020-12-26 11:55 | NUR ---
URINE COLLECTED VIA STRAIGHT CATH PER DOC ORDERS.
[2020-12-26 11:56] LABS: MEAN CORPUSCULAR HEMOGLOBIN 32 pg (27-31); MEAN CORPUSCULAR HGB CONC 33 g/dL (33-37); PLATELET COUNT (AUTO) 114 K/uL (140-450); RED CELL DISTRIBUTION WIDTH 16.3 % (11.6-13.7); WHITE BLOOD COUNT (AUTO) 4.4 K/uL (4.8-10.8)
--- NOTE | 2020-12-26 12:00 | NUR ---
RADIOLOGY AT BEDSIDE TO TAKE XRAY
[2020-12-26 12:03] LABS: ALBUMIN 2.4 g/dL (3.4-5.0); ANION GAP 11.3 (8-16); CARBON DIOXIDE 26.8 mmol/L (21-32); CREATININE 1.1 mg/dL (0.6-1.3); POTASSIUM 4.1 mmol/L (3.5-5.1); TOTAL BILIRUBIN 0.3 mg/dL (0.0-1.0)
--- NOTE | 2020-12-26 12:03 | NUR ---
PT TAKEN TO CT IN [place]
[2020-12-26 12:10] LABS: LYMPHOCYTES % (MANUAL) 12 % (20-46); MONOCYTES % (MANUAL) 17 % (5-12)
--- NOTE | 2020-12-26 12:45 | NUR ---
PT RETURNED TO ROOM [address]
--- NOTE | 2020-12-26 12:53 | NUR ---
WALKED OVER QUENTIN TEST TO LAB AT 1250. PT WAS RESTING, BED IN LOW POSTION.
--- NOTE | 2020-12-26 13:04 | NUR ---
BLOOD GLUCOSE CHECK AT 1300. BG OF 103. PT WAS RESTING. BED IN LOW POSITION.
[2020-12-26 13:16] LABS: BILIRUBIN,URINE NEGATIVE (NEGATIVE); BLOOD, URINE 2+ (NEGATIVE); COLOR,URINE YELLOW (YELLOW); LEUKOCYTE ESTERASE ,URINE 3+ (NEGATIVE); NITRITE, URINE NEGATIVE (NEGATIVE); PH,URINE 7.5 (5.0-9.0); UGLUCOSE NEGATIVE (NEGATIVE)
[2020-12-26 13:18] LABS: APPEARANCE,URINE HAZY (CLEAR)
[2020-12-26 13:19] LABS: RBC,URINE 11-20 (MOD) /HPF (0-5)
[2020-12-26 13:20] LABS: WBC,URINE >25 (MANY) /HPF (0-5)
[2020-12-26] MEDS ORDERED: MIDODRINE 5 MG TAB GT STA (13:36)
[2020-12-26] MEDS ORDERED: cefTRIAXone 1,000 MG VIAL ONE (14:02)
--- NOTE | 2020-12-26 14:51 | NUR ---
TAWNYA F/C INSERTED PER MD PATEL.
--- NOTE | 2020-12-26 14:54 | NUR ---
# 16 FR Billy catheter with 30 ml utilizing sterile technique. Immediate return of 30 ml bright red blood and yellow urine noted. Bedside drainage bag placed below level of bladder. Urine sample collected and sent to lab. Pt tolerated procedure well.
--- NOTE | 2020-12-26 15:07 | NUR ---
Patient will be admitted to care of [facility]. Admited to TELE. Will go to room 124 A. Belongings list completed. Report to ROSE ACOSTA
--- NOTE | 2020-12-26 15:07 | NUR ---
Patient will be admitted to care of [facility]. Admited to TELE. Will go to room 124 A. Belongings list completed. Report to .
[2020-12-26] MEDS ORDERED: GLUC1VIA (15:32)
[2020-12-26] MEDS ORDERED: VALP-22 GT (15:32)
[2020-12-26] MEDS ORDERED: ROB PO (15:32)
[2020-12-26] MEDS ORDERED: ACET-2619 GT (15:33)
[2020-12-26 15:45] VITALS: BP 120/58
--- NOTE | 2020-12-26 15:45 | NUR ---
RECEIVED PATIENT TRANSFER FROM ER. CC FEVER AND DIARRHEA X2 DAYS, DX UTI AND SEPSIS. PATIENT IS AWAKE, ALERT, ABLE TO FOLLOW BASIC COMMAND. RESPIRATORY EVEN AND UNLABORED, ON 2L OXYGEN VIA NC. LUNG SOUND CLEAR TO AUSCULTATE. SKIN WARM, DRY, NON DIAPHORETIC. IV ON RIGHT AC 20G, INTACT AND PATENT, SALINE LOCK. IV ON LEFT HAND 22G, INTACT AND PATENT, SALINE LOCK. ABDOMEN SOFT, NON TENDER, BOWEL SOUND ACTIVE TO ALL QUADRANTS, PEG TUBE IN PLACE. HEATH IN PLACE, CLEAR YELLOW URINE. MRSA COLLECTED. ORIENT TO ROOM AND UNIT. PLAN OF CARE DISCUSSED. PRECAUTION IN PLACE. CALL LIGHT WITHIN REACH, WILL CONTINUE TO MONITOR.
--- NOTE | 2020-12-26 17:30 | NUR ---
CALL [facility] TO NOTIFY PATIENT'S ADMISSION. NO ONE ANSWER THE PHONE. LEAVE VOICE MESSAGE WITH CALL BACK NUMBER. WILL CONTINUE TO FOLLOW UP.
[2020-12-26] MEDS ORDERED: POLYETHYLENE GLYCOL 17 GM/PKT GT PRN (18:20)
[2020-12-26] MEDS ORDERED: bisacodyL 10 MG SUPP RC PRN (18:20)
[2020-12-26] MEDS ORDERED: ALBUTEROL 0.083% 2.5 MG/3 ML NEBU INH PRN (18:20)
[2020-12-26] MEDS ORDERED: ONDANSETRON 4 MG/2 ML VIAL IVP PRN (18:20)
[2020-12-26] MEDS ORDERED: guaiFENesin 20 MG/ML UDC GT PRN (18:20)
[2020-12-26] MEDS: DEXT 5% /NACL 0.9% 1,000 ML IV SCH (18:47)
--- NOTE | 2020-12-26 19:18 | NUR ---
ENDORSED PATIENT TO RESEARCH ASSOCIATE PROFESSOR NURSE FOR CONTINUITY OF CARE. PATIENT IS STABLE.
--- NOTE | 2020-12-26 19:20 | NUR ---
RECEIVED REPORT FROM DRAKE RN FOR CONTINUITY OF CARE. PT SITTING UP AROUSABLE TO VERBAL/TACTILE STIMULI, NONVERBAL. NO APPARENT S/S OF ACUTE DISTRESS. BREATHING EVEN AND UNLABORED ON RA WITH O2 SAT OF 99%. NO S/S OR CP, SOB OR PAIN. R AC 20G AND L HAND 22G INTACT/PATENT WITH D5NS@100ML/HR. PEG TUBE CLAMPED, INTACT/PATENT. HEATH CATH INTACT PATENT WITH YELLOW URINE DRAINING TO GRAVITY. POC AND WHITE COMMUNICATION BOARD UPDATED. BED IN LOW/LOCKED POSITION. CALL LIGHT WITHIN REACH. PT ENCOURAGED TO CALL FOR ANY NEEDS/ASSISTANCE. WILL CONTINUE TO MONITOR.
[2020-12-26 20:00] VITALS: BP 121/54
[2020-12-26] MEDS ORDERED: POTASSIUM BICARBONATE GT SCH (21:00)
[2020-12-26] MEDS ORDERED: CIT AC GT SCH (21:00)
[2020-12-26] MEDS ORDERED: AZITHROMYCIN 500 MG INJ VIAL IV ONE (21:30)
[2020-12-26] MEDS: AZITHROMYCIN 500 MG in DEXTROSE 5% 250 ML IV SCH (21:48)
[2020-12-26] MEDS: VALPROIC ACID 250 MG/5 ML UDC GT SCH (21:50)
[2020-12-26] MEDS: APIXABAN 2.5 MG TAB GT SCH (21:50)
[2020-12-26] MEDS: FAMOTIDINE 20 MG TAB GT SCH (21:51)
[2020-12-26] MEDS: MIDODRINE 5 MG TAB GT SCH (21:52)
[2020-12-26] MEDS: QUEtiapine FUMARATE 100 MG TAB GT SCH (21:52)
[2020-12-27] VITALS: BP 125/53
--- NOTE | 2020-12-27 00:46 | NUR ---
SPOKE TO OBDULIO FROM PHARMACY TO CLARIFY VANCO ORDER, PER PHARM OBDULIO OK TO GIVE.
[2020-12-27] MEDS: VANCOMYCIN 500 MG VIAL GT SCH ×2 (00:51→06:15)
[2020-12-27 04:00] VITALS: BP 119/73
[2020-12-27] MEDS: DEXT 5% /NACL 0.9% 1,000 ML IV SCH ×3 (04:17→18:00)
[2020-12-27] MEDS: MIDODRINE 5 MG TAB GT SCH ×3 (05:24→21:00)
[2020-12-27 06:18] LABS: ANION GAP 13.8 (8-16); CREATININE 0.8 mg/dL (0.6-1.3); POTASSIUM 3.8 mmol/L (3.5-5.1)
[2020-12-27 06:23] LABS: HEMATOCRIT 22.5 % (36-52); MEAN CORPUSCULAR VOLUME 96.2 fL (80-94); PLATELET COUNT (AUTO) 160 K/uL (140-450)
[2020-12-27 06:24] LABS: HEMOGLOBIN 7.8 g/dL (12.0-18.0); MEAN CORPUSCULAR HEMOGLOBIN 33 pg (27-31); MEAN CORPUSCULAR HGB CONC 35 g/dL (33-37); RED BLOOD CELL COUNT(AUTO) 2.33 MIL/uL (4.20-6.10); RED CELL DISTRIBUTION WIDTH 16.3 % (11.6-13.7); WHITE BLOOD COUNT (AUTO) 5.9 K/uL (4.8-10.8)
--- NOTE | 2020-12-27 07:17 | NUR ---
REPORT GIVEN TO DRAKE RN FOR CONTINUITY OF CARE. NO APPARENT S/S OF ACUTE DISTRESS. BREATHING EVEN AND UNLABORED. BED IN LOW/LOCKED POSITION. CALL LIGHT WITHIN REACH. ALL NEEDS MET AT THIS TIME.
--- NOTE | 2020-12-27 07:18 | NUR ---
RECEIVED PATIENT FROM ADJUNCT ART HISTORY INSTRUCTOR NURSE FOR CONTINUITY OF CARE. PATIENT IS AWAKE, ALERT, ABLE TO FOLLOW BASIC COMMAND. RESPIRATORY EVEN AND UNLABORED, ON 2L OXYGEN VIA NC. SKIN WARM, DRY, NON DIAPHORETIC. IV ON RIGHT AC 20G, INTACT AND PATENT, SALINE LOCK. IV ON LEFT HAND 22G, INTACT AND PATENT, IS INFUSING FLUID ORDER. PEG TUBE IN PLACE. HEATH IN PLACE, CLEAR YELLOW URINE. PLAN OF CARE DISCUSSED. PRECAUTION IN PLACE. CALL LIGHT WITHIN REACH, WILL CONTINUE TO MONITOR.
[2020-12-27 07:27] LABS: LYMPHOCYTES % (MANUAL) 33 % (20-46); MONOCYTES % (MANUAL) 17 % (5-12)
[2020-12-27] MEDS ORDERED: ACETAMINOPHEN 650 MG/20.3 ML UDC GT PRN (07:35)
[2020-12-27 08:00] VITALS: BP 115/60
[2020-12-27] MEDS: DOCUSATE 100 MG/10 ML UDC GT SCH (09:00)
--- NOTE | 2020-12-27 09:17 | NUR ---
PATIENT HAS BEEN SCREENED AND CATEGORIZED HIGH NUTRITION RISK. PATIENT WILL BE SEEN WITHIN 1-2 DAYS OF ADMISSION. 12/27/20-12/28/[address]
[2020-12-27] MEDS: VALPROIC ACID 250 MG/5 ML UDC GT SCH ×2 (09:29→23:05)
[2020-12-27] MEDS: ASPIRIN 81 MG TAB.CHEW GT SCH (09:29)
--- NOTE | 2020-12-27 09:29 | NUR ---
SCHEDULE MEDICATIONS GIVEN WITH EDUCATION. PATIENT TOLERATED WELL. NO SIGN OF DISTRESS. HOLD COLACE DUE TO PATIENT HAS DIARRHEA DURING THE NIGHT. PRECAUTION IN PLACE. CALL LIGHT WITHIN REACH. WILL CONTINUE TO MONITOR.
[2020-12-27] MEDS: FAMOTIDINE 20 MG TAB GT SCH ×2 (09:30→22:51)
[2020-12-27] MEDS: APIXABAN 2.5 MG TAB GT SCH ×2 (09:31→22:50)
[2020-12-27 12:00] VITALS: BP 106/66
[2020-12-27] MEDS: VANCOMYCIN HCL 25 MG/ML SOLN PO SCH ×3 (12:57→23:24)
--- NOTE | 2020-12-27 12:57 | NUR ---
SCHEDULE MEDICATIONS GIVEN WITH EDUCATION. PATIENT TOLERATED WELL. NO SIGN OF DISTRESS NOTED. PRECAUTION IN PLACE. CALL LIGHT WITHIN REACH. WILL CONTINUE TO MONITOR.
--- NOTE | 2020-12-27 13:25 | NUR ---
[facility]'S CONDITION. ALL QUESTIONS WERE ANSWER. WILL CONTINUE TO UPDATE.
--- NOTE | 2020-12-27 13:40 | NUR ---
12/27/20 RD INITIAL ASSESSMENT COMPLETED PLEASE REFER TO NUTRITION ASSESSMENT UNDER CARE ACTIVITY FOR ESTIMATED NUTRITIONAL NEEDS. 1. RECOMMEND GLUCERNA 1.2 @ 60 ML/HR -THIS WILL PROVIDE 1440 ML OF VOLUME, 1159 ML OF FREE WATER, 1728 KCAL/DAY AND 86 GM OF PROTEIN/DAY 2. RECOMMEND FREE WATER FLUSH OF [address] TO FOLLOW-UP 2-3 DAYS, HIGH RISK SARA WING RD
--- NOTE | 2020-12-27 14:33 | NUR ---
SCHEDULE MEDICATION GIVEN WITH EDUCATION. PATIENT TOLERATED WELL. NO SIGN OF DISTRESS NOTED. PRECAUTION IN PLACE. CALL LIGHT WITHIN REACH. WILL CONTINUE TO MONITOR.
--- NOTE | 2020-12-27 14:58 | NUR ---
DC PLANNING: THE PATIENT WAS BIB AMBULANCE FROM [facility], [facility] FOR C/O FEVER AND DIARRHEA. CT ABD/PELVIS SHOWS TENATIVE FINDINGS OF BILATERAL VESICOURETERAL REFLUX, DISTENDED BALDDER AND PHLEBOLITHS. FC PLACED, UROLOGY CONSULT ORDERED, C-DIF W/U ORDERED. GIRMA SPOKE WITH АНДРЕЙ, THE WINDOW SHADE RING COVERER AT [facility]. THE PATIENT HAS BEEN AT THIS [facility] FOR 2 YEARS AND WAS LIVING AT ANOTHER [facility] FACILITY PRIOR TO THAT. HE HAS A H/O CP AND IS WC BOUND. HE IS ABLE TO ASSIST WITH BATHING AND DRESSING AND HAS A PEG. HE IS ALERT AND HAS GOOD COMPREHENSION BUT USUALLY PROVIDES ONE WORD ANSWERS TO QUESTIONS. HIS REGIONAL WORKER IS GIRMA, HER PHONE IS [phone]. THE PATIENT SAW ESHA MELGAR LAST WEEK, PER АНДРЕЙ NO PROSTATE ISSUES WERE IDENTIFIED. THE PARACHUTE/COMBATANT DIVER OFFICER IS JASON MELCHOR, PHONE [phone]. DC PLAN IS TO RETURN TO [facility], GIRMA WILL FOLLOW FOR NEEDS. Addendum: 12/31/20 at 1540 by Destiny Washington CM DC PLANNING: GIRMA SPOKE WITH JASON MELCHOR FROM [facility], SHE STATES THAT [facility] AND [facility] ARE THE SNF'S OF CHOICE TO REFER THE PATIENT TO. GIRMA ALSO HAD VM FROM [facility] ASKING THAT REFERRALS BE SENT TO THE ABOVE SNF'S. AFTER REFERRALS WERE SENT, MARCI FROM [facility] CALLED STATING THAT THE FACILITY IS ACCEPTING THE PATIENT. GIRMA WILL CALL FOR A ROOM ASSIGNMENT ONCE DC ORDER IS RECEIVED. CM WILL FOLLOW FOR NEEDS. Addendum: 01/01/21 at 1034 by Destiny [place] CM DC PLANNING: THE PATIENT IS ACCEPTED TO [facility], ROOM 2B UNDER DR DOWNEY. PICC BEING PLACED TODAY, NURSING REACHING OUT TO DR DOWNEY FOR FINAL DC ORDERS. [facility] WILL ARRANGE TRANSPORT, CM WILL LET THEM KNOW ONCE PICC HAS BEEN PLACED. PATIENT WITH PEG, ISOLATION FOR ESBL URINE AND IV ABX, CM WILL FOLLOW FOR NEEDS. Addendum: 01/01/21 at 1404 by Destiny Washington DC PLANNING: GIRMA SPOKE WITH DR DOWNEY, HE WILL WRITE FINAL DC ORDERS AFTER HE SPEAKS WITH THE ID REGARDING CONTINUATION OF IV ABX (ORDER FOR DC RECEIVED). GIRMA ALSO SPOKE WITH YANIRA, THE IV NURSE FOR PICC/MIDLINE PLACEMENT, HE WAS 1/2 HR AWAY AND FELT THAT THE LINE AND XRAY WOULD BE DONE BY 1500. GIRMA SPOKE WITH ADRIENNE AT [facility], [facility] TRANSPORT IS ARRANGED THROUGH PERSONAL CARE ([phone]), 1700 [employer] [employer] SUPERINTENDENT TIME. GIRMA ALSO SPOKE WITH JASON MELCHOR TO NOTIFY HER OF THE PATIENTS DC TO [facility], NURSING ALSO NOTIFIED. [address] [phone]
--- NOTE | 2020-12-27 15:27 | NUR ---
PER JERICHO, [facility] DIRECT[facility], TO FROM DR JONES, CANCEL COLLECT STOOL FOR C.DIFF. WILL CARRY THE ORDER.
[2020-12-27 16:00] VITALS: BP 134/59
--- NOTE | 2020-12-27 16:30 | NUR ---
PATIENT'S TEMP 100.4. COOLING MEASURE APPLIED. NO SIGN OF DISTRESS NOTED. PRECAUTION IN PLACE. CALL LIGHT WITHIN REACH. WILL CONTINUE TO MONITOR.
--- NOTE | 2020-12-27 17:30 | NUR ---
PATIENT'S TEMP IS 99.4, TRENDING DOWN. WILL CONTINUE TO MONITOR.
--- NOTE | 2020-12-27 19:16 | NUR ---
ENDORSED PATIENT TO QUALITY CONTROL ANALYST NURSE FOR CONTINUITY OF CARE. PATIENT IS STABLE.
--- NOTE | 2020-12-27 19:30 | NUR ---
RECEIVED REPORT FROM RN DAYSHIFT NURSE AT BEDSIDE FOR CONTINUITY OF CARE, PT IN STABLE CONDITION.
[2020-12-27 20:00] VITALS: BP 107/49
--- NOTE | 2020-12-27 20:00 | NUR ---
PT IN BED AOX1, EYES CLOSED AND RESTING WITH NO S/S OF PAIN OR DISTRESS ORDERED. HE IS BEDBOUND AND HAS SEIZURES PRECAUTIONS IN PLACE. PT HAS 2 LITERS 02 VIA N/C. HE ALSO HAS A HEATH CATHETER INTACT AND DRAINING YELLOW URINE. PT HAS AN INTACT PEG TUBE WHICH IS LOCKED AT THIS TIME. PT IV SITE IS A LEFT HAND 24 GUAGE WHICH IS RUNNING D5NS AT 100MLS/HR. V/S FOLLOWS: T 97 P 68 R 18 B/P 107/49 02 99% WITH 2 LITERS N/C. ALL ORDERED PRECAUTIONS IN PLACE.
--- NOTE | 2020-12-27 21:30 | NUR ---
ORDERED ZITHROMAX HUNG AND RUNNING ORDERED. PT ALSO GIVEN ORDERED ELIQUIS, PEPCID MIDODRINE AND TEGRETOL AND DEPAKENE VIA PEG TUBE, WHICH WAS FLUSHED PATENT. PT UNABLE TO COMPREHEND PT EDUCATION. ALL ORDERED PRECAUTIONS IN PLACE.
--- NOTE | 2020-12-27 22:30 | NUR ---
PT TURNED AND REPOSITIONED IN BED.
[2020-12-27] MEDS: QUEtiapine FUMARATE 100 MG TAB GT SCH (22:57)
[2020-12-27] MEDS: AZITHROMYCIN 500 MG in DEXTROSE 5% 250 ML IV SCH (23:20)
[2020-12-28] VITALS: BP 93/53
--- NOTE | 2020-12-28 00:15 | NUR ---
PT WAS GIVEN ORDERED LIQUID VANCOMYCIN VIA PEG TUBE WHICH WAS FLUSHED PATENT. V/S FOLLOWS: T 97.0 P 97 R 18 B/P 93/53 02 97% WITH 2 LITERS VIA N/C. PT REPOSITIONED IN BED. ALL ORDERED PRECAUTIONS IN PLACE.
--- NOTE | 2020-12-28 03:00 | NUR ---
PT WAS REPOSITIONED IN BED, ALL ORDERED PRECAUTIONS IN PLACE.
[2020-12-28 04:00] VITALS: BP 108/46
[2020-12-28] MEDS: MIDODRINE 5 MG TAB GT SCH ×3 (05:00→21:00)
[2020-12-28] MEDS: DEXT 5% /NACL 0.9% 1,000 ML IV SCH (06:30)
--- NOTE | 2020-12-28 06:30 | NUR ---
PT GIVEN VANCO VIA PEG TUBE WELL MIDODRINE FOR B/P. NEW BAG OF D5 N/S HUNG AND RUNNING ORDERED.
[2020-12-28] MEDS: VANCOMYCIN HCL 25 MG/ML SOLN PO SCH ×4 (06:37→23:41)
[2020-12-28 08:00] VITALS: BP 124/60
--- NOTE | 2020-12-28 08:07 | NUR ---
RECEIVED REPORT FROM SHIPMASTER RN FOR CONTINUITY OF CARE. PT SITTING UP AROUSABLE TO VERBAL/TACTILE STIMULI, NONVERBAL. NO APPARENT S/S OF ACUTE DISTRESS. BREATHING EVEN AND UNLABORED ON RA WITH O2 SAT OF 99%. NO S/S OR CP, SOB OR PAIN. R AC 20G AND L HAND 22G. PEG TUBE CLAMPED, INTACT/PATENT. HEATH CATH INTACT PATENT WITH YELLOW URINE DRAINING TO GRAVITY. POC AND WHITE COMMUNICATION BOARD UPDATED. BED IN LOW/LOCKED POSITION. CALL LIGHT WITHIN REACH. PT ENCOURAGED TO CALL FOR ANY NEEDS/ASSISTANCE
[2020-12-28] MEDS: ASPIRIN 81 MG TAB.CHEW GT SCH (08:42)
[2020-12-28] MEDS: FAMOTIDINE 20 MG TAB GT SCH ×2 (08:42→21:12)
[2020-12-28] MEDS: DOCUSATE 100 MG/10 ML UDC GT SCH (08:47)
[2020-12-28] MEDS: VALPROIC ACID 250 MG/5 ML UDC GT SCH ×2 (08:47→21:10)
[2020-12-28] MEDS: APIXABAN 2.5 MG TAB GT SCH ×2 (08:49→21:12)
--- NOTE | 2020-12-28 10:08 | NUR ---
PT IN BED NO COMPLAINS NO SOD NOTED, GOT MORNING MEDICATION ADMINISTRATED TOLERATED WELL, ALL SAFETY MEASURES ON PLACE CALLS LIGHT WITHIN REACH
--- NOTE | 2020-12-28 12:18 | NUR ---
PT IN BED NO COMPLAINS NO SOD NOTED, PATIENT GETTING GLUCERNA AT RATE 10 WILL RAISE 10ML/H EVERY 4 HOURS TILL REACH 60ML/H, WATER FLUSHES 140Q6, ALL SAFETY MEASURES ON PLACE CALLS LIGHT WITHIN REACH
[2020-12-28 12:23] VITALS: BP 105/52
--- NOTE | 2020-12-28 14:05 | NUR ---
PT IN BED NO COMPLAINS NO SOD NIOTED, PATIENT GOT CLEANED AND CHANGED, PEG IN PLACE, HEATH CATHETER IN PLACE DRAINING YELLOW URINE, ALL SAFETY MEASURES ON PLACE CALLS LIGHT WITHIN REACH
--- NOTE | 2020-12-28 15:58 | NUR ---
PT IN BED NO COMPLAINS NO SOD NIOTED, ALL SAFETY MEASURES ON PLACE CALLS LIGHT WITHI REACH
[2020-12-28 16:00] VITALS: BP 117/66
--- NOTE | 2020-12-28 17:48 | NUR ---
PT IN BED NO COMPLAINS NO SOD NOTED, PATIENT GOT CLEANED AND CHANGED, PEG IN PLACE, HEATH CATHETER IN PLACE DRAINING YELLOW URINE, ALL SAFETY MEASURES ON PLACE CALLS LIGHT WITHIN REACH
--- NOTE | 2020-12-28 19:32 | NUR ---
FULL BEDSIDE REPORT GIVEN TO INSURANCE RISK SURVEYOR NURSE
--- NOTE | 2020-12-28 19:35 | NUR ---
RECEIVED PT ON BED, AWAKE WITH GARBLED SPEECH, HX:CEREBRAL PALSY, NO SOB NOTED, FLACC-0, G-TUBE FEEDING IN PLACE, NO RESIDUAL NOTED, RATE INCREASED TO 20ML/H ORDERED WITH H20 FLUSH OF 140ML Q6H, TO ADVANCE RATE 10ML Q4H WITH GOAL RATE OF 60ML TOLERATED, MAINTAIN HOB ELEVATED AT ALL TIMES, IV SITE SALINE LOCK AT THIS TIME, HEATH CATHETER VIA GRAVITY WITH STRAW COLORED URINE OUTPUT, BEDBOUND, WILL REPOSITION Q2H AND OFFLOAD PRESSURE AREAS, SAFETY AND SEIZURE PRECAUTION IN PLACE, FREQUENT ROUNDS WILL BE MADE.
[2020-12-28 20:00] VITALS: BP 132/69
--- NOTE | 2020-12-28 20:00 | NUR ---
PT POSITIVE FOR MRSA NARES, DR Katarzyna DOWNEY MADE AWARE AND ORDERED MRSA PROTOCOL IN PLACE.
[2020-12-28] MEDS: AZITHROMYCIN 500 MG in DEXTROSE 5% 250 ML IV SCH (21:04)
[2020-12-28] MEDS: MUPIROCIN CA NASAL 2% 1GM TUBE NS SCH (21:05)
[2020-12-28] MEDS: CHLORHEXADINE GLUC 2% CLOTH TP SCH (21:05)
[2020-12-28] MEDS: QUEtiapine FUMARATE 100 MG TAB GT SCH (21:11)
[2020-12-28] MEDS ORDERED: VANCOMYCIN PER PHARMACY MC PRN (21:45)
[2020-12-28] MEDS ORDERED: VANCOMYCIN HCL 1,250 MG in DEXTROSE 5% 250 ML IV SCH (22:00)
[2020-12-28] MEDS ORDERED: VANCOMYCIN 500 MG VIAL ONE (22:36)
[2020-12-28] MEDS ORDERED: VANCOMYCIN 1,000 MG VIAL ONE (22:36)
--- NOTE | 2020-12-28 23:45 | NUR ---
DR EARLY WITH NEW ORDERS, CARRIED OUT, VANCOMYCIN IVPB STARTED, NARES SWABBED FOR COVID PCR AND SENT TO LAB, ALL NEEDS ATTENDED.
[2020-12-29] VITALS: BP 119/65
[2020-12-29 04:00] VITALS: BP 150/70
--- NOTE | 2020-12-29 04:30 | NUR ---
NO RESIDUAL NOTED, G-TUBE FEEDING RATE INCREASED TO 40ML/H, PT REPOSITIONED, NO BM THE WHOLE SHIFT, HELD DUE MIDODRINE DUE TO BP OF 150/70, MONITORED CLOSELY.
[2020-12-29] MEDS ORDERED: PIPERACILLIN/TAZOBACTAM 3.375 GM VIAL IV ONE (04:53)
[2020-12-29] MEDS: MIDODRINE 5 MG TAB GT SCH ×3 (05:00→22:10)
[2020-12-29] MEDS: PIPERACILLIN/TAZOBACTAM 3.375 GM in DEXTROSE 5% 50 ML IV SCH ×3 (05:03→22:12)
[2020-12-29] MEDS: VANCOMYCIN HCL 25 MG/ML SOLN PO SCH ×2 (05:53→12:34)
--- NOTE | 2020-12-29 06:20 | NUR ---
PT REFUSED AM DRAW, GETS AGITATED WHEN TOUCHED, ACADEMIC COORDINATOR WILL TRY AGAIN LATER, WILL ENDORSE TO AM SHIFT, MONITORED CLOSELY.
--- NOTE | 2020-12-29 07:30 | NUR ---
PT AWAKE, NO SIGNS OF DISTRESS, BEDSIDE REPORT GIVEN TO ALVIN ACOSTA FOR CONTINUITY OF CARE.
--- NOTE | 2020-12-29 07:36 | NUR ---
RECEIVED PT FROM NIGHT RN, PT IS AWAKE AND LYING ON THE BED WITH SIDE RAILS AND CALL LIGHT WITHIN REACH, IV LINE NOTED ON THE LEFT HAND G. 24 ON KVO, AND ON RAC G. 20 ON SALINE LOCK, PT IS ON RA, G-TUBE IN PLACE AND ON CONTINUOUS FEEDING OF GLUCERNA 1.2 AT 60ML/HR, WITH WATER FLUSH OF 140Q6H, NO SIN OF DISTRESS NOTED AND WILL CONTINUE TO MONITOR PT.
[2020-12-29 08:00] VITALS: BP 150/70
[2020-12-29] MEDS: FAMOTIDINE 20 MG TAB GT SCH ×2 (10:06→22:09)
[2020-12-29] MEDS: ASPIRIN 81 MG TAB.CHEW GT SCH (10:07)
[2020-12-29] MEDS: DOCUSATE 100 MG/10 ML UDC GT SCH (10:08)
[2020-12-29] MEDS: VALPROIC ACID 250 MG/5 ML UDC GT SCH ×2 (10:08→22:09)
[2020-12-29] MEDS: APIXABAN 2.5 MG TAB GT SCH ×2 (10:12→22:15)
--- NOTE | 2020-12-29 10:15 | NUR ---
PT WAS REPOSITIONED NOW, NO SIGN OF DISTRESS NOTED.
[2020-12-29] MEDS ORDERED: VANCOMYCIN HCL 1,250 MG in DEXTROSE 5% 250 ML IV SCH (11:14)
[2020-12-29 12:00] VITALS: BP 139/75
--- NOTE | 2020-12-29 12:45 | NUR ---
PT IS SCREAMING AND GETTING AGITATED, WAS ASKED IF IN PAIN AND PT NODDED, WA MEDICATED.
[2020-12-29] MEDS: HYDROcodone/APAP 5/325 MG 1 TAB TAB GT PRN ×2 (13:46→23:40)
--- NOTE | 2020-12-29 13:50 | NUR ---
12/29/20 RD FOLLOW UP COMPLETED PLEASE REFER TO NUTRITION PROGRESS NOTE UNDER CARE ACTIVITY FOR ESTIMATED NUTRITION NEEDS. RD RECOMMENDATIONS: 1.CONTINUE GLUCERNA 1.2 @ 60 ML/HR -THIS WILL PROVIDE 1440 ML OF VOLUME, 1159 ML OF FREE WATER, 1728 KCAL/DAY AND 86 GM OF PROTEIN/DAY, WHICH IS ADEQUATE TO MEET 100% OF ESTIMATED NUTRITIONAL NEEDS 2. CONTINUE FREE WATER FLUSH OF [address] TO FOLLOW-UP 2-3 DAYS, HIGH RISK VEE QIU, RD
--- NOTE | 2020-12-29 14:30 | NUR ---
PT IS SLEEPING NOW AND IS RESTING.
[2020-12-29 16:00] VITALS: BP 128/87
--- NOTE | 2020-12-29 16:30 | NUR ---
PT IS CALM NOW AND IS RESTING. NO SIGN OF DISTRESS NOTED.
--- NOTE | 2020-12-29 19:00 | NUR ---
DR. MARTA BASHIR TO PUT RESTRAINT, WILL ENDORSED TO NIGHT RN.
--- NOTE | 2020-12-29 19:20 | NUR ---
ENDORSED PT TO NIGHT RH FOR CONTINUITY OF CARE.
[2020-12-29 20:00] VITALS: BP 126/86
[2020-12-29] MEDS: MUPIROCIN CA NASAL 2% 1GM TUBE NS SCH (22:06)
[2020-12-29] MEDS: CHLORHEXADINE GLUC 2% CLOTH TP SCH (22:07)
[2020-12-29] MEDS: QUEtiapine FUMARATE 100 MG TAB GT SCH (22:11)
[2020-12-30] VITALS: BP 124/84
--- NOTE | 2020-12-30 01:20 | NUR ---
Assumed care. He is calm, and he remains calm to date. Earlier towards the end if the shift pt pulled out IV lines. Restraints has been ordered. Will apply the restraints the moment he shows signs of attempting to pull out IV lines, Billy catheter, or G tube. Presently he is calm. He did let me know he was in pain. Pain medication administered. He has run out of tube feeding. Charge nurse notified she will be providing. Will continue to monitor.
[2020-12-30 04:00] VITALS: BP 120/80
[2020-12-30] MEDS: MIDODRINE 5 MG TAB GT SCH ×3 (05:55→22:04)
[2020-12-30] MEDS: PIPERACILLIN/TAZOBACTAM 3.375 GM in DEXTROSE 5% 50 ML IV SCH ×2 (05:56→12:07)
--- NOTE | 2020-12-30 07:30 | NUR ---
Received report from pm nurse Pro. Patient resting in bed, awake, respirations even & nonlabored in room air, no signs of distress/discomfort. GT intact with ongoing feeding of Glucerna 1.2 @ 60ml/hr. Billy cath intact and draining clear light miryam urine. Right AC 20G IV and left hand 24G IV intact and asymptomatic. Bed alarm on. Bilateral siderails padded for seizure precautions.
--- NOTE | 2020-12-30 07:57 | NUR ---
He has remained calm the whole night. He did not attempt to pull any medical equipment. Application of the soft wrist restraints was not necessary
[2020-12-30 08:00] VITALS: BP 134/57
[2020-12-30] MEDS: VALPROIC ACID 250 MG/5 ML UDC GT SCH ×2 (08:55→22:00)
[2020-12-30] MEDS: ASPIRIN 81 MG TAB.CHEW GT SCH (08:55)
[2020-12-30] MEDS: FAMOTIDINE 20 MG TAB GT SCH ×2 (08:55→22:00)
[2020-12-30] MEDS: DOCUSATE 100 MG/10 ML UDC GT SCH (08:55)
[2020-12-30] MEDS: APIXABAN 2.5 MG TAB GT SCH ×2 (09:02→22:00)
[2020-12-30 10:07] LABS: HEMATOCRIT 26.4 % (36-52); HEMOGLOBIN 8.8 g/dL (12.0-18.0); MEAN CORPUSCULAR HEMOGLOBIN 31 pg (27-31); MEAN CORPUSCULAR HGB CONC 33 g/dL (33-37); MEAN CORPUSCULAR VOLUME 94.1 fL (80-94); PLATELET COUNT (AUTO) 60 K/uL (140-450); WHITE BLOOD COUNT (AUTO) 6.1 K/uL (4.8-10.8)
[2020-12-30 10:16] LABS: ANION GAP 7.5 (8-16); CARBON DIOXIDE 31.6 mmol/L (21-32); CREATININE 0.8 mg/dL (0.6-1.3); POTASSIUM 3.1 mmol/L (3.5-5.1)
[2020-12-30] MEDS ORDERED: VANCOMYCIN HCL 1,250 MG in DEXTROSE 5% 250 ML IV SCH (10:28)
[2020-12-30] MEDS ORDERED: POTASSIUM CHLORIDE 20% 40 MEQ/15 ML UDC GT ONE (10:30)
[2020-12-30 10:34] LABS: BASOPHILS % (MANUAL) 0 % (0-2); EOSINOPHILS % (MANUAL) 1 % (0-4); LYMPHOCYTES % (MANUAL) 26 % (20-46); MONOCYTES % (MANUAL) 21 % (5-12)
--- NOTE | 2020-12-30 11:10 | NUR ---
Patient sleeping, respirations even & nonlabored in room air. FLACC 0. HOB remains elevated 30. GT feeding ongoing @ 60ml/hr.
[2020-12-30 12:00] VITALS: BP 101/56
[2020-12-30 16:00] VITALS: BP 108/65
[2020-12-30] MEDS: MUPIROCIN CA NASAL 2% 1GM TUBE NS SCH (19:52)
[2020-12-30] MEDS: LORazepam 1 MG TAB PO PRN (19:53)
--- NOTE | 2020-12-30 19:53 | NUR ---
Assumed care. He is resting calmly. CT abdomen and pelvis ordered by Dr. Olson. CT personnel at the bedside to transport pt to CT. Ativan has been provide to keep pt from agitation. He has been wheeled off unit via bed. IV fluids and tube feeding have been stopped for now. We shall await his return.
[2020-12-30] MEDS: CHLORHEXADINE GLUC 2% CLOTH TP SCH (19:58)
[2020-12-30 20:00] VITALS: BP 132/69
--- NOTE | 2020-12-30 20:23 | NUR ---
Has returned from from CT. Will settle him down. Will continue the tube feeding and the IV fluids.
[2020-12-30] MEDS ORDERED: MEROPENEM 1,000 MG VIAL IV ONE (21:57)
[2020-12-30] MEDS: QUEtiapine FUMARATE 100 MG TAB GT SCH (22:01)
[2020-12-30] MEDS: MEROPENEM 1,000 MG in NACL 0.9% 100 ML IV SCH (22:02)
[2020-12-30] MEDS: VANCOMYCIN HCL 1,250 MG in DEXTROSE 5% 250 ML IV SCH (22:43)
[2020-12-31] VITALS: BP 163/67
[2020-12-31 04:00] VITALS: BP 159/65
[2020-12-31] MEDS ORDERED: MEROPENEM 1,000 MG VIAL IV ONE (05:01)
[2020-12-31] MEDS: MIDODRINE 5 MG TAB GT SCH ×3 (05:12→21:00)
[2020-12-31] MEDS: MEROPENEM 1,000 MG in NACL 0.9% 100 ML IV SCH ×3 (05:13→21:55)
[2020-12-31 06:17] LABS: ALBUMIN 2.1 g/dL (3.4-5.0); ANION GAP 7.3 (8-16); BASOPHILS % (AUTO) 0.5 % (0.0-2.0); CARBON DIOXIDE 34.4 mmol/L (21-32); CREATININE 0.8 mg/dL (0.6-1.3); EOSINOPHILS # (AUTO) 0.2 K/uL (0-0.4); EOSINOPHILS % (AUTO) 3.7 % (0.0-4.0); HEMATOCRIT 26.1 % (36-52); HEMOGLOBIN 8.7 g/dL (12.0-18.0); LYMPHOCYTES # (AUTO) 1.1 K/uL (2.0-11.5); LYMPHOCYTES % (AUTO) 26.2 % (20.5-51.1); MAGNESIUM 2.1 mg/dL (1.8-2.4); MEAN CORPUSCULAR HEMOGLOBIN 32 pg (27-31); MEAN CORPUSCULAR HGB CONC 33 g/dL (33-37); MEAN CORPUSCULAR VOLUME 95.9 fL (80-94); MONOCYTES # (AUTO) 0.6 K/uL (0.8-1.0); NEUTROPHILS # (AUTO) 2.3 K/uL (1.8-7.7); NEUTROPHILS % (AUTO) 54.6 % (42.2-75.2); PHOSPHORUS 3.3 mg/dL (2.5-4.9); PLATELET COUNT (AUTO) 98 K/uL (140-450); POTASSIUM 3.7 mmol/L (3.5-5.1); RED BLOOD CELL COUNT(AUTO) 2.72 MIL/uL (4.20-6.10); RED CELL DISTRIBUTION WIDTH 16.1 % (11.6-13.7); TOTAL BILIRUBIN 0.2 mg/dL (0.0-1.0); WHITE BLOOD COUNT (AUTO) 4.2 K/uL (4.8-10.8)
--- NOTE | 2020-12-31 07:30 | NUR ---
RECEIVED BEDSIDE REPORT FROM PROOF PRESS OPERATOR NURSE JOSEPH PT RESTING, NO DISTRESS NOTED, APHASIC, IV TO R AC 20G PATENT INTACT, KV, PT ON ROOM AIR, NO SOB NOTED, HEATH CATH IN PLACE DRAINIGN TO GRAVITY, GT IN PLACE, 0 RESIDUAL NOTED, [id number] ASSESSMENT DONE, ALL SAFETY PRECAUTION MET, CALL LIGHT WITHIN REACH, WILL CONTINUE TO MONITOR.
[2020-12-31 08:00] VITALS: BP 120/67
[2020-12-31] MEDS: VALPROIC ACID 250 MG/5 ML UDC GT SCH ×2 (09:35→21:00)
[2020-12-31] MEDS: DOCUSATE 100 MG/10 ML UDC GT SCH (09:36)
[2020-12-31] MEDS: ASPIRIN 81 MG TAB.CHEW GT SCH (09:37)
[2020-12-31] MEDS: FAMOTIDINE 20 MG TAB GT SCH ×2 (09:37→22:00)
[2020-12-31] MEDS: APIXABAN 2.5 MG TAB GT SCH ×2 (09:39→21:00)
--- NOTE | 2020-12-31 09:39 | NUR ---
DUE MEDICATIONS ADMINISTERED, PT TOLERATED WELL, NO DISTRESS NOTED, WILL CONTINUE TO MONITOR.
--- NOTE | 2020-12-31 11:30 | NUR ---
RECEIVED FULL REPORT FROM MICHI ACOSTA FOR CONTINUITY OF CARE
--- NOTE | 2020-12-31 11:31 | NUR ---
ENDORSED PT TO DAVE GONZALEZ FOR CONTINUOUS CARE.
--- NOTE | 2020-12-31 11:48 | NUR ---
PT HAS REMOVED HIS IV, PULLED ON HIS DIAPER AND FECES ON HIS HANDS. PT WILL BE CLEANED UP AND SHEETS CHANGED.
[2020-12-31 12:00] VITALS: BP 151/65
--- NOTE | 2020-12-31 13:24 | NUR ---
JASWINDER MEDICATION ADMINISTERED PER MD ORDER, PT TOLERATED ADMINISTRATION . JASWINDER MIDRONINE NON-ADMIN DUE TO ELEVATED BP. NEW IV INSERTED IN RIGHT HAND, 22G. NEW G-TUBE TUBING AND GLUCERNA STARTED. PT IS STABLE AND ALL SAFETY MEASURES IN PLACE, WILL CONTINUE TO MONITOR.
--- NOTE | 2020-12-31 15:00 | NUR ---
PT IS STABLE WITH NO ACUTE S/S OF DISTRESS. ALL SAFETY MEASURES IN PLACE, WILL CONTINUE TO MONITOR.
[2020-12-31 16:00] VITALS: BP 151/65
--- NOTE | 2020-12-31 16:28 | NUR ---
PT IS STABLE WITH NO ACUTE S/S OF DISTRESS, ALL SAFETY MEASURES IN PLACE, WILL CONTINUE TO MONITOR.
--- NOTE | 2020-12-31 17:48 | NUR ---
DR DOWNEY HAS BEEN FAXED CONSENT FOR PICC LINE.
--- NOTE | 2020-12-31 18:11 | NUR ---
PT IS STABLE WITH NO ACUTE S/S OF DISTRESS, ALL SAFETY MEASURES IN PLACE, WILL CONTINUE TO MONITOR.
--- NOTE | 2020-12-31 19:22 | NUR ---
PT HAS BEEN ENDORSED TO SYSTEMS ACCOUNTANT NURSE IN STABLE CONDITION. POC DISCUSSED.
--- NOTE | 2020-12-31 19:25 | NUR ---
RECEIVED REPORT FROM LISA ACOSTA FOR CONTINUITY OF CARE. PT SITTING UP AA. NO APPARENT S/S OF ACUTE DISTRESS. BREATHING EVEN AND UNLABORED ON RA WITH O2 SAT OF 98%. NO C/O CP, SOB OR PAIN. R HAND 22G INTACT/PATENT. PEG TUBE INTACT/PATENT. HEATH CATH INTACT/LATENT WITH YELLOW URINE DRAINING TO GRAVITY. POC AND WHITE COMMUNICATION BOARD UPDATED. BED IN LOW/LOCKED POSITION. CALL LIGHT WITHIN REACH. PT ENCOURAGED TO CALL FOR ANY NEEDS/ASSISTANCE. WILL CONTINUE TO MONITOR.
[2020-12-31 20:00] VITALS: BP 148/74
[2020-12-31] MEDS: CHLORHEXADINE GLUC 2% CLOTH TP SCH (20:00)
[2020-12-31] MEDS: MUPIROCIN CA NASAL 2% 1GM TUBE NS SCH (20:00)
[2020-12-31] MEDS: QUEtiapine FUMARATE 100 MG TAB GT SCH (21:00)
[2020-12-31] MEDS: VANCOMYCIN HCL 1,250 MG in DEXTROSE 5% 250 ML IV SCH (22:40)
[2021-01-01] VITALS: BP 121/49
[2021-01-01 04:00] VITALS: BP 117/71
[2021-01-01 05:43] LABS: BASOPHILS % (AUTO) 0.7 % (0.0-2.0); EOSINOPHILS # (AUTO) 0.2 K/uL (0-0.4); EOSINOPHILS % (AUTO) 3.1 % (0.0-4.0); HEMATOCRIT 24.5 % (36-52); HEMOGLOBIN 8.2 g/dL (12.0-18.0); LYMPHOCYTES # (AUTO) 1.5 K/uL (2.0-11.5); LYMPHOCYTES % (AUTO) 27.2 % (20.5-51.1); MEAN CORPUSCULAR HEMOGLOBIN 32 pg (27-31); MEAN CORPUSCULAR HGB CONC 33 g/dL (33-37); MEAN CORPUSCULAR VOLUME 94.9 fL (80-94); MONOCYTES # (AUTO) 0.8 K/uL (0.8-1.0); PLATELET COUNT (AUTO) 90 K/uL (140-450); RED BLOOD CELL COUNT(AUTO) 2.58 MIL/uL (4.20-6.10); RED CELL DISTRIBUTION WIDTH 15.8 % (11.6-13.7); WHITE BLOOD COUNT (AUTO) 5.4 K/uL (4.8-10.8)
[2021-01-01] MEDS: MIDODRINE 5 MG TAB GT SCH ×2 (05:47→13:00)
[2021-01-01] MEDS: MEROPENEM 1,000 MG in NACL 0.9% 100 ML IV SCH ×2 (05:47→13:00)
[2021-01-01 05:59] LABS: CARBON DIOXIDE 32.6 mmol/L (21-32); CREATININE 0.7 mg/dL (0.6-1.3); POTASSIUM 3.6 mmol/L (3.5-5.1)
--- NOTE | 2021-01-01 07:15 | NUR ---
RECEIVED REPORT FROM SALE PROFESSIONAL DIGITAL MARKETING NURSE FOR CONTINUITY OF CARE. PATIENT SLEEPING. BREATHING EVEN AND UNLABORED. CALL LIGHT WITHIN REACH. ALL SAFETY MEASURES IN PLACE. WILL CONTINUE TO MONITOR.
--- NOTE | 2021-01-01 07:25 | NUR ---
REPORT GIVEN TO NATHEN ACOSTA FOR CONTINUITY OF CARE. NO APPARENT S/S OF ACUTE DISTRESS. BED IN LOW/LOCKED POSITION. CALL LIGHT WITHIN REACH. ALL NEEDS MET AT THIS TIME. Addendum: 01/01/21 at 0726 by Agency NurseDAVE RN REPORT GIVEN TO ROSE ACOSTA FOR CONTINUITY OF CARE, NOT NATHEN.
[2021-01-01 08:00] VITALS: BP 141/62
[2021-01-01] MEDS: ASPIRIN 81 MG TAB.CHEW GT SCH (08:52)
[2021-01-01] MEDS: APIXABAN 2.5 MG TAB GT SCH (08:52)
[2021-01-01] MEDS: FAMOTIDINE 20 MG TAB GT SCH (09:06)
[2021-01-01] MEDS: VALPROIC ACID 250 MG/5 ML UDC GT SCH (09:07)
[2021-01-01] MEDS: DOCUSATE 100 MG/10 ML UDC GT SCH (09:08)
--- NOTE | 2021-01-01 09:09 | NUR ---
PATIENT AWAKE. NO ACUTE DISTRESS NOTED. SCHEDULED MEDICATION GIVE. PATIENT HAD 5 ML OF RESIDUAL FROM G-TUBE. CALL LIGHT WITHIN REACH. ALL SAFETY AND SEIZURE PRECAUTIONS IN PLACE. WILL CONTINUE TO MONITOR.
--- NOTE | 2021-01-01 10:30 | NUR ---
FOLLOWED UP WITH SUZIE FROM PICC LINE SERVICES, STATED YANIRA WILL CALL FOR ETA. ZAC ASSIGNED MADE AWARE.
[2021-01-01] MEDS: LORazepam 1 MG TAB PO PRN ×2 (11:18→11:30)
--- NOTE | 2021-01-01 11:35 | NUR ---
PATIENT AWAKE. NO ACUTE DISTRESS NOTED. SKILLED TRADES TEACHER AT BEDSIDE AIDING PATIENT WITH ADLS. CALL LIGHT WITHIN REACH. ALL SAFETY AND SEIZURE PRECAUTIONS IN PLACE. WILL CONTINUE TO MONITOR.
--- NOTE | 2021-01-01 11:49 | NUR ---
01/01/21 RD FOLLOW UP COMPLETED PLEASE REFER TO NUTRITION ASSESSMENT UNDER CARE ACTIVITY FOR ESTIMATED NUTRITIONAL NEEDS. 1.CONTINUE GLUCERNA 1.2 @ 60 ML/HR TOLERATED -THIS WILL PROVIDE 1440 ML OF VOLUME, 1159 ML OF FREE WATER, 1728 KCAL/DAY AND 86 GM OF PROTEIN/DAY, WHICH IS ADEQUATE TO MEET 100% OF ESTIMATED NUTRITIONAL NEEDS 2. CONTINUE FREE WATER FLUSH OF [address] TO FOLLOW-UP 2-3 DAYS, HIGH RISK REVIEWED BY SARA WING RD
[2021-01-01 12:00] VITALS: BP 139/76
[2021-01-01] MEDS ORDERED: [UNRECOGNIZED DRUG - CODE] IV (13:22)
[2021-01-01] MEDS ORDERED: MERO1VIA15 IV (13:22)
--- NOTE | 2021-01-01 13:27 | NUR ---
PATIENT SLEEPING. NO ACUTE DISTRESS NOTED. BREATHING EVEN AND UNLABORED. CALL LIGHT WITHIN REACH. ALL SAFETY AND SEIZURE PRECAUTIONS IN PLACE. WILL CONTINUE TO MONITOR.
--- NOTE | 2021-01-01 14:05 | NUR ---
PICC LINE NURSE AT BEDSIDE.
--- NOTE | 2021-01-01 14:40 | NUR ---
CALLED [facility] TO GIVE TO REPORT TO NENA MATHEWS.
[2021-01-01 16:00] VITALS: BP 103/52
--- NOTE | 2021-01-01 16:10 | NUR ---
PATIENT SLEEPING. NO ACUTE DISTRESS NOTED. BREATHING EVEN AND UNLABORED. CALL LIGHT WITHIN REACH. ALL SAFETY AND SEIZURE PRECAUTIONS IN PLACE. WILL CONTINUE TO MONITOR.
[2021-01-01 16:17] VITALS: BP 103/52
--- NOTE | 2021-01-01 17:45 | NUR ---
PATIENT AWAKE. VS STABLE. NO ACUTE DISTRESS NOTED. DISCHARGE INFORMATION PROVIDED. ALL DOCUMENTS GIVEN TO PATIENT. WRISTBAND REMOVED. ALL BELONGING TAKEN WITH PATIENT. PATIENTS TRANSPORTED VIA GURNEY BY [facility].
== END 2021-01-01 17:45 | DRG 871 ==
LOC: MED 11:13 → MTU 14:17
PROVIDERS: ADMIT Internal Medicine Cardiovascular Disease; ATTEND Internal Medicine Cardiovascular Disease
PROC: 02HV33Z Insertion of Infusion Device into Superior Vena Cava, Percutaneous Approach (ICD-10-PCS; principal; 2021-01-01)
DX: A41.89 Other specified sepsis (principal); E43 Unspecified severe protein-calorie malnutrition; J18.9 Pneumonia, unspecified organism; D61.818 Other pancytopenia; E87.1 Hypo-osmolality and hyponatremia; A04.72 Enterocolitis due to Clostridium difficile, not specified as recurrent; E87.0 Hyperosmolality and hypernatremia; N13.6 Pyonephrosis; Z16.12 Extended spectrum beta lactamase (ESBL) resistance; K59.2 Neurogenic bowel, not elsewhere classified; E11.65 Type 2 diabetes mellitus with hyperglycemia; F03.90 Unspecified dementia, unspecified severity, without behavioral disturbance, psychotic disturbance, mood disturbance, and anxiety; R74.01 Elevation of levels of liver transaminase levels; R13.10 Dysphagia, unspecified; I10 Essential (primary) hypertension; R10.13 Epigastric pain; B96.4 Proteus (mirabilis) (morganii) as the cause of diseases classified elsewhere; I25.10 Atherosclerotic heart disease of native coronary artery without angina pectoris; R79.89 Other specified abnormal findings of blood chemistry; N31.9 Neuromuscular dysfunction of bladder, unspecified; E86.0 Dehydration; G80.9 Cerebral palsy, unspecified; Z20.822 Contact with and (suspected) exposure to COVID-19; G40.909 Epilepsy, unspecified, not intractable, without status epilepticus; Z86.73 Personal history of transient ischemic attack (TIA), and cerebral infarction without residual deficits; Z89.511 Acquired absence of right leg below knee; Z93.1 Gastrostomy status; Z68.23 Body mass index [BMI] 23.0-23.9, adult; Z79.899 Other long term (current) drug therapy; Z79.82 Long term (current) use of aspirin
CPT/HCPCS: 36415; 51702; 71045; 74150; 76700; 76770; 80048; 80053; 80202; 81001; 83605; 83735; 84100; 85025; 85651; 86140; 87040; 87081; 87086; 96361; 96365; 99291; J0456; J0696; J2185; J2543; J3370; J7060; Q0092; U0003

== ENCOUNTER 2021-01-13 12:21 | Inpatient (IN) | payer OTHER, MEDICAID ==
[~2021-01-13] VITALS: Ht 160 cm; Wt 59.9 kg
[~2021-01-13 12:21] MED LIST changes: +ACET-2619 GT; +GLUC1VIA; -LEVO-315 GT; +MERO1VIA15 IV; +ROB PO; +VALP-22 GT; +[UNRECOGNIZED DRUG - CODE] IV
[2021-01-13 12:30] VITALS: BP 124/69
--- NOTE | 2021-01-13 13:22 | NUR ---
70 Y/O M BIBA FROM [facility], PATIENT PRESENTS TO ED WITH SOB, [facility] STATES FACILITY WAS REPORTING O2 SATURATION 90% ON RA, PT WAS PUT ON 2L SATURATION AT 94%. PT IS NON VERBAL, NON AMBULATORY, AND INCONTINENT AT BASELINE. FACILITY REPORTS NO N/V/D; SKIN IS PINK/COOL/DRY; GCS 13; LUNG CRACKLES BL AT BASES INSPIRATORY AND EXPIRATORY; HR EVEN AND TACHY AT 95; PATIENT POSITIONED FOR COMFORT; HOB ELEVATED; BEDRAILS UP X2; BED DOWN. ER MD MADE AWARE OF PT STATUS. G-TUBE IN PLACE. PMH: CEREBRAL PALSY, SCHIZOPHRENIA, DM2, PNEUMONIA NKA
--- NOTE | 2021-01-13 13:45 | NUR ---
QUENTIN SWABBED AND TAKEN TO LAB. LEFT SAMPLE WITH KACEY YOUNG
--- NOTE | 2021-01-13 13:58 | NUR ---
X-Ray at bedside.
[2021-01-13 14:37] LABS: BASOPHILS % (AUTO) 0.3 % (0.0-2.0); EOSINOPHILS # (AUTO) 0.1 K/uL (0-0.4); EOSINOPHILS % (AUTO) 1.8 % (0.0-4.0); HEMATOCRIT 24.3 % (36-52); HEMOGLOBIN 7.9 g/dL (12.0-18.0); LYMPHOCYTES # (AUTO) 0.9 K/uL (2.0-11.5); LYMPHOCYTES % (AUTO) 20.5 % (20.5-51.1); MEAN CORPUSCULAR HEMOGLOBIN 31 pg (27-31); MEAN CORPUSCULAR HGB CONC 33 g/dL (33-37); MEAN CORPUSCULAR VOLUME 95.2 fL (80-94); MONOCYTES # (AUTO) 0.3 K/uL (0.8-1.0); MONOCYTES % (AUTO) 7.6 % (1.7-9.3); NEUTROPHILS % (AUTO) 69.8 % (42.2-75.2); PLATELET COUNT (AUTO) 237 K/uL (140-450); RED BLOOD CELL COUNT(AUTO) 2.55 MIL/uL (4.20-6.10); RED CELL DISTRIBUTION WIDTH 16.7 % (11.6-13.7); WHITE BLOOD COUNT (AUTO) 4.3 K/uL (4.8-10.8)
[2021-01-13 14:45] LABS: CARBON DIOXIDE 33.3 mmol/L (21-32); CREATININE 1.2 mg/dL (0.6-1.3); POTASSIUM 5.3 mmol/L (3.5-5.1)
[2021-01-13] MEDS ORDERED: CEFEPIME 1,000 MG in DEXTROSE 5% 50 ML IV ONE (16:25)
[2021-01-13] MEDS ORDERED: VANCOMYCIN PER PHARMACY MC PRN (16:25)
--- NOTE | 2021-01-13 16:53 | NUR ---
UNABLE TO OBTAIN IV ACCESS, ATTEMPTED BY 2RNS, DR BELLO MADE AWARE. ULTRASOUND AT BEDSIDE.
[2021-01-13] MEDS: DEXT 5% / NACL 0.45% 1,000 ML IV SCH (18:21)
[2021-01-13] MEDS ORDERED: CEFEPIME 1,000 MG VIAL ONE (18:32)
--- NOTE | 2021-01-13 19:05 | NUR ---
REPORT GIVEN TO JACINTA ACOSTA
--- NOTE | 2021-01-13 20:54 | NUR ---
PATIENT TRANSFERED TO FLOOR ROOM 112 A ENDORSED CARE TO KATHI RN VITALS SIGNS IN NORMAL LIMITS //DiCaprio RN
[2021-01-14 01:03] VITALS: BP 140/86
[2021-01-14] MEDS: DEXT 5% / NACL 0.45% 1,000 ML IV SCH ×3 (03:20→22:05)
--- NOTE | 2021-01-14 03:23 | NUR ---
the pateintb was admitted for SOb, breathing is even and unlabored. the pateint is anxious , no verbal o2 stat is 99% on NC 3L The pateint has hx of cerebral palsy, hyperlipidema,. bipolar, and schizophrenia. his vitals are stable. no complain of pain or respiratory distress. comfort and safety measures are provided.bed is low position
[2021-01-14 04:00] VITALS: BP 125/69
--- NOTE | 2021-01-14 07:20 | NUR ---
RECEIVED BEDSIDE REPORT FROM FOOD ASSEMBLER KITCHEN NURSE FOR CONTINUITY OF CARE. PT IS ASLEEP. CHEST RISE AND FALL IS SYMMETRICAL. CRACKLES IN LUNGS AUDIBLE. PT IS NONVERBAL. SR ON TELE MONITOR. O2 SAT IS 99%. G TUBE IN PLACE WITH NO FEEDING INFUSING. SKIN IS WARM, DRY, AND INTACT. IV IS IN THE RIGHT AC 20 GAUGE RUNNING FLUIDS ORDERED. PT IS STABLE. PLAN OF CARE DISCUSSED.
[2021-01-14 08:00] VITALS: BP 132/70
--- NOTE | 2021-01-14 08:22 | NUR ---
PATIENT HAS BEEN SCREENED AND CATEGORIZED HIGH NUTRITION RISK. PATIENT WILL BE SEEN WITHIN 1-2 DAYS OF ADMISSION. 01/14/21-01/15/21 REFERRAL RECEIVED FOR TUBE FEEDING [address]
--- NOTE | 2021-01-14 09:30 | NUR ---
PT WAS CHANGED AND REPOSITIONED. PILLOWS USED TO SUPPORT BONY REGIONS. NO RESPIRATORY DISTRESS NOTED. CRACKLES IN LUNGS AUDIBLE. O2 SAT IS 99% ON 4L O2 NC. WILL CONTINUE TO MONITOR PT.
--- NOTE | 2021-01-14 11:30 | NUR ---
ROUNDED ON PT. HE IS ASLEEP IN SEMI FOWLERS POSITION. NO DISTRESS NOTED. BREATHING IS UNLABORED. ON TELE MONITOR. PT IS STABLE.
[2021-01-14 12:00] VITALS: BP 129/71
--- NOTE | 2021-01-14 13:30 | NUR ---
PT WAS CHANGED HE SOILED HIS DIAPER WITH URINE. PT WAS CLEANED AND NEW DIAPER WAS PLACED. NEW LINENS WERE PROVIDED. PT IS STABLE AT THIS TIME. WILL CONTINUE TO MONITOR.
[2021-01-14] MEDS ORDERED: HYDROcodone/APAP 5/325 MG 1 TAB TAB GT PRN (15:15)
[2021-01-14] MEDS ORDERED: ALBUTEROL 0.083% 2.5 MG/3 ML NEBU INH PRN (15:15)
[2021-01-14] MEDS ORDERED: ONDANSETRON 4 MG/2 ML VIAL IVP PRN (15:15)
[2021-01-14] MEDS ORDERED: guaiFENesin 20 MG/ML UDC GT PRN (15:15)
[2021-01-14] MEDS ORDERED: LORazepam 1 MG TAB PO PRN (15:15)
[2021-01-14] MEDS ORDERED: ACETAMINOPHEN 325 MG TAB GT PRN (15:15)
[2021-01-14] MEDS ORDERED: bisacodyL 10 MG SUPP RC PRN (15:15)
[2021-01-14] MEDS ORDERED: POLYETHYLENE GLYCOL 17 GM/PKT GT PRN (15:15)
--- NOTE | 2021-01-14 15:30 | NUR ---
PT IS SLEEPING. CHEST RISE AND FALL SYMMETRICAL. ON 4L O2 NC WITH BREATHING UNLABORED. FLACC 0. IV IS PATENT AND INTACT. WILL CONTINUE TO MONITOR.
[2021-01-14 16:00] VITALS: BP 146/64
--- NOTE | 2021-01-14 19:00 | NUR ---
RECEIVED VERBAL ORDER FOR ZOSYN 3.[address] EARLY. ALL QUESTIONS ANSWERED.
--- NOTE | 2021-01-14 19:31 | NUR ---
ENDORSED PT TO TRIP MOTOR OPERATOR NURSE FOR CONTINUITY OF CARE. PT IS STABLE. PLAN OF CARE DISCUSSED.
[2021-01-14 20:00] VITALS: BP 142/68
[2021-01-14] MEDS ORDERED: CIT AC GT SCH (21:00)
[2021-01-14] MEDS ORDERED: POTASSIUM BICARBONATE GT SCH (21:00)
[2021-01-14] MEDS: VALPROIC ACID 250 MG/5 ML UDC GT SCH (21:39)
[2021-01-14] MEDS: MIDODRINE 5 MG TAB PO SCH (21:40)
[2021-01-14] MEDS: QUEtiapine FUMARATE 100 MG TAB GT SCH (21:40)
[2021-01-14] MEDS: FAMOTIDINE 20 MG TAB GT SCH (21:41)
[2021-01-14] MEDS: APIXABAN 2.5 MG TAB GT SCH (21:44)
[2021-01-14] MEDS: PIPERACILLIN/TAZOBACTAM 3.375 GM in DEXTROSE 5% 50 ML IV SCH (21:44)
[2021-01-14] MEDS ORDERED: PIPERACILLIN/TAZOBACTAM 3.375 GM VIAL IV ONE (21:45)
[2021-01-15] VITALS: BP 138/72
[2021-01-15] MEDS: ALBUTEROL SULFATE/IPRATROPIU 3 ML SOL IH SCH ×4 (00:59→19:20)
[2021-01-15 04:00] VITALS: BP_SYST 123; BP_SYST 142; BP_DIAS 60; BP_DIAS 79
[2021-01-15] MEDS ORDERED: PIPERACILLIN/TAZOBACTAM 3.375 GM VIAL IV ONE (05:30)
[2021-01-15] MEDS: PIPERACILLIN/TAZOBACTAM 3.375 GM in DEXTROSE 5% 50 ML IV SCH ×3 (05:31→20:36)
[2021-01-15] MEDS: MIDODRINE 5 MG TAB PO SCH ×3 (05:31→20:35)
[2021-01-15 07:01] LABS: ALBUMIN 2.2 g/dL (3.4-5.0); BILIRUBIN,DIRECT 0.2 mg/dL (0.0-0.3); TOTAL BILIRUBIN 0.3 mg/dL (0.0-1.0)
--- NOTE | 2021-01-15 07:03 | NUR ---
the patient sleeps comfortable in his bed . he is quiet and calm. non verbal, breathing is even and unlabored po2 stat 99%on NC 2L. comfort and safety measures were provided.
[2021-01-15 07:14] LABS: ANION GAP 9.5 (8-16); BASOPHILS % (AUTO) 0.9 % (0.0-2.0); CARBON DIOXIDE 31.1 mmol/L (21-32); CREATININE 0.9 mg/dL (0.6-1.3); EOSINOPHILS # (AUTO) 0.2 K/uL (0-0.4); EOSINOPHILS % (AUTO) 6.5 % (0.0-4.0); HEMATOCRIT 24.2 % (36-52); HEMOGLOBIN 7.8 g/dL (12.0-18.0); LYMPHOCYTES # (AUTO) 1.1 K/uL (2.0-11.5); LYMPHOCYTES % (AUTO) 33.3 % (20.5-51.1); MEAN CORPUSCULAR HEMOGLOBIN 31 pg (27-31); MEAN CORPUSCULAR HGB CONC 32 g/dL (33-37); MEAN CORPUSCULAR VOLUME 95.7 fL (80-94); MONOCYTES # (AUTO) 0.4 K/uL (0.8-1.0); MONOCYTES % (AUTO) 12.2 % (1.7-9.3); NEUTROPHILS # (AUTO) 1.6 K/uL (1.8-7.7); NEUTROPHILS % (AUTO) 47.1 % (42.2-75.2); PLATELET COUNT (AUTO) 190 K/uL (140-450); POTASSIUM 4.6 mmol/L (3.5-5.1); RED BLOOD CELL COUNT(AUTO) 2.53 MIL/uL (4.20-6.10); RED CELL DISTRIBUTION WIDTH 16.7 % (11.6-13.7); WHITE BLOOD COUNT (AUTO) 3.4 K/uL (4.8-10.8)
[2021-01-15 07:20] LABS: MAGNESIUM 2.8 mg/dL (1.8-2.4); PHOSPHORUS 4.1 mg/dL (2.5-4.9)
--- NOTE | 2021-01-15 07:30 | NUR ---
RECEIVED BEDSIDE REPORT FROM TOOL AND DIE MAKER NURSE FOR CONTINUITY OF CARE. PT IS ASLEEP. CHEST RISE AND FALL SYMMETRICAL. BREATHING UNLABORED ON 2L O2 NC WITH O2 SAT AT 92%. PT IS BEDBOUND. SKIN IS WARM, DRY, AND INTACT. G TUBE IN PLACE WITH ABDOMINAL BINDER. PT IS STABLE. PLAN OF CARE DISCUSSED.
[2021-01-15 08:00] VITALS: BP 141/74
--- NOTE | 2021-01-15 08:00 | NUR ---
1ST TX OF THE DAY ATTEMPTED WITH WAS NOT COOPERATIVE. PT REFUSED TX, TRIED BLOW-BY TX HOWEVER PT BEGAN TRYING TO HIT MY ARM. PT WAS AGITATED WHILE TRYING TO ATTEMPT TX. DAVE AWARE. Addendum: 01/15/21 at 1417 by Gianna Garcia RT 1ST TX OF THE DAY ATTEMPTED, PT WAS NON-COOPERATIVE. PT REFUSED TX, TRIED BLOW-BY TX, HOWEVER PT BEGAN TRYING TO HIT MY ARM. PT WAS AGITATED WHILE TRYING TO ATTEMPT TX. DAVE AWARE.
[2021-01-15] MEDS: VALPROIC ACID 250 MG/5 ML UDC GT SCH ×2 (09:04→20:35)
[2021-01-15] MEDS: DOCUSATE 100 MG/10 ML UDC GT SCH (09:04)
[2021-01-15] MEDS: FAMOTIDINE 20 MG TAB GT SCH ×2 (09:05→20:36)
[2021-01-15] MEDS: ASPIRIN 81 MG TAB.CHEW GT SCH (09:05)
[2021-01-15] MEDS: APIXABAN 2.5 MG TAB GT SCH ×2 (09:06→20:35)
[2021-01-15] MEDS: DEXT 5% / NACL 0.45% 1,000 ML IV SCH ×2 (09:15→20:37)
--- NOTE | 2021-01-15 09:30 | NUR ---
PT IS AWAKE WITH EYES OPEN. PT MAKING NOISES, INCOMPREHENSIBLE. G TUBE IS INTACT AND RESIDUAL IS LESS THAN 5 ML. BREATHING IS UNLABORED. HOB IS 45 DEGREES. PT STABLE.
--- NOTE | 2021-01-15 11:30 | NUR ---
PT IS SLEEPING. CHEST RISE AND FALL SYMMETRICAL. NO DISTRESS NOTED. PT IS STABLE.
--- NOTE | 2021-01-15 11:42 | NUR ---
RECEIVED TELEPHONE ORDER TO START G TUBE FEEDING GLUCERNA 1.2 AT 55 ML/HR AND WATER FLUSHES 150 ML Q 6H.
--- NOTE | 2021-01-15 11:48 | NUR ---
01/15/21 RD INITIAL ASSESSMENT COMPLETED PLEASE REFER TO NUTRITION ASSESSMENT UNDER CARE ACTIVITY FOR ESTIMATED NUTRITIONAL NEEDS. 1. RECOMMEND GLUCERNA 1.2 @ 55 ML/HR WITH WATER FLUSH 150 Q6H -WILL PROVIDE 1584 KCAL, 79 GM PROTEIN AND 1663 ML WATER, MEETING 100% OF ESTIMATED NUTRIENT GOALS -RECOMMEND START FROM 20 ML/HR AND INCREASE BY 20 ML/HR Q4H PT TOLERATES 2. RD TO FOLLOW-UP 2-3 DAYS, HIGH RISK LESLEY STOUT RD
[2021-01-15 12:00] VITALS: BP 139/56
--- NOTE | 2021-01-15 13:00 | NUR ---
MIDODRINE WAS NOT GIVEN ORDERED BECAUSE BP WAS WNL. BP WAS 139/56 AND HR 82. WILL CONTINUE TO MONITOR.
--- NOTE | 2021-01-15 13:05 | NUR ---
PT VOIDED IN DIAPER. PT WAS CHANGED AND REPOSITIONED. PILLOWS USED TO OFFSET PRESSURE FROM BONY REGIONS.
--- NOTE | 2021-01-15 13:55 | NUR ---
Pt tore off tx and tossed it across the bed. Pt refused tx, RN came to bedside.
[2021-01-15] MEDS: LORazepam 2 MG/ML VIAL IVP PRN (14:03)
--- NOTE | 2021-01-15 14:04 | NUR ---
PT WAS VERY AGITATED; PULLING OFF NC, PULLING OFF DIAPER, AND PULLING ON G TUBE. PT WAS GIVEN ATIVAN IVP ORDERED FOR ANXIETY. BP WAS STABLE PRIOR TO ADMINISTRATION OF MEDICATION.
[2021-01-15 16:00] VITALS: BP 123/63
--- NOTE | 2021-01-15 16:00 | NUR ---
PT IS ASLEEP. PT VOIDED IN DIAPER AND WAS CHANGED/ REPOSITIONED. PT APPEARS TO BE CALM. NO DISTRESS NOTED ON 2L O2 NC. WILL MONITOR PT.
--- NOTE | 2021-01-15 19:20 | NUR ---
PT LYING IN BED AWAKE W/ NO SIGNS OF RESPIRATORY DISTRESS SATING 98% ON 2 LPM N/C. TX WAS TOLERATED WELL VIA NEBULIZER W/MASK. WILL CONTINUE TO MONITOR.
--- NOTE | 2021-01-15 19:30 | NUR ---
ENDORSED PT TO SCRUM MASTER NURSE FOR CONTINUITY OF CARE. PT IS STABLE AT THIS TIME. PLAN OF CARE DISCUSSED.
[2021-01-15 20:00] VITALS: BP 125/69
[2021-01-15] MEDS: QUEtiapine FUMARATE 100 MG TAB GT SCH (20:33)
--- NOTE | 2021-01-15 23:21 | NUR ---
the patient is calm and quite. sleeps comftable in his bed. tolerating well to the tube feeding. vitals are stable. his o2 stat is 1005 on NC 2L.bed is in low position. comfort and safety measures are provided.
[2021-01-16 00:16] VITALS: BP 124/72
[2021-01-16] MEDS: ALBUTEROL SULFATE/IPRATROPIU 3 ML SOL IH SCH ×4 (01:50→19:01)
[2021-01-16 04:00] VITALS: BP 129/76
[2021-01-16] MEDS: PIPERACILLIN/TAZOBACTAM 3.375 GM in DEXTROSE 5% 50 ML IV SCH ×4 (05:04→21:30)
[2021-01-16] MEDS: LORazepam 2 MG/ML VIAL IVP PRN (05:05)
[2021-01-16] MEDS: MIDODRINE 5 MG TAB PO SCH ×3 (05:05→21:00)
--- NOTE | 2021-01-16 07:06 | NUR ---
the patient was anxious and agitated at 0430. ativan was given . she sleeps comfortable in his bed . no signs or symptoms of agitaion agitations
[2021-01-16 07:11] LABS: BASOPHILS % (AUTO) 0.9 % (0.0-2.0); EOSINOPHILS # (AUTO) 0.3 K/uL (0-0.4); EOSINOPHILS % (AUTO) 7.2 % (0.0-4.0); HEMATOCRIT 20.9 % (36-52); LYMPHOCYTES % (AUTO) 28.8 % (20.5-51.1); MEAN CORPUSCULAR HEMOGLOBIN 31 pg (27-31); MEAN CORPUSCULAR HGB CONC 32 g/dL (33-37); MEAN CORPUSCULAR VOLUME 96.7 fL (80-94); MONOCYTES # (AUTO) 0.4 K/uL (0.8-1.0); NEUTROPHILS # (AUTO) 1.8 K/uL (1.8-7.7); NEUTROPHILS % (AUTO) 51.1 % (42.2-75.2); PLATELET COUNT (AUTO) 186 K/uL (140-450); RED BLOOD CELL COUNT(AUTO) 2.16 MIL/uL (4.20-6.10); RED CELL DISTRIBUTION WIDTH 16.6 % (11.6-13.7); WHITE BLOOD COUNT (AUTO) 3.6 K/uL (4.8-10.8)
[2021-01-16 07:16] LABS: MAGNESIUM 2.5 mg/dL (1.8-2.4); PHOSPHORUS 4.5 mg/dL (2.5-4.9)
[2021-01-16 07:21] LABS: ANION GAP 7.1 (8-16); CREATININE 0.9 mg/dL (0.6-1.3); POTASSIUM 4.1 mmol/L (3.5-5.1); TOTAL BILIRUBIN 0.2 mg/dL (0.0-1.0)
[2021-01-16 07:36] LABS: HEMOGLOBIN 6.7 g/dL (12.0-18.0)
[2021-01-16 08:00] VITALS: BP 140/73
[2021-01-16] MEDS: VALPROIC ACID 250 MG/5 ML UDC GT SCH ×2 (09:24→21:31)
[2021-01-16] MEDS: DOCUSATE 100 MG/10 ML UDC GT SCH (09:25)
[2021-01-16] MEDS: FAMOTIDINE 20 MG TAB GT SCH ×2 (09:25→21:34)
[2021-01-16] MEDS: ASPIRIN 81 MG TAB.CHEW GT SCH (09:25)
[2021-01-16] MEDS: APIXABAN 2.5 MG TAB GT SCH (09:29)
--- NOTE | 2021-01-16 11:40 | NUR ---
Patient's brother Kannan Epstein called back and received verbal consent for blood transfusion. Consent verified by 2 RNs.
[2021-01-16 12:00] VITALS: BP 136/72
--- NOTE | 2021-01-16 12:15 | NUR ---
Initiated transfusion of 1 unit PRBC. Pt resting in bed, awake, nonverbal, no signs of distress, respirations even & nonlabored.
[2021-01-16] MEDS: SENNA 8.6 MG TAB PO SCH ×2 (12:45→17:36)
[2021-01-16] MEDS: POLYETHYLENE GLYCOL 17 GM/PKT GT SCH ×2 (12:45→21:32)
--- NOTE | 2021-01-16 14:35 | NUR ---
DC PLANNING: THE PATIENT ADMITTED FROM [facility] WITH C/O SOB AND HYPOXEMIA, SATURATIONS IN ED WERE 90%. THE PATIENT HAS A H/O DYSPHAGIA WITH A PEG, CEREBRAL PALSY, DM AND SCHIZOPHRENIA. THE PATIENT WAS PLACE ON O2 AND HAD DEEP SUCTIONING WHICH IMPROVED HIS SATS TO 94%. ID CONSULT DONE WITH BLOOD AND SPUTUM CULTURES ORDERED, BLOOD CULTURES NEGATIVE, UNABLE TO DO SPUTUM CULTURES THE PATIENT HAS NOT HAD SECRETIONS TO CULTURE. CXR SHOWED INFILTRATES, THE PATIENT WAS STARTED ON ZOSYN IV. THE PATIENT COMES FROM [facility], THE USABILITY ENGINEER IS JASON MELCHOR. HE IS WC BOUND AND ASSISTS SOMEWHAT WITH DRESSING WHEN HE IS ABLE, AND IS PRIMARILY NON-VERBAL. GIRMA SPOKE WITH JASON TO ENDORSE THAT THE PATIENT MIGHT DC TOMORROW, SHE STATES THAT SHE SHOULD BE CALLED TO ARRANGE TRANSPORT, HER NUMBER IS [phone]. DC PLAN IS FOR THE PATIENT TO RETURN TO [facility] AT [facility] WHEN CLINICALLY STABLE, CM WILL FOLLOW FOR NEEDS. Addendum: 01/18/21 at 1333 by Destiny Washington CM DC PLANNING: ORDER RECEIVED FOR SNF PLACEMENT FOR IV ABX. GIRMA SPOKE WITH DR EARLY, PATIENT TO CONTINUE ON ZOSYN AT CURRENT DOSE TID X 4 MORE DAYS. GIRMA SPOKE WITH JASON MELCHOR FROM [facility], ASKED THAT PATIENT BE REFERRED TO [facility] OR [facility]. [facility] HAS NO PRACTICE PROFESSIONAL UNTIL THURSDAY, GIRMA SPOKE WITH [facility], REFERRAL FAXED TO HER. THE PATIENT HAS BEEN ACCEPTED TO [address] NASREEN SARABIA, NUMBER TO CALL REPORT IS [phone]. [facility] TO ARRANGE TRANSPORT, GIRMA REQUESTED A 1700 FRONT OFFICE SPEC TIME AND IS WAITING FOR CONFIRMATION. GIRMA SPOKE WITH THE PATIENTS DAVE BAR TO ENDORSE ABOVE, WILL FOLLOW FOR NEEDS. Addendum: 01/18/21 at 1359 by Destiny Washington [place] PLANNING: [facility] ARRANGED WITH [facility] BY [facility] FOR 1700 FRONT OFFICE SPEC. PHONE NUMBER FOR TRANSPORT IS [phone]. GIRMA WILL FOLLOW FOR NEEDS.
--- NOTE | 2021-01-16 14:45 | NUR ---
Blood transfusion completed. No signs of transfusion reactions. Patient is awake, no signs of distress, respirations even & nonlabored, FLACC 0. Resumed IVF D5 1/2NS @ 50mL/hr.
[2021-01-16 16:00] VITALS: BP 142/79
[2021-01-16 18:05] LABS: BASOPHILS % (AUTO) 1.1 % (0.0-2.0); EOSINOPHILS # (AUTO) 0.3 K/uL (0-0.4); EOSINOPHILS % (AUTO) 8.5 % (0.0-4.0); HEMATOCRIT 28.5 % (36-52); HEMOGLOBIN 9.2 g/dL (12.0-18.0); LYMPHOCYTES # (AUTO) 0.9 K/uL (2.0-11.5); LYMPHOCYTES % (AUTO) 31.5 % (20.5-51.1); MEAN CORPUSCULAR HEMOGLOBIN 31 pg (27-31); MEAN CORPUSCULAR HGB CONC 33 g/dL (33-37); MEAN CORPUSCULAR VOLUME 95.1 fL (80-94); MONOCYTES # (AUTO) 0.4 K/uL (0.8-1.0); MONOCYTES % (AUTO) 12.2 % (1.7-9.3); NEUTROPHILS # (AUTO) 1.4 K/uL (1.8-7.7); NEUTROPHILS % (AUTO) 46.7 % (42.2-75.2); PLATELET COUNT (AUTO) 176 K/uL (140-450); RED BLOOD CELL COUNT(AUTO) 2.99 MIL/uL (4.20-6.10); RED CELL DISTRIBUTION WIDTH 16.1 % (11.6-13.7)
--- NOTE | 2021-01-16 18:22 | NUR ---
Patient resting in bed, awake, nonverbal, able to nod/shake head in response to simple questions. GT intact with ongoing Glucerna 1.2 @ 55mL/hr. Right AC IV 18G intact and asymptomatic with ongoing D5 0.45% NS @ 50mL/hr. HOB remains elevated @ 35.
--- NOTE | 2021-01-16 19:01 | NUR ---
PT LYING IN BED AWAKE W/ NO SIGNS OF RESPIRATORY DISTRESS SATING 100% ON 2 LPM N/C. TX WAS TOLERATED WELL VIA NEBULIZER W/MASK. WILL CONTINUE TO MONITOR.
--- NOTE | 2021-01-16 19:15 | NUR ---
RECEIVED BEDSIDE REPORT FROM AM NURSE. PATIENT IS AWAKE, NON VERBAL WITH HEAD OF BED ELEVATED. O2 AT 1.5 NC SATING AT 97%. NO S/S OF RESPIRATORY FAILURE. RESPIRATION EVEN UNLABORED. ALL SAFETY PRECAUTIONS ARE IN PLACE. IVF D51/2 NS INFUSING AT 50 ML ON THE RAC. G-TUBE FEEDING RUNNING AT 55 ML. SKIN WARM AND DRY TO THE TOUCH. CALL LIGHT WITHIN REACH.
[2021-01-16 20:00] VITALS: BP 137/68
--- NOTE | 2021-01-16 21:31 | NUR ---
ALL SCHEDULED MEDS AT 2100 ARE GIVEN. PATIENT IS STABLE.
[2021-01-16] MEDS: QUEtiapine FUMARATE 100 MG TAB GT SCH (21:34)
[2021-01-16] MEDS: DEXT 5% / NACL 0.45% 1,000 ML IV SCH (22:29)
[2021-01-17] VITALS: BP 100/61
[2021-01-17] MEDS: ALBUTEROL SULFATE/IPRATROPIU 3 ML SOL IH SCH ×4 (01:33→19:00)
--- NOTE | 2021-01-17 03:10 | NUR ---
PATIENT CHANGED, CLEANED AND REPOSITIONED
[2021-01-17 04:00] VITALS: BP 144/70
[2021-01-17] MEDS: PIPERACILLIN/TAZOBACTAM 3.375 GM in DEXTROSE 5% 50 ML IV SCH ×3 (04:57→21:54)
[2021-01-17] MEDS: MIDODRINE 5 MG TAB PO SCH ×3 (05:00→21:53)
[2021-01-17 06:53] LABS: ANION GAP 8.3 (8-16); CREATININE 0.8 mg/dL (0.6-1.3); POTASSIUM 4.3 mmol/L (3.5-5.1)
[2021-01-17 06:55] LABS: MAGNESIUM 2.2 mg/dL (1.8-2.4)
[2021-01-17 07:15] LABS: BASOPHILS % (AUTO) 0.6 % (0.0-2.0); EOSINOPHILS # (AUTO) 0.3 K/uL (0-0.4); EOSINOPHILS % (AUTO) 10.4 % (0.0-4.0); HEMATOCRIT 24.4 % (36-52); LYMPHOCYTES # (AUTO) 1.1 K/uL (2.0-11.5); MEAN CORPUSCULAR HEMOGLOBIN 31 pg (27-31); MEAN CORPUSCULAR HGB CONC 33 g/dL (33-37); MEAN CORPUSCULAR VOLUME 94.2 fL (80-94); MONOCYTES # (AUTO) 0.4 K/uL (0.8-1.0); MONOCYTES % (AUTO) 12.3 % (1.7-9.3); NEUTROPHILS # (AUTO) 1.2 K/uL (1.8-7.7); NEUTROPHILS % (AUTO) 40.7 % (42.2-75.2); PLATELET COUNT (AUTO) 153 K/uL (140-450); RED BLOOD CELL COUNT(AUTO) 2.59 MIL/uL (4.20-6.10); WHITE BLOOD COUNT (AUTO) 2.9 K/uL (4.8-10.8)
--- NOTE | 2021-01-17 07:29 | NUR ---
RECEIVED REPORT FROM WEED SCIENCE RESEARCH TECHNICIAN NURSE FOR CONTINUITY OF CARE. PATIENT IS IN BED SLEEPING AT THIS TIME. RESPIRATIONS ARE EVEN AND UNLABORED. PATIENT IS ON 1.5L 02 VIA NC WITH 02 SAT AT 96%. PATIENT HAS G TUBE IN PLACE, WITH FEEDING OF GLUCERNA 1.2 @ 55 ML/HR. PATIENT HAS IV TO R AC 18G. IV IS INTACT AND PATIENT. IV INFUSING D5 0.45NS AT 50 ML/HR. SKIN IS WARM, DRY, AND INTACT. NO SIGNS OF DISTRESS NOTED. CALL LIGHT WITHIN REACH. ALL SAFETY MEASURES IN PLACE. WILL CONTINUE TO MONITOR.
--- NOTE | 2021-01-17 07:30 | NUR ---
BEDSIDE ENDORSEMENT GIVEN TO AM NURSE FOR CONTINUITY OF CARE. PT IS STABLE.
[2021-01-17 08:00] VITALS: BP 144/70
[2021-01-17] MEDS: DOCUSATE 100 MG/10 ML UDC GT SCH (08:48)
[2021-01-17] MEDS: SENNA 8.6 MG TAB PO SCH ×3 (08:49→17:43)
[2021-01-17] MEDS: POLYETHYLENE GLYCOL 17 GM/PKT GT SCH ×2 (08:49→21:53)
[2021-01-17] MEDS: VALPROIC ACID 250 MG/5 ML UDC GT SCH ×2 (08:49→21:52)
[2021-01-17] MEDS: FAMOTIDINE 20 MG TAB GT SCH ×2 (08:49→21:53)
--- NOTE | 2021-01-17 08:49 | NUR ---
ADMINISTERED ALL SCHEDULED MEDICATIONS. INFORMED PATIENT OF MEDICATIONS BEING ADMINISTERED AND SIDE EFFECTS OF MEDICATIONS ADMINISTERED. NO RESPONSE FROM PATIENT. PATIENT TOLERATED WELL.
[2021-01-17 09:06] LABS: FERRITIN 65 ng/mL (30-400); IMMUNOGLOBULIN M 167 mg/dL (20-172)
[2021-01-17 09:06] LABS: FERRITIN 67 ng/mL (30-400); LACTATE DEHYDROGENASE 161 IU/L (121-224)
--- NOTE | 2021-01-17 11:05 | NUR ---
PATIENT HAD A LARGE BM. ASSISTED WITH CHANGING AND REPOSITIONING PATIENT. PATIENT TOLERATED WELL. WILL CONTINUE TO MONITOR.
[2021-01-17 12:00] VITALS: BP 142/85
--- NOTE | 2021-01-17 12:29 | NUR ---
ALL SCHEDULED MEDICATIONS ADMINISTERED. PATIENT TOLERATED WELL. WILL CONTINUE TO MONITOR.
--- NOTE | 2021-01-17 12:59 | NUR ---
01/17/21 RD FOLLOW UP COMPLETED PLEASE REFER TO NUTRITION PROGRESS NOTE UNDER CARE ACTIVITY FOR ESTIMATED NUTRITION NEEDS. RD RECOMMENDATIONS: 1. CONTINUE GLUCERNA 1.2 @ 55 ML/HR WITH WATER FLUSH 150 Q6H -WILL PROVIDE 1584 KCAL, 79 GM PROTEIN AND 1663 ML WATER, MEETING 100% OF ESTIMATED NUTRIENT GOALS 2. RD TO FOLLOW-UP 2-3 DAYS, HIGH RISK VEE QIU, RD
--- NOTE | 2021-01-17 13:45 | NUR ---
IV ANTIBIOTIC ZOSYN, ADMINISTERED BY RN. WILL CONTINUE TO MONITOR.
[2021-01-17 16:00] VITALS: BP 125/71
--- NOTE | 2021-01-17 16:35 | NUR ---
PATIENT HAD ANOTHER LARGE BM. ASSISTED WITH CHANGING, BED BATH, AND REPOSITIONING. PATIENT TOLERATED WELL. WILL CONTINUE TO MONITOR.
--- NOTE | 2021-01-17 19:12 | NUR ---
ENDORSED PATIENT TO DIPLOMA MEDICAL ASSISTANT NURSE. PATIENT STABLE.
--- NOTE | 2021-01-17 19:13 | NUR ---
RECEIVED REPORT FROM AM SHIFT NURSE FOR CONTINUITY OF CARE. PATIENT ON BED SLEEPING. NO S/S OF DISTRESS. RESPIRATIONS ARE EVEN AND UNLABORED. PATIENT IS ON 3L 02 VIA NC. PATIENT HAS IV TO RIGHT AC 18G, INTACT AND PATENT, FLUIDS INFUSING WELL. PATIENT HAS G TUBE IN PLACE, WITH FEEDING OF GLUCERNA 1.2 @ 55 ML/HR. SKIN IS WARM, DRY, AND INTACT. CALL LIGHT WITHIN REACH. ALL SAFETY MEASURES IN PLACE. WILL CONTINUE TO MONITOR.
[2021-01-17 20:00] VITALS: BP 149/86
[2021-01-17 21:04] LABS: IMMUNOGLOBULIN A 946 mg/dL (70 - 400); IMMUNOGLOBULIN G 2402 mg/dL (700 - 1600)
--- NOTE | 2021-01-17 21:52 | NUR ---
SCHEDULED MEDS GIVEN ORDERED, PT TOLERATED IT WELL. WILL CONTINUE TO MONITOR.
[2021-01-17] MEDS: QUEtiapine FUMARATE 100 MG TAB GT SCH (21:53)
--- NOTE | 2021-01-17 23:57 | NUR ---
CHECKED ON PT, NO S/S OF DISTRESS. RESPIRATIONS EVEN AND UNLABORED. REPOSITIONED PT. ALL SAFETY MEASURES IN PLACE. WILL CONTINUE TO MONITOR.
[2021-01-18] VITALS: BP 108/63
[2021-01-18] MEDS: ALBUTEROL SULFATE/IPRATROPIU 3 ML SOL IH SCH ×3 (01:30→13:24)
--- NOTE | 2021-01-18 01:43 | NUR ---
O2 lowered to 2L/min. Pt gulshan change well. No adverse rxn noted to treatments throughout shift.
--- NOTE | 2021-01-18 02:02 | NUR ---
MADE ROUNDS ON PT. NO S/S OF DISTRESS. CHEST RISE AND FALL IS SYMMETRICAL. REPOSITIONED PT. CALL LIGHT WITHIN REACH. ALL SAFETY MEASURES IN PLACE.
[2021-01-18 04:00] VITALS: BP 120/80
--- NOTE | 2021-01-18 04:15 | NUR ---
CHECKED ON PT NO S/S OF DISTRESS, CLEANED AND CHANGED PT DIAPER BY PERSONAL COUNSELOR. REPOSITIONED PT. ALL SAFETY MEASURES IN PLACE. WILL CONTINUE TO MONITOR.
[2021-01-18] MEDS: PIPERACILLIN/TAZOBACTAM 3.375 GM in DEXTROSE 5% 50 ML IV SCH ×2 (04:50→13:58)
[2021-01-18] MEDS: MIDODRINE 5 MG TAB PO SCH ×2 (04:50→13:00)
--- NOTE | 2021-01-18 04:50 | NUR ---
SCHEDULED MEDS GIVEN ORDERED. PT TOLERATED WELL. WILL CONTINUE TO MONITOR.
[2021-01-18 06:41] LABS: MAGNESIUM 2.1 mg/dL (1.8-2.4); PHOSPHORUS 3.9 mg/dL (2.5-4.9)
[2021-01-18 06:44] LABS: BASOPHILS % (AUTO) 1.1 % (0.0-2.0); EOSINOPHILS # (AUTO) 0.4 K/uL (0-0.4); EOSINOPHILS % (AUTO) 12.3 % (0.0-4.0); HEMATOCRIT 28.7 % (36-52); HEMOGLOBIN 9.4 g/dL (12.0-18.0); LYMPHOCYTES # (AUTO) 1.1 K/uL (2.0-11.5); LYMPHOCYTES % (AUTO) 31.2 % (20.5-51.1); MEAN CORPUSCULAR HEMOGLOBIN 31 pg (27-31); MEAN CORPUSCULAR HGB CONC 33 g/dL (33-37); MEAN CORPUSCULAR VOLUME 94.7 fL (80-94); MONOCYTES # (AUTO) 0.4 K/uL (0.8-1.0); MONOCYTES % (AUTO) 12.1 % (1.7-9.3); NEUTROPHILS # (AUTO) 1.5 K/uL (1.8-7.7); NEUTROPHILS % (AUTO) 43.3 % (42.2-75.2); PLATELET COUNT (AUTO) 163 K/uL (140-450); RED BLOOD CELL COUNT(AUTO) 3.03 MIL/uL (4.20-6.10); RED CELL DISTRIBUTION WIDTH 16.2 % (11.6-13.7); WHITE BLOOD COUNT (AUTO) 3.4 K/uL (4.8-10.8)
[2021-01-18 07:19] LABS: ALBUMIN 2.2 g/dL (3.4-5.0); ANION GAP 12.2 (8-16); CARBON DIOXIDE 30.6 mmol/L (21-32); CREATININE 0.9 mg/dL (0.6-1.3); POTASSIUM 4.8 mmol/L (3.5-5.1); TOTAL BILIRUBIN 0.3 mg/dL (0.0-1.0)
--- NOTE | 2021-01-18 07:22 | NUR ---
ENDORSED TO AM SHIFT NURSE FOR CONTINUITY OF CARE. PT IS STABLE.
--- NOTE | 2021-01-18 07:23 | NUR ---
RECEIVED REPORT FROM HAND PACKER NURSE FOR CONTINUITY OF CARE. NO S/S OF DISTRESS. BREATHING SYMMETRICAL. PT STABLE. CALL LIGHT IN REACH. ALL SAFETY MEASURES IN PLACE. IV AND TUBE FEEDING RUNNING PER MD ORDERS. O2 2L NC
[2021-01-18 08:00] VITALS: BP 167/79
[2021-01-18] MEDS: POLYETHYLENE GLYCOL 17 GM/PKT GT SCH (08:36)
[2021-01-18] MEDS: DOCUSATE 100 MG/10 ML UDC GT SCH (08:37)
[2021-01-18] MEDS: VALPROIC ACID 250 MG/5 ML UDC GT SCH (08:37)
[2021-01-18] MEDS: SENNA 8.6 MG TAB PO SCH ×3 (08:38→17:58)
[2021-01-18] MEDS: FAMOTIDINE 20 MG TAB GT SCH (08:38)
[2021-01-18] MEDS ORDERED: CRUSHER, PILL MC ONE (08:41)
[2021-01-18 09:06] LABS: LACTATE DEHYDROGENASE 182 IU/L (121-224)
--- NOTE | 2021-01-18 10:09 | NUR ---
PT RESTING IN BED. NO S/S OF DISTRESS. BREATHING SYMMETRICAL. CALL LIGHT IN REACH. ALL SAFETY MEASURES IN PLACE. O2 2L NC
[2021-01-18 12:00] VITALS: BP 145/78
--- NOTE | 2021-01-18 13:20 | NUR ---
PT RESTING IN BED. NO S/S OF DISTRESS. BREATHING SYMMETRICAL. CALL LIGHT IN REACH. ALL SAFETY MEASURES IN PLACE.
[2021-01-18] MEDS ORDERED: PIPE1SOL IV (16:08)
--- NOTE | 2021-01-18 16:12 | NUR ---
PT RESTING IN BED. NO S/S OF DISTRESS. BREATHING SYMMETRICAL. CALL LIGHT IN REACH. ALL SAFETY MEASURES IN PLACE. DC ORDER PLACED FOR TRANSFER BACK TO FACILITY. O2 2L NC.
--- NOTE | 2021-01-18 17:58 | NUR ---
PT DISCHARGED BACK TO [facility]. TRANSPORTATION ARRIVED TO TRANSFER PATIENT VIA GURNEY WITH 2L NC. TELE REMOVED. ID BANDS REMOVED. NO S/S OF DISTRESS. REPORT GIVEN TO FACILITY NURSE FOR CONTINUITY OF CARE. ALL SAFETY MEASURES IN PLACE. PERSONAL BELONGINGS AND DC FORMS IN POSSESSION
[2021-01-21 18:14] LABS: IMMUNOFIXATION RESULT, SERUM ABNORMAL
== END 2021-01-18 17:40 | DRG 871 ==
LOC: MED 12:21 → EDBEDREQ 17:11 → MTU 17:17
PROVIDERS: ADMIT Preventive Medicine Preventive Medicine/Occupational Environmental Medicine; ATTEND Preventive Medicine Preventive Medicine/Occupational Environmental Medicine
PROC: 30233N1 Transfusion of Nonautologous Red Blood Cells into Peripheral Vein, Percutaneous Approach (ICD-10-PCS; principal; 2021-01-16)
DX: A41.9 Sepsis, unspecified organism (principal); J18.9 Pneumonia, unspecified organism; E43 Unspecified severe protein-calorie malnutrition; J96.01 Acute respiratory failure with hypoxia; E11.65 Type 2 diabetes mellitus with hyperglycemia; E83.52 Hypercalcemia; E87.5 Hyperkalemia; D64.9 Anemia, unspecified; E11.22 Type 2 diabetes mellitus with diabetic chronic kidney disease; E83.42 Hypomagnesemia; F03.90 Unspecified dementia, unspecified severity, without behavioral disturbance, psychotic disturbance, mood disturbance, and anxiety; F20.9 Schizophrenia, unspecified; F79 Unspecified intellectual disabilities; G40.909 Epilepsy, unspecified, not intractable, without status epilepticus; G80.9 Cerebral palsy, unspecified; Z20.822 Contact with and (suspected) exposure to COVID-19; I25.10 Atherosclerotic heart disease of native coronary artery without angina pectoris; N18.9 Chronic kidney disease, unspecified; R13.10 Dysphagia, unspecified; E88.09 Other disorders of plasma-protein metabolism, not elsewhere classified; Y95 Nosocomial condition; Z79.82 Long term (current) use of aspirin; Z86.73 Personal history of transient ischemic attack (TIA), and cerebral infarction without residual deficits; Z93.1 Gastrostomy status; Z79.01 Long term (current) use of anticoagulants; Z79.899 Other long term (current) drug therapy; Z68.23 Body mass index [BMI] 23.0-23.9, adult
CPT/HCPCS: 36415; 36430; 71045; 74018; 80048; 80053; 80076; 82272; 82607; 82668; 82728; 82746; 83010; 83540; 83605; 83625; 83735; 83880; 84100; 84165; 85025; 85045; 85651; 86140; 86334; 86886; 86900; 86901; 86920; 87040; 87081; 94640; 96365; 99285; J0692; J2060; J2543; J7060; P9016; Q0092

== ENCOUNTER 2022-01-18 02:45 | Inpatient (IN) | payer OTHER, MEDICAID ==
[~2022-01-18] VITALS: Ht 165.1 cm; Wt 69.2 kg
[~2022-01-18 02:45] MED LIST changes: -ASPI-1822 GT; -COL100L GT; +DOCU50LI8 GT; -MERO1VIA15 IV; -[UNRECOGNIZED DRUG - CODE] GT; -[UNRECOGNIZED DRUG - CODE] IV
--- NOTE | 2022-01-18 02:49 | NUR ---
BIBA TO BED #9
[2022-01-18 02:50] VITALS: BP 136/89
--- NOTE | 2022-01-18 03:38 | NUR ---
Patient being evaluated by physician at bedside.
--- NOTE | 2022-01-18 03:45 | NUR ---
Dr. Blackwood at bedside assessing pt.
--- NOTE | 2022-01-18 03:45 | NUR ---
#22g IV placed on right hand using aseptic technique. Blood drawn and sent to lab. 10cc NS flushed and no infiltration noted.
[2022-01-18] MEDS ORDERED: PANTOPRAZOLE 40 MG INJ VIAL IVP ONE (03:55)
[2022-01-18 04:01] LABS: BASOPHILS # (AUTO) 0.1 K/uL (0.00-0.22); EOSINOPHILS # (AUTO) 0.4 K/uL (0-0.4); EOSINOPHILS % (AUTO) 6.4 % (0.0-4.0); HEMATOCRIT 37.8 % (36-52); HEMOGLOBIN 12.7 g/dL (12.0-18.0); LYMPHOCYTES # (AUTO) 1.8 K/uL (2.0-11.5); LYMPHOCYTES % (AUTO) 33.1 % (20.5-51.1); MEAN CORPUSCULAR HEMOGLOBIN 34 pg (27-31); MEAN CORPUSCULAR HGB CONC 34 g/dL (33-37); MONOCYTES # (AUTO) 0.5 K/uL (0.8-1.0); MONOCYTES % (AUTO) 9.7 % (1.7-9.3); NEUTROPHILS # (AUTO) 2.8 K/uL (1.8-7.7); NEUTROPHILS % (AUTO) 49.8 % (42.2-75.2); PLATELET COUNT (AUTO) 149 K/uL (140-450); RED BLOOD CELL COUNT(AUTO) 3.74 MIL/uL (4.20-6.10); RED CELL DISTRIBUTION WIDTH 14.5 % (11.6-13.7); WHITE BLOOD COUNT (AUTO) 5.6 K/uL (4.8-10.8)
[2022-01-18 04:23] LABS: ALBUMIN 2.8 g/dL (3.4-5.0); ANION GAP 10.4 (8-16); ASPARTATE AMINOTRANSFERASE 36 U/L (15-37); CARBON DIOXIDE 33.9 mmol/L (21-32); CHLORIDE 93 mmol/L (98-107); CREATININE 0.8 mg/dL (0.6-1.3); GLUCOSE 76 mg/dL (74-106); POTASSIUM 5.3 mmol/L (3.5-5.1); SODIUM SERUM 132 mmol/L (136-145); TOTAL BILIRUBIN 0.2 mg/dL (0.0-1.0); UREA NITROGEN, BLOOD 46 mg/dL (7-18)
--- NOTE | 2022-01-18 04:26 | NUR ---
Pt currently at CT.
[2022-01-18 04:33] LABS: PROTHROMBIN TIME 10.7 secs (10.8-13.4)
--- NOTE | 2022-01-18 04:35 | NUR ---
Pt returned from CT.
--- NOTE | 2022-01-18 04:52 | NUR ---
Covid swab done and sent to lab.
[2022-01-18] MEDS: DEXT 5% / NACL 0.45% 1,000 ML IV SCH ×2 (05:19→19:30)
--- NOTE | 2022-01-18 05:27 | NUR ---
Pt refusing to be suctioned.
--- NOTE | 2022-01-18 05:49 | NUR ---
Pt yelling yelling and becoming restless. VSS. Dr. Blackwood notified.
[2022-01-18] MEDS ORDERED: LORazepam 2 MG/ML VIAL IVP ONE (05:50)
[2022-01-18 08:00] VITALS: BP 135/74
--- NOTE | 2022-01-18 08:40 | NUR ---
PT ARRIVED AT [facility] AT 0840 VIA GURNEY. RECEIVED REPORT FROM DAVE DIAMOND FROM RN. PT AOX1. VS TEMPERATURE 98.8, PULSE 103, BP 135/65, RR18, 02 SATURATING AT 92% ON O2 4L VIA NC. IV SITE ON R HAND 22G. CALL LIGHT WITHIN REACH. ALL SAFETY MEASURES IN PLACE.
--- NOTE | 2022-01-18 08:46 | NUR ---
PT O2 CHECKED PT IS SATURATING AT 96%
--- NOTE | 2022-01-18 08:50 | NUR ---
Patient will be admitted to care of ian short. Admitted to med surg. Will go to room 120A. Belongings list completed. Report to Arline ACOSTA.
--- NOTE | 2022-01-18 12:03 | NUR ---
INFORMED DR DOWNEY THERE ARE NO ADMIT ORDERS ON PT. AWAITING FOR RESPONSE.
[2022-01-18 16:00] VITALS: BP 132/65
--- NOTE | 2022-01-18 17:15 | NUR ---
TRIED IV INSERTION ON LEFT AND RIGHT FOREARM WITH ASSISTANCE FROM JEFFREYO BY HELPING PT. ARM DUE TO PT. COMBATIVE BEHAVIOR. IV INSERTION WAS UNSUCCESSFUL. ASKED FOR ASSISTANCE FROM WILLY JACKSON FOR IV INSERTION ON RIGHT FOREARM GAUGE #24 AND IT WAS SUCCESSFUL. IVF INFUSED PER MD ORDER.
--- NOTE | 2022-01-18 19:07 | NUR ---
INFORMED DR DOWNEY PT HAS NO CODE STATUS. AWAITING RESPONSE.
--- NOTE | 2022-01-18 19:15 | NUR ---
ENDORSED PT TO [employer]PORATE MANAGER NURSE FOR CONTINUITY OF CARE. PT IS STABLE.
--- NOTE | 2022-01-18 19:30 | NUR ---
RECEIVED REPORT FROM DAY SHIFT NURSE GEO FOR CONTINUITY OF CARE. PATIENT IS CONFUSED, A&O X0. PATIENT IS ON NC 4L, BREATHING IS NORMAL WITH SYMMETRICAL RISE AND FALL OF CHEST. IV IS A 24G RFA; RUNNING D5 1/2 NS AT 100. PATIENT HAS G-TUBE; WAS INFORMED KEEPS TRYING TO PULL G-TUBE OUT. PATIENT IS ON RESTRAINTS. RESTRAINT ORDER NEEDS TO BE RENEWED AT 1345 TOMORROW. PATIENT IS SLEEPING IN BED, LYING IN SEMI-FOWLERS POSITION. BED IS IN LOWEST POSITION, WHEELS LOCKED, CALL LIGHT IN PLACE. WILL CONTINUE TO OBSERVE PATIENT.
[2022-01-18 20:00] VITALS: BP 143/69
--- NOTE | 2022-01-18 20:30 | NUR ---
OBTAINED 2000 VITALS. VITALS WERE: BP 144/95, HR 72, O2 94%, RR 18, TEMP 97.8. PATIENT IS LYING SUPINE. REMOVED RESTRAINTS, AND ASSESSED WRISTS. NO WOUNDS OR BRUISING VISIBLE. REAPPLIED RESTRAINTS. WILL CONTINUE TO OBSERVE PATIENT.
[2022-01-18] MEDS ORDERED: ONDANSETRON 4 MG/2 ML VIAL IVP PRN (22:30)
[2022-01-18] MEDS: DEXT 5% /NACL 0.9% 1,000 ML IV SCH (22:30)
[2022-01-18] MEDS ORDERED: LORazepam 2 MG/ML VIAL IVP PRN (22:30)
--- NOTE | 2022-01-18 22:40 | NUR ---
PATIENT WAS CHANGED WITH THE ASSISTANCE OF NURSE KRAIG FROM ICU AND JENS GRAY. PATIENT HAD BM AND URINATED. PATIENT TOLERATED CHANGING WELL. BREATHING IS NORMAL WITH SYMMETRICAL RISE AND FALL OF CHEST. WILL CONTINUE TO OBSERVE PATIENT.
[2022-01-19] MEDS: DEXT 5% /NACL 0.9% 1,000 ML IV SCH (01:20)
--- NOTE | 2022-01-19 01:30 | NUR ---
CHANGED PATIENT'S IVF BAG. PATIENT NOW RUNNING D5 0.9%NS AT 100. PATIENT WAS SLEEPING, LYING SUPINE. BREATHING WAS NORMAL WITH SYMMETRICAL RISE AND FALL OF CHEST. WILL CONTINUE TO OBSERVE PATIENT.
--- NOTE | 2022-01-19 03:00 | NUR ---
LOOKED IN ON PATIENT. PATIENT WAS SLEEPING IN SEMI-FOWLERS POSITION. BREATHING WAS NORMAL WITH SYMMETRICAL RISE AND FALL OF CHEST. WILL CONTINUE TO OBSERVE PATIENT.
[2022-01-19 04:00] VITALS: BP 138/69
[2022-01-19 05:50] LABS: BASOPHILS % (AUTO) 0.4 % (0.0-2.0); EOSINOPHILS % (AUTO) 0.2 % (0.0-4.0); HEMATOCRIT 32.9 % (36-52); HEMOGLOBIN 10.9 g/dL (12.0-18.0); LYMPHOCYTES # (AUTO) 1.7 K/uL (2.0-11.5); LYMPHOCYTES % (AUTO) 17.4 % (20.5-51.1); MEAN CORPUSCULAR HEMOGLOBIN 34 pg (27-31); MEAN CORPUSCULAR HGB CONC 33 g/dL (33-37); MEAN CORPUSCULAR VOLUME 101.8 fL (80-94); MONOCYTES # (AUTO) 1.1 K/uL (0.8-1.0); MONOCYTES % (AUTO) 10.6 % (1.7-9.3); NEUTROPHILS # (AUTO) 7.1 K/uL (1.8-7.7); NEUTROPHILS % (AUTO) 71.4 % (42.2-75.2); PLATELET COUNT (AUTO) 147 K/uL (140-450); RED BLOOD CELL COUNT(AUTO) 3.23 MIL/uL (4.20-6.10); RED CELL DISTRIBUTION WIDTH 14.5 % (11.6-13.7)
[2022-01-19 06:30] LABS: MAGNESIUM 2.3 mg/dL (1.8-2.4); PHOSPHORUS 2.8 mg/dL (2.5-4.9)
--- NOTE | 2022-01-19 06:31 | NUR ---
PATIENT HAS BEEN SCREENED AND CATEGORIZED LOW NUTRITION RISK. PATIENT WILL BE SEEN WITHIN 7 DAYS OF ADMISSION. 01/18/22-01/25/[address] Addendum: 01/20/22 at [address] *CORRECTION PATIENT HAS BEEN SCREENED AND CATEGORIZED HIGH NUTRITION RISK. PATIENT WILL BE SEEN WITHIN 1-2 DAYS OF ADMISSION. 01/20/[address]
[2022-01-19 06:32] LABS: ANION GAP 10.5 (8-16); CARBON DIOXIDE 30.8 mmol/L (21-32); CHLORIDE 103 mmol/L (98-107); CREATININE 0.7 mg/dL (0.6-1.3); GLUCOSE 119 mg/dL (74-106); POTASSIUM 4.3 mmol/L (3.5-5.1); SODIUM SERUM 140 mmol/L (136-145); UREA NITROGEN, BLOOD 28 mg/dL (7-18)
--- NOTE | 2022-01-19 07:00 | NUR ---
PATIENT NEEDED CHANGING. PATIENT WAS CHANGED. PATIENT HAD BM AND URINE. WILL CONTINUE TO OBSERVE PATIENT.
--- NOTE | 2022-01-19 07:30 | NUR ---
ENDORSED TO DAY SHIFT NURSE RAZA FOR CONTINUITY OF CARE. PATIENT IS STABLE.
[2022-01-19] MEDS ORDERED: PANTOPRAZOLE 40 MG INJ VIAL IVP SCH (09:00)
--- NOTE | 2022-01-19 11:30 | NUR ---
PATIENT SEEN BY DR. LONDONO, CONSENT FOR EGD OBTAINED, SPOKE TO BROTHER ANY, VERIFIED BY 2 RNS
[2022-01-19] MEDS ORDERED: MIDAZOLAM 5 MG/5 ML VIAL ONE (11:34)
[2022-01-19] MEDS ORDERED: fentaNYL citrate 0.05 MG/ML VIAL ONE (11:34)
[2022-01-19] MEDS ORDERED: diphenhydrAMINE 50 MG/ML VIAL ONE (11:34)
--- NOTE | 2022-01-19 12:13 | NUR ---
PATIENT TRANSPORTED FROM GI, HAD EGD DONE, NO DISTRESS OBSERVED, REPORT OBTAINED FROM NURSE
[2022-01-19] MEDS ORDERED: MIDAZOLAM 2 MG/2 ML VIAL IVP ONE (12:20)
[2022-01-19] MEDS ORDERED: fentaNYL citrate 0.05 MG/ML VIAL IVP ONE (12:20)
[2022-01-19] MEDS ORDERED: fentaNYL citrate 0.05 MG/ML VIAL IVP SCH (12:44)
[2022-01-19] MEDS ORDERED: MIDAZOLAM 2 MG/2 ML VIAL IVP SCH (12:44)
[2022-01-19] MEDS ORDERED: ALBUTEROL 0.083% 2.5 MG/3 ML NEBU INH PRN (14:35)
[2022-01-19] MEDS ORDERED: POLYETHYLENE GLYCOL 17 GM/PKT GT PRN (14:35)
[2022-01-19] MEDS ORDERED: guaiFENesin 20 MG/ML UDC GT PRN (14:35)
[2022-01-19] MEDS ORDERED: bisacodyL 10 MG SUPP RC PRN (14:35)
[2022-01-19] MEDS ORDERED: LORazepam 1 MG TAB PO PRN (14:35)
[2022-01-19] MEDS ORDERED: ACETAMINOPHEN 325 MG TAB GT PRN (14:35)
[2022-01-19 16:26] VITALS: BP 124/67
--- NOTE | 2022-01-19 17:15 | NUR ---
MESSAGE SENT TO DR. LONDONO TO CLARIFY HEATH ORDER, PATIENT HAD 4 VOIDS SINCE 12PM, BED SATURATED, AFTER LAST VOID 80ML URINE IN BLADDER OBSERVED VIA BLADDER SCAN, AWAITING REPLY
--- NOTE | 2022-01-19 19:30 | NUR ---
RECEIVED REPORT FROM DAY SHIFT NURSE RAZA FOR CONTINUITY OF CARE. PATIENT IS A&O X0 CONFUSED. PATIENT IS ON ROOM AIR, BREATHING IS NORMAL WITH SYMMETRICAL RISE AND FALL OF CHEST. PATIENT'S IV IS A 24G RFA, RUNNING D5 1/2NS AT 100. PATIENT IS ON RESTRAINTS. PATIENT IS LYING SEMI-FOWLERS POSITION. WILL CONTINUE TO OBSERVE PATIENT.
[2022-01-19 20:00] VITALS: BP 141/76
[2022-01-19] MEDS ORDERED: NON-FORMULARY ITEM (Famotidine 20 MG) GT SCH (21:00)
[2022-01-19] MEDS: VALPROIC ACID 250 MG/5 ML UDC GT SCH (22:24)
[2022-01-19] MEDS: APIXABAN 2.5 MG TAB GT SCH (22:26)
[2022-01-19] MEDS: QUEtiapine FUMARATE 100 MG TAB GT SCH (22:26)
[2022-01-19] MEDS: MIDODRINE 5 MG TAB PO SCH (22:28)
[2022-01-19] MEDS: FAMOTIDINE 20 MG TAB PO SCH (22:28)
--- NOTE | 2022-01-19 22:30 | NUR ---
NOTICED ON EMAR THAT MEDICATIONS WEREN'T ADMINISTERED DURING DAY SHIFT FROM 1130. MARKED MEDICATIONS NOT ADMINISTERED. ADMINISTERED 2100 MEDICATIONS VIA G-TUBE. PATIENT TOLERATED WELL. WILL CONTINUE TO OBSERVE PATIENT.
[2022-01-20] MEDS: DEXT 5% /NACL 0.9% 1,000 ML IV SCH (01:33)
--- NOTE | 2022-01-20 03:00 | NUR ---
LOOKED IN ON PATIENT. PATIENT WAS SLEEPING, LYING SEMI FOWLERS POSITION. BREATHING WAS NORMAL WITH SYMMETRICAL RISE AND FALL OF CHEST. WILL CONTINUE TO OBSERVE PATIENT.
[2022-01-20 04:00] VITALS: BP 147/70
[2022-01-20] MEDS: MIDODRINE 5 MG TAB PO SCH ×3 (05:29→21:08)
[2022-01-20 06:07] LABS: BASOPHILS # (AUTO) 0.1 K/uL (0.00-0.22); BASOPHILS % (AUTO) 0.7 % (0.0-2.0); EOSINOPHILS # (AUTO) 0.2 K/uL (0-0.4); HEMATOCRIT 30.5 % (36-52); HEMOGLOBIN 10.4 g/dL (12.0-18.0); LYMPHOCYTES # (AUTO) 2.1 K/uL (2.0-11.5); LYMPHOCYTES % (AUTO) 27.6 % (20.5-51.1); MEAN CORPUSCULAR HEMOGLOBIN 35 pg (27-31); MEAN CORPUSCULAR HGB CONC 34 g/dL (33-37); MEAN CORPUSCULAR VOLUME 102.5 fL (80-94); MONOCYTES # (AUTO) 0.9 K/uL (0.8-1.0); MONOCYTES % (AUTO) 12.1 % (1.7-9.3); NEUTROPHILS # (AUTO) 4.2 K/uL (1.8-7.7); NEUTROPHILS % (AUTO) 56.6 % (42.2-75.2); PLATELET COUNT (AUTO) 166 K/uL (140-450); RED BLOOD CELL COUNT(AUTO) 2.98 MIL/uL (4.20-6.10); RED CELL DISTRIBUTION WIDTH 14.8 % (11.6-13.7); WHITE BLOOD COUNT (AUTO) 7.4 K/uL (4.8-10.8)
[2022-01-20 07:50] LABS: ALBUMIN 2.3 g/dL (3.4-5.0); ANION GAP 11.5 (8-16); ASPARTATE AMINOTRANSFERASE 48 U/L (15-37); CARBON DIOXIDE 26.9 mmol/L (21-32); CHLORIDE 110 mmol/L (98-107); CREATININE 0.5 mg/dL (0.6-1.3); GLUCOSE 93 mg/dL (74-106); POTASSIUM 4.4 mmol/L (3.5-5.1); SODIUM SERUM 144 mmol/L (136-145); TOTAL BILIRUBIN 0.4 mg/dL (0.0-1.0); UREA NITROGEN, BLOOD 18 mg/dL (7-18)
[2022-01-20 08:00] VITALS: BP 153/68
--- NOTE | 2022-01-20 08:00 | NUR ---
PATIENT ENDORSED TO DAY SHIFT NURSE DARA FOR CONTINUITY OF CARE. PATIENT IS STABLE.
[2022-01-20] MEDS ORDERED: INSULIN LISPRO SLIDING SCALE 100 UNITS/ML VIAL SUBQ PRN (08:40)
[2022-01-20] MEDS ORDERED: DEXTROSE 50% 50 ML SYR IVP PRN (08:40)
[2022-01-20] MEDS: FAMOTIDINE 20 MG TAB PO SCH ×2 (09:00→21:07)
[2022-01-20] MEDS ORDERED: MUPIROCIN CA NASAL 2% 1GM TUBE NS SCH (09:00)
[2022-01-20] MEDS ORDERED: DOCUSATE 100 MG/10 ML UDC GT SCH (09:00)
[2022-01-20] MEDS ORDERED: CHLORHEXADINE GLUC 2% CLOTH TP SCH (09:00)
[2022-01-20] MEDS: APIXABAN 2.5 MG TAB GT SCH ×2 (09:00→21:09)
[2022-01-20] MEDS: VALPROIC ACID 250 MG/5 ML UDC GT SCH ×2 (10:14→20:59)
[2022-01-20] MEDS: BLOOD GLUCOSE MONITORING 1 DEV DEV FS SCH ×3 (12:28→21:00)
--- NOTE | 2022-01-20 13:59 | NUR ---
PT. WITH LOW PAWEL SCALE AT MODERATE TO HIGH RISK, CONTINUE TO FOLLOW PRESSURE INJURY PREVENTION INTERVENTIONS. -POSITIONING: TURN AND REPOSITION PATIENT Q 2H OR SOONER USE PILLOWS TO KEEP BONY PROMINENCES FROM DIRECT CONTACT WITH SURFACES USE REPOSITIONING WEDGES TO PROVIDE 30-DEGREE ANGLE FOR SIDE LYING POSITIONS OFFLOADING OR FOAM DRESSING TO ALL TUBING TO PREVENT MEDICAL DEVICES RELATED PRESSURE INJURY -RE-EVALUATING AND MANAGING INCONTINENCE MONITOR SKIN CONDITION DURING POSITION CHANGE DO NOT MASSAGE REDNESS, BONY PROMINENCES FREQUENT PHIL-CARE AND PROVIDE BARRIER CREAMS PRN IF SOILING MOISTURE CONTROL BY OFFER BED [place]/URINAL /ABSORBENT PAD TO WICK AND HOLD MOISTURE KEEP SKIN DRY AND PROTECT FROM FRICTION -MANAGE FRICTION/SHEAR/MOBILITY KEEP HOB AT THE LOWEST LEVEL OF ELEVATION NO MORE THAN 30 DEGREE UNLESS OTHERWISE CONTRAINDICATED USE LIFT SHEET OR TRANSFER DEVICE TO MOVE PATIENT AND PREVENT LATERAL SHEER. PROTECT HEELS, ELBOWS BONY PROMINENCES WITH SKIN BERRIES OR FOAM DRESSING IF EXPOSED TO FRICTION OFFLOAD BILATERAL HEELS BY PLACING PILLOWS UNDER CALVES AT ALL TIMES, UNLESS OTHERWISE CONTRAINDICATED -PRESSURE REDISTRIBUTION SURFACE THERAPY HERNESTO ISOFLEX MATTRESS -NUTRITION: PLEASE FOLLOW RD RECOMMENDATIONS AND OFFER NUTRITION SUPPLEMENTS IF ORDERED. PLEASE CONTACT WOUND CARE NURSE FOR ANY QUESTION AND CHANGE OF WOUND CONDITION.
--- NOTE | 2022-01-20 14:28 | NUR ---
01/20/22 RD INITIAL ASSESSMENT COMPLETED PLEASE REFER TO NUTRITION ASSESSMENT UNDER CARE ACTIVITY FOR ESTIMATED NUTRITIONAL NEEDS. 1. RECOMMEND GLUCERNA 1.2 WITH A GOAL RATE OF 50ML/HR -FWF: 150ML Q6H OR PER MD -START AT 10ML/HR AND INCREASE BY 10ML Q4H TOLERATED -WILL PROVIDE 1440KCAL AND 72GM PROTEIN, MEETING >80% ESTIMATED KCAL AND 100% ESTIMATED PROTEIN NEEDS; ADEQUATE 2. MONITOR GI SYMPTOMS AND GASTRIC RESIDUALS 3. RD TO FOLLOW-UP 3-5 DAYS, MODERATE RISK LESLEY STOUT RD
--- NOTE | 2022-01-20 15:44 | NUR ---
DC PLANNING PER NOTES, PT A&OX1, THEREFORE OUTREACHED TO [facility] TO GATHER COLLATERAL INFORMATION. SPOKE WITH АНДРЕЙ, MANAGER VEHICLE WHO REPORTS PT IS RESIDENT OF [facility], [facility],ADMISSION DATE; 03/07/21. PT IS REPORTED TO BE [facility] CONNECTED, [facility]; KESHA GHOSH, . PT IS REPORTED TO BE MINIMALLY VERBAL AND CAN MAKE SIMPLE NEEDS KNOWN. PT IS PRIMARILY WC BOUND AND REQUIRES ASSISTANCE WITH ALL ADL'S. PT IS REPORTED TO BE VERBALLY AGGRESSIVE AND YELL OBSCENITIES WHEN ANGERED. PTS FAMILY IS REPORTED TO BE MINIMALLY INVOLVED. DC PLAN IS FOR PT TO RETURN TO FACILITY WHEN MEDICALLY STABLE. Addendum: 01/20/22 at 1545 by Wesley NEWMAN Amended: Links added.
[2022-01-20 16:00] VITALS: BP 166/79
--- NOTE | 2022-01-20 19:25 | NUR ---
RECEIVED ENDORSEMENT FROM DAY SHIFT NURSE FOR CONTINUITY OF CARE. PT IS AWAKE, ALERT AND VERBALIZED NEEDS. PT IS INCONTINENT. IV SALINE LOCK IS ON RIGHT FOREARM 20G. SKIN INTACT AND WARM. IV FLUIDS HYDRATION IS D5 NORMAL SALINE IS AT 40ML/HR. PT IS ON GTUBE WITH TUBE FEEDING OF GLUCERNA 1.2 IS AT 10ML/HR. GTUBE IS INTACT AND PATENT. CONTINUE MONITORING.
--- NOTE | 2022-01-20 20:12 | NUR ---
BREATH SOUNDS ARE CLEAR. NO SOB NOTED. NO HHNTX GIVEN
[2022-01-20] MEDS: QUEtiapine FUMARATE 100 MG TAB GT SCH (20:59)
--- NOTE | 2022-01-20 21:08 | NUR ---
MIDODRINE IS NOT ADMINISTERED DUE TO PT BP 140/71. PT IS AWAKE, ALERT AND RESPONSIVE. PT IS ON STABLE CONDITION.
--- NOTE | 2022-01-20 21:45 | NUR ---
BLOOD SUGAR CHECK = 117, NO SLIDING SCALE COVERAGE. NO INSULIN NEEDED.
--- NOTE | 2022-01-20 22:05 | NUR ---
PT IS ON STABLE CONDITION. PT IS DISCHARGE HOME AND IS AWAKE, ALERT AND WELL RESPONSIVE. PT DENIES OF HAVING PAIN OR DISCOMFORT. SKIN INTACT AND WARM. PT IS TRANSPORTED HOME VIA GURNEY. HOME ARRANGED TRANSPORTATION.
== END 2022-01-20 22:05 | disposition home or self-care (01) | DRG 378 ==
LOC: MED 02:45 → MMU 04:48 → MTU 07:41
PROVIDERS: ADMIT Preventive Medicine Preventive Medicine/Occupational Environmental Medicine; ATTEND Preventive Medicine Preventive Medicine/Occupational Environmental Medicine
PROC: 0DJ08ZZ Inspection of Upper Intestinal Tract, Via Natural or Artificial Opening Endoscopic (ICD-10-PCS; principal; 2022-01-19 11:45)
DX: K92.0 Hematemesis (principal); E44.0 Moderate protein-calorie malnutrition; K25.4 Chronic or unspecified gastric ulcer with hemorrhage; D64.9 Anemia, unspecified; F03.90 Unspecified dementia, unspecified severity, without behavioral disturbance, psychotic disturbance, mood disturbance, and anxiety; Z20.822 Contact with and (suspected) exposure to COVID-19; K59.00 Constipation, unspecified; I10 Essential (primary) hypertension; G40.909 Epilepsy, unspecified, not intractable, without status epilepticus; E11.65 Type 2 diabetes mellitus with hyperglycemia; Z79.01 Long term (current) use of anticoagulants; Z86.73 Personal history of transient ischemic attack (TIA), and cerebral infarction without residual deficits; Z68.25 Body mass index [BMI] 25.0-25.9, adult
CPT/HCPCS: 36415; 71045; 80048; 80053; 80156; 82948; 83735; 84100; 85025; 85610; 85730; 87081; 96374; 96375; 96376; 99291; C9113; J1200; J1815; J2060; J2250; J3010; Q0092